=== PATIENT | female | born 1980 | race Caucasian/White ===

== ENCOUNTER 2020-01-11 21:57 | Emergency (ER) | payer OTHER, SELFPAY ==
--- NOTE | ~2020-01-11 | CT_ITS ---
EXAMINATION: CT abdomen pelvis w con DATE: 01/11/2020 23:09 INDICATION: Lower abdominal pain TECHNIQUE: Computed tomography (CT) of the abdomen and pelvis was performed with 100 cc Omnipaque 350 intravenous contrast. The dose-length product was 1502.54 mGy-cm. Automated exposure control and ite rative reconstruction technique were employed. COMPARISON: None. FINDINGS: Lung bases are unremarkable. No significant pleural or pericardial effusion. Status post cholecystectomy. No significant vascular abnormality. Periaortic lymph nodes are likely r eactive, largest measuring 1.4 cm, axial image 99. Small fat-containing umbilical hernia. The liver, spleen, pancreas, adrenal glands and right kidney are unremarkable. There is a 2 cm left r enal cyst. 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 Bowel pattern is nonobstructive. There is no fluid in the endometrium with enhancement of the endomet rial lining. No free air or free fluid. No bowel obstruction. IMPRESSION: 1. Moderate fluid in the endometrium with enhancement of the endometrial lining. Differential diagnos is includes simple fluid, hemorrhagic content/clot and infection. Reviewed, dictated and finalized at location A. [employer] IMPRESSION: 1. Moderate fluid in the endometrium with enhancement of the endometrial lining . Differential diagnosis includes simple fluid, hemorrhagic content/clot and in fection.
[2020-01-11 21:59] VITALS: BP 130/97; PULSE 85; RESP 16; TEMP 36.1; O2SAT 100
[2020-01-11 22:30] LABS: Basophils Percent Auto 0.4 % (0.2-1.2); Eosinophils Absolute Auto 0.2 K/mm3 (0-0.3); Eosinophils Percent Auto 2.6 % (0-4.4); Hematocrit 37.8 % (37.0-47.0); Hemoglobin 12.9 g/dL (12.0-15.0); Immature Granulocyte Absolute 0.03 K/mm3 (0.00-0.031); Immature Granulocyte Percent A 0.4 % (0-0.5); Lymphocytes Absolute Auto 1.86 K/mm3 (0.9-3.2); Lymphocytes Percent Auto 25.9 % (18.3-44.2); Mean Corpuscular HGB Conc 34.1 g/dl (32-36); Mean Corpuscular Hemoglobin 30.4 pg (26-34); Mean Corpuscular Volume 88.9 fl (80-100); Mean Platelet Volume 9.9 fl (7.4-10.4); Monocytes Absolute Auto 0.5 K/mm3 (0.1-0.6); Monocytes Percent Auto 7.5 % (2.6-8.5); Neutrophils Absolute Auto 4.5 K/mm3 (1.3-6.7); Neutrophils Percent Auto 63.2 % (45.5-73.1); Platelet Count Result 223 k/mm3 (150-375); Red Blood Count 4.25 M/mm3 (4.2-5.4); Red Cell Distribution Width 12.9 % (11.5-14.5); White Blood Count 7.2 K/mm3 (4.5-10.0)
[2020-01-11 22:34] LABS: Mucus Urine Heavy /lpf; Squamous Epithelial Cell Urine Moderate /hpf (Few); WBC Urine 0-3 /hpf
--- NOTE | 2020-01-11 22:34 | ED.ABDPAIN ---
HPI - Abdominal Pain General Chief Complaint: Abdominal Pain Stated Complaint: lower abd pain, nausea, dairrhea Time Seen by Provider: 01/11/20 22:32 Source: patient and RN notes reviewed Mode of arrival: ambulatory Limitations: no limitations History of Present Illness HPI narrative: Pt is a 39 y/o female with a Hx of hepatitis C, who presents to the ED with c/o rt lower ABD pain starting this morning and worsening in the past 6 hours. She describes her pain as stabbing. Pt states that her pain initially felt like menstrual cramps, but denies any current vaginal bleeding. She also reports mild diarrhea, but denies any fever or chills. MD elicited complaint: abdominal pain Onset (ago): day(s) (1) Pain Consistency: other (worsening) Location: RLQ Quality: stabbing Associated symptoms: diarrhea Related Data Home Medications Medication Instructions Recorded Confirmed clonazepam 01/11/20 escitalopram oxalate mg 01/11/20 Allergies Allergy/AdvReac Type Severity Reaction Status Date / Time Penicillins Allergy Severe Rash Verified 01/11/20 22:02 Review of Systems Review of Systems: All systems reviewed & are unremarkable except as noted in HPI and below Constitutional: Constitutional: Denies chills and Denies fever(s) Gastrointestinal: Gastrointestinal: Reports abdominal pain (rt lower ABD pain) and Reports diarrhea Genitourinary: Genitourinary: Denies abnormal vaginal bleeding PMF Past Medical History Medical History Anxiety Depression Hepatitis C Surgical History Surgical History History of endometrial ablation Hx of cholecystectomy Hx of tubal ligation Social History Social History Smoking status: Current every day smoker Gender identity (if verbalized by the patient): Female Exam Const: General: cooperative, healthy appearing, comfortable, no acute distress, well developed, alert and awake; No confusion Orientation/consciousness: oriented to person, oriented to place, oriented to time, patient oriented x3 and No confusion Limitations: no limitations Resp: Effort & Inspection: normal respiratory effort, able to speak in complete sentences, no respiratory distress and not tachypneic Auscultation: clear to auscultation bilaterally, no crackles, no rales, no rhonchi and no wheezes Cardio: Rate: regular rate Rhythm: regular rhythm GI: Inspection: normal to inspection GI Palp: Yes Tenderness to palpation present (GI) (rt lower ABD tenderness) Auscultation: normal bowel sounds : General: Yes no CVA tenderness Skin: General skin exam: normal color, no rashes or lesions noted, elasticity normal and turgor normal Neuro: General: oriented to person, oriented to place, oriented to time, patient oriented x3, tone normal, moves all extremities and No confusion Speech: No Abnormal speech present Sensory Exam: No Sensory deficit (Neuro) Extrem: General: normal to inspection, full ROM and capillary refill normal Psych: Appearance: grossly normal and well kempt Mental Status: mental status grossly normal Speech and movement: Normal speech and movement present Affect: normal affect Attitude: cooperative Thought process: Normal thought process present Thought content: Yes Normal thought content present Insight: Good insight present (Psych) Judgement: Good judgement present (Psych) Course Vital Signs Vital signs: Vital Signs Temperature 36.1 C L 01/11/20 21:59 Pulse Rate 85 01/11/20 21:59 Respiratory Rate 16 01/11/20 21:59 Blood Pressure 130/97 H 01/11/20 21:59 Pulse Oximetry 100 01/11/20 21:59 Temperature 36.1 C L 01/11/20 21:59 Pulse Rate 65 01/11/20 23:29 Respiratory Rate 12 01/11/20 23:29 Blood Pressure 120/80 01/11/20 23:29 Pulse Oximetry 97 01/11/20 23:29 MDM - Abdominal Pain Lab Data Result diagram
[2020-01-11 22:36] VITALS: BP 138/94; PULSE 2; RESP 20; O2SAT 100
[2020-01-11 22:41] LABS: Alanine Aminotransferase 14 U/L (4-35); Alkaline Phosphatase 60 U/L (38-126); Aspartate Amino Transferase 20 U/L (14-36); Bilirubin,Total 0.5 mg/dL (0.2-1.3); Blood Urea Nitrogen 7 mg/dL (7-17); Calcium 8.8 mg/dL (8.4-10.2); Carbon Dioxide 22 mmol/L (22-30); Chloride 104 mmol/L (98-107); Estimated CRCL calculation 102 ml/min; Estimated Glomerular Filt Rate > 60; Glucose 127 mg/dL (65-105); Lipase 24 U/L (23-300); Potassium 3.6 mmol/L (3.4-5.0); Sodium 138 mmol/L (137-145)
[2020-01-11 22:43] LABS: Add Urine Microscopic? YES; Appearance Urine Clear (Clear); Bacteria Urine Trace /hpf; Bilirubin Urine Negative (Negative); Blood Urine 1+ (Negative); Color Urine Yellow (Yellow); Glucose Urine UA Negative (Negative); Ketones Urine Negative (Negative); Leukocyte Esterase Ur Negative LEU/UL (Negative); Nitrate Urine Negative (Negative); Protein Urine Negative (Negative); Specific Grav Ur 1.019 (1.001-1.035); Urobilinogen Urine Negative mg/dL (<2.0)
[2020-01-11] MEDS: KETOROLAC 30 MG/ML VIAL (*BKC) IV PUSH (22:52)
[2020-01-11] MEDS: PROMETHAZINE HCL 25 MG/ML AMPUL 12.5 MG IV PUSH (22:53)
[2020-01-11 23:29] VITALS: BP 120/80; PULSE 65; RESP 12; O2SAT 97
[2020-01-12 00:20] VITALS: BP 128/88; PULSE 80; RESP 19; O2SAT 97
== END 2020-01-12 00:20 | disposition home or self-care (01) ==
PROVIDERS: Emergency Medicine; Emergency Provider Emergency Medicine
DX: R10.31 Right lower quadrant pain (principal); F41.9 Anxiety disorder, unspecified; F32.9 Major depressive disorder, single episode, unspecified; F17.200 Nicotine dependence, unspecified, uncomplicated; Z86.19 Personal history of other infectious and parasitic diseases
CPT/HCPCS: 36415; 74177; 80053; 81001; 81025; 83690; 85025; 96374; 96375; 99284; A9270; J1885; J2550; Q9967

== ENCOUNTER 2020-04-05 07:08 | Outpatient (CLI) | payer OTHER, SELFPAY ==
[2020-04-05 20:52] LABS: SARS-CoV-2 RNA PCR Negative
== END 2020-04-05 07:09 | disposition home or self-care (01) ==
LOC: ANHCOVIDDT 07:09
PROVIDERS: Visit Provider Obstetrics & Gynecology
DX: Z01.818 Encounter for other preprocedural examination (principal); Z11.59 Encounter for screening for other viral diseases
CPT/HCPCS: 87635; U0003

== ENCOUNTER 2020-04-05 09:57 | Outpatient (CLI) | payer OTHER, SELFPAY ==
[2020-04-05 11:03] LABS: Hematocrit 39.7 % (37.0-47.0); Hemoglobin 13.4 g/dL (12.0-15.0)
[2020-04-05 11:14] LABS: Prothrombin Time 12.7 Seconds (11.1-14.7)
[2020-04-05 11:15] LABS: Partial Thromboplastin Time 29.7 SECONDS (22.3-36.8)
[2020-04-05 11:28] LABS: Blood Urea Nitrogen 12 mg/dL (7-17); Calcium 9.1 mg/dL (8.4-10.2); Carbon Dioxide 24 mmol/L (22-30); Chloride 107 mmol/L (98-107); Estimated Glomerular Filt Rate > 60; Glucose 86 mg/dL (65-105); Potassium 3.9 mmol/L (3.4-5.0); Sodium 136 mmol/L (137-145)
== END 2020-04-05 09:58 | disposition home or self-care (01) ==
LOC: ANHSURGERY 09:59
PROVIDERS: Anesthesiology; Visit Provider Obstetrics & Gynecology
DX: Z01.818 Encounter for other preprocedural examination (principal); N92.0 Excessive and frequent menstruation with regular cycle; B19.20 Unspecified viral hepatitis C without hepatic coma
CPT/HCPCS: 36415; 80048; 85014; 85018; 85610; 85730; 86850; 86900; 86901

== ENCOUNTER 2020-04-08 01:30 | Day surgery (SDC) | payer OTHER, SELFPAY ==
[2020-04-03 08:53] VITALS: BMI 39.9
[2020-04-08] VITALS (14 sets, daily range): BP systolic 99–170; BP diastolic 60–92; PULSE 58–94; RESP 14–24; TEMP 36.2–37.1; O2SAT 94–100
[2020-04-08] MEDS: LACTATED RINGERS 1,000 ML 30 ML IV CONT ×2 (06:43→10:28)
[2020-04-08] MEDS: IBUPROFEN IV 800 MG/200 ML 800 MG/200 ML BAG 400 MG IVPB (06:50)
--- NOTE | 2020-04-08 06:50 | WPDANESEPPF ---
Anes - Initial Pre Proc Eval Procedure: Operation Date: 04/08/20 07:30 Proposed Procedures p Total Laparoscopic Assisted Hysterectomy - Yojana Whiting MD Date/Time: 04/08/20 06:50 Surgeon: Yojana Whiting MD Pre Op Diagnosis: Menorrhagia, dysmenorrhea Patient Data Age: 39 Gender: F Height: 5 ft 5 in Weight: 108.86 kg Allergies Allergy/AdvReac Type Severity Reaction Status Date / Time Penicillins Allergy Severe Rash Verified 04/03/20 08:55 Home Medications Medication Instructions Recorded Confirmed Type clonazepam 0.5 mg PO DIRECTED PRN 01/11/20 04/03/20 History escitalopram oxalate 20 mg PO DAILY 01/11/20 04/03/20 History hydrocodone-acetaminophen 1 - 2 tablet PO Q4H PRN 04/03/20 04/03/20 History Patient hx anesthesia problems: none Family hx anesthesia problems: none PMFSH Past Medical History Medical History Anxiety Depression Hepatitis C Surgical History Surgical History History of endometrial ablation Hx of cholecystectomy Hx of tubal ligation Social History Social History Smoking status: Current every day smoker Gender identity (if verbalized by the patient): Female Anes - Eval Final PreProcedure Day of Procedure 04/08/20 06:50 Patient weight: morbidly obese Heart: regular rate and rhythm Lungs: decreased breath sounds Airway: Mallampati scale class 1 Neurological: alert and oriented Last oral intake: >/= 8 hours ASA classification: III Emergent: no Anesthetic plan: proceed Anesthesia type and monitoring: general ETT and standard monitoring Informed Consent: The patient's anesthetic plan and its attendant risks and benefits were discussed with the patient/family/POA. Questions were solicited and answers provided to the satisfaction of the patient/family/POA.
--- NOTE | 2020-04-08 07:22 | WPDHPUPDATE1 ---
History and Physical Update Update Date/Time: 04/08/20 07:22 History and Physical has been reviewed, including an updated exam of the patient. There are NO changes in the patient's condition. Risks, benefits, and alternatives have been discussed and questions answered. Patient agrees to proceed with procedure.
[2020-04-08] MEDS: CLINDAMYCIN 900 MG/NS 50 ML 900 MG/50 ML PIGGYBACK 50 MG IVPB (07:44)
[2020-04-08] MEDS: GENTAMICIN SULFATE INJ 390 MG in DEXTROSE 5% 100 ML 100 MG IVPB (07:47)
--- NOTE | 2020-04-08 10:21 | P.OP_ITS ---
Procedure Note - Detailed Date of procedure: 04/08/20 Pre-op diagnosis: Menorrhagia, dysmenorrhea Severe menorrhagia, dysmenorrhea Post-op diagnosis: same Procedure performed: Total laparoscopic hysterectomy bilateral salpingo- oophorectomy Description of procedure: The patient was taken to the operating room. She was prepped and draped in the dorsal lithotomy position. A speculum was placed in the vagina. The cervix was grasped with a tenaculum. Stay sutures were placed at 3 and 9:00 a.m. of 0 Vicryl. The stay sutures were brought through the Rupal up. The CHUN manipulator was placed in the vagina with a fixed Rupal cup. The cup was then pushed up around the cervix. The sutures were tied to the handle of the CHUN manipulator. A 5 mm incision was made on the abdominal skin of the left upper quadrant using a scalpel. A 5 mm trocar was inserted into the intra-abdominal cavity under direct visualization the scope. Pneumoperitoneum was achieved. An 11 mm incision was made in the left lower quadrant of the abdomen with a scalpel. A 11 mm trocar was inserted into the intra-abdominal cavity under direct visualization the scope. A 5 mm periumbilical incision was made. A 5 mm scope was placed into the intra-abdominal cavity under direct visualization of the scope. The ureters were identified. The ureters were observed to be away from the infundibulopelvic ligaments. These infundibulopelvic ligaments were isolated, cauterized, and transected with LigaSure cautery. This was done in a bilateral fashion. The para ovarian tissue along the pelvic sidewall was cauterized and transected in a bilateral fashion using the ligature cautery. The round ligaments were cauterized and transected bilaterally with LigaSure cautery. The broad ligaments were cauterized and transected along the lateral aspects of the uterus down the level of the uterine arteries. A bladder flap was created using sharp and blunt dissection. The ureters were dissected out bilaterally down to the level of the uterine arteries. The could be visualized from the pelvic brim down the uterine arteries. Staying very close to the cervix the parametrium was cauterized transected in a stepwise fashion down to the level of the Rupal cup. The Bladder flap was moved distally over the Rupal cup using sharp and blunt dissection. The cup was visualized and a complete 360 degree papillary around the cervix. An incision was made with unipolar cautery down under the Rupal cup creating a colpotomy incision all the way around the cervix. The uterus tubes and ovaries were taken out through the vagina. A pneumo occluder was placed in the vagina. The vagina was closed with 0 V lock suture in a running fashion. The ureters were identified again and found to be intact elevated and the uterine arteries. The pelvis was irrigated with a copious amount of antibiotic irrigation. The pneumoperitoneum was reduced. The trocars were removed. The skin was closed subcuticular 4 Monocryl covered with Dermabond. The pneumo occluder was removed from the vagina. The vagina was irrigated with Betadine. The patient tolerated the procedure well. She was taken to the recovery room in stable condition. Sponge lap and needle counts were correct x2. Anesthesia: GETA Surgeon: Yojana Whiting MD Estimated blood loss (mL): 200 Drains: No Packing: No Pathology: yes Complications: No immediate complications Condition: stable Disposition: PACU Findings: Grossly normal-appearing tubes and ovaries. Enlarged uterus.
--- NOTE | 2020-04-08 10:26 | SUR.OPER ---
CHECKED OUT 1 AMP TERRAAL FOR THIS PT AND GAVE TO AMOR WESTFALL CRNA FOR THIS PT
--- NOTE | 2020-04-08 11:03 | SUR.PHASEI ---
1104 SPOKE WITH PARTNER ZACKARY PER PHONE- UPDATE & ROOM NUMBER [id number].
--- NOTE | 2020-04-08 11:30 | PC.NURSE ---
This patient, Ingrid Long, was received from PACU on 04/08/20 at 1130. Patient/family oriented to unit policies and routines
[2020-04-08] MEDS: ESTRADIOL 7 DAY 0.1 MG PATCH TRANSDERM (11:50)
[2020-04-08] MEDS: LACTATED RINGERS 1,000 ML 125 ML (12:15)
[2020-04-08] MEDS: KETOROLAC 30 MG/ML VIAL (*BKC) IV PUSH ×2 (12:20→19:53)
[2020-04-08] MEDS: MORPHINE SULFATE 4 MG/ML INJ IV PUSH ×2 (12:25→16:00)
[2020-04-08] MEDS: SIMETHICONE 80 MG TAB.CHEW PO (16:13)
[2020-04-08] MEDS: CLONAZEPAM 0.5 MG TAB PO (21:41)
[2020-04-09 05:27] VITALS: BP 124/78; PULSE 64; RESP 18; TEMP 36.5; O2SAT 98
[2020-04-09] MEDS: SIMETHICONE 80 MG TAB.CHEW PO (07:00)
[2020-04-09] MEDS: IBUPROFEN 600 MG TABLET PO (07:00)
[2020-04-09] MEDS: ESCITALOPRAM OXALATE 10 MG TABLET 20 MG PO (07:01)
--- NOTE | 2020-04-09 07:29 | PM.GYNPNOP ---
[employer]CHIT[employer] - A/P Postoperative Procedures: Procedures Operation Date: 04/08/20 07:30 Actual Procedures Side Surgeon p Total Laparoscopic Assisted Hysterectomy, bilatersl salpingectomy, bilateral oopherectomy Bilateral Yojana Whiting MD Postoperative day: 1 Postoperative status: doing well and other (Tollerating Regular Diet) Postoperative plan: routine post-op care and discharge Time Spent With Patient Time: Total time spent is greater than 50% in coordination of care (as documented) at patient's floor/unit and/or counseling patient: Time with patient: 15 - 25 minutes JAVA [employer] ARCHITECT- PN:Subj Post-Op Subjective Date/time seen: 04/09/20 07:29 Subjective: patient reports feeling better, pain is well controlled and patient is tolerating oral intake Exam Const: General: cooperative, healthy appearing, comfortable and no acute distress Resp: Auscultation: no crackles, no rales, no rhonchi and no wheezes Cardio: Rhythm: regular rhythm Heart sounds: no click and no murmurs GI: Inspection: non-distended Auscultation: normal bowel sounds Other: Incisions - CDI Extrem: General: normal to inspection, no pedal edema and no calf tenderness J[employer] ARCHITECT - PN: Obj Data Vital Signs Vital Signs: Vital Signs - 24 hr 04/08/20 10:28 04/08/20 10:40 04/08/20 10:55 Temperature 97.2 F L Pulse Rate 94 88 90 Respiratory Rate 16 14 14 Blood Pressure 136/72 129/77 119/69 Pulse Oximetry 99 100 100 04/08/20 11:10 04/08/20 11:20 04/08/20 11:45 Temperature Pulse Rate 81 75 75 Respiratory Rate 14 14 18 Blood Pressure 122/71 115/69 113/68 Pulse Oximetry 94 94 97 04/08/20 12:00 04/08/20 12:30 04/08/20 13:00 Temperature 98 F 98.6 F Pulse Rate 89 81 71 Respiratory Rate 18 18 18 Blood Pressure 99/81 L 107/72 107/60 Pulse Oximetry 98 97 98 04/08/20 14:00 04/08/20 15:00 04/08/20 19:40 Temperature 98.8 F Pulse Rate 71 81 65 Respiratory Rate 18 18 24 H Blood Pressure 103/60 107/84 133/89 Pulse Oximetry 100 100 100 04/08/20 23:10 04/09/20 05:27 Temperature 98.6 F 97.7 F Pulse Rate 68 64 Respiratory Rate 18 18 Blood Pressure 128/75 124/78 Pulse Oximetry 97 98 Intake/Output Intake/Output: Intake & Output 04/06/20 04/07/20 04/08/20 04/09/20 23:59 23:59 23:59 23:59 Intake Total 1100 Output Total 1475 Balance -375 Meds/Results Medications: Active Medications Generic Name Dose Route Start Last Admin Trade Name Freq PRN Reason Stop Dose Admin Hydrocodone Bitart/Acetaminophen 1 tab 04/08/20 11:23 [place] 5-325 Mg PO Q3H PRN Pain Rated 5 or Less Hydrocodone Bitart/Acetaminophen 1 tab 04/08/20 11:23 04/09/20 07:00 [place] 10-325 Mg PO 1 tab Q3H PRN Administration Pain Rated 6 or Greater Escitalopram Oxalate 20 mg 04/09/20 09:00 04/09/20 07:01 Lexapro PO 10 mg DAILY ZAKIA Administration Estradiol 0.1 mg 04/08/20 10:30 04/08/20 11:50 [place] 7 Day TRANSDERM 0.1 mg Mo@0900 ZAKIA Administration Ibuprofen 600 mg 04/08/20 11:23 04/09/20 07:00 Motrin PO 600 mg Q6H PRN Administration Cramping Ketorolac Tromethamine 30 mg 04/08/20 12:10 04/08/20 19:53 Toradol Inj IV PUSH 04/13/20 12:11 30 mg Q6H PRN Administration Pain Rated 4-6 Morphine Sulfate 4 mg 04/08/20 12:10 04/08/20 16:00 Morphine Sulfate Inj IV PUSH 4 mg Q4H PRN Administration Severe breakthrough pain Naloxone HCl 0.1 mg 04/08/20 11:23 Narcan IV PUSH Q2M PRN Respiratory rate less than 10 Naloxone HCl 0.1 mg 04/08/20 12:10 Narcan IV PUSH Q2M PRN Respiratory rate less than 10 Simethicone 80 mg 04/08/20 17:00 04/09/20 07:00 Mylicon PO 80 mg QID ZAKIA Administration
[2020-04-09 08:05] VITALS: BP 141/83; PULSE 72; RESP 18; TEMP 36.6; O2SAT 97
--- NOTE | 2020-04-09 10:18 | WPDANESPN ---
Anes - Prog Note Post-Op Date/Time: 04/09/20 10:18 Cardiovascular status: normal Respiratory status: normal Airway patency: baseline Mental status: baseline Post-Op hydration status: normal Vital Signs: Last Vital Signs Temp 36.6 C 04/09/20 08:05 Pulse 72 04/09/20 08:05 Resp 18 04/09/20 08:05 BP 141/83 H 04/09/20 08:05 Pulse Ox 97 04/09/20 08:05 I/O: Intake & Output 04/08/20 04/09/20 04/09/20 23:59 07:59 15:59 Intake Total 600 Output Total 1000 Balance -400 Post-procedural complaints: none Patient Feedback: Patient satisfied with anesthetic care.
== END 2020-04-09 09:52 | disposition home or self-care (01) ==
LOC: ANHSURGERY 09:04 → ANHOB2 11:44
PROVIDERS: Visit Provider Obstetrics & Gynecology
PROC: 0UT9FZZ Resection of Uterus, Via Natural or Artificial Opening With Percutaneous Endoscopic Assistance (ICD-10-PCS; CPT 58552; principal; 2020-04-08 07:30)
DX: N92.0 Excessive and frequent menstruation with regular cycle (principal); N94.6 Dysmenorrhea, unspecified
CPT/HCPCS: 58552; 88307; 99199; A9270; J1170; J1580; J1741; J1885; J2001; J2250; J2270; J2405; J2704; J3010; J7030; J7120

== ENCOUNTER 2020-04-15 07:32 | Emergency (ER) | payer OTHER, SELFPAY ==
--- NOTE | ~2020-04-15 | CT_ITS ---
EXAMINATION: CT abdomen pelvis w con EXAM DATE: 04/15/2020 09:06 INDICATION: Low abdominal pain and vomiting. Recent hysterectomy. TECHNIQUE: Spiral CT of the abdomen and pelvis was performed following intravenous injection of 100 m L Omnipaque 350. Axial, coronal and sagittal images were reviewed. The dose-length product (DLP) fo r this examination was 1417.81 mGy-cm. The exposure was tailored according to patient size (auto mA exposure control), and iterative reconstruction (ASIR) was used as additional dose reduction techniqu e. Comparison is made to prior examination from 01/11/2020. FINDINGS: The liver, spleen, adrenal glands and pancreas are unremarkable. There are cholecystectomy clips. Portal and splenic veins are patent. Kidneys enhance symmetrically. There is no hydronephr osis. There is a left renal cyst measuring 1.8 cm. Small pocket of fluid in the hysterectomy bed pro bably postoperative seroma measuring up to 3.8 cm. Infected fluid not radiologically excludable The b ladder is unremarkable. There is no retroperitoneal or pelvic lymphadenopathy. The appendix is not positively visualized. There is no pericecal inflammatory change to suggest appe ndicitis. The stomach and small bowel are unremarkable. There is expected amount of colonic stool. No free intraperitoneal gas. The heart is normal in size. There are no pericardial or pleural e ffusions. The lung bases are unremarkable. The bones are unremarkable. IMPRESSION: Pelvic fat stranding, small fluid collection likely postoperative changes. Infected fluid not radiographically excludable. Reviewed, dictated and finalized at location A. IMPRESSION: Pelvic fat stranding, small fluid collection likely postoperative c hanges. Infected fluid not radiographically excludable.
[2020-04-15 07:38] VITALS: BP 129/99; PULSE 70; RESP 17; TEMP 36.9; O2SAT 99
--- NOTE | 2020-04-15 08:12 | ED.GENADULT ---
HPI - General Adult General Chief complaint: Unspecified Stated complaint: post op compl Time Seen by Provider: 04/15/20 07:38 Source: patient Mode of arrival: ambulatory Limitations: no limitations History of Present Illness HPI narrative: This patient is a 39 year old female who is POD 7 s/p total hysterectomy that presents to ER for evaluation of nausea , vomiting and intermittent abdominal pain. Patient had surgery on 04/08/[address] Whiting at [facility], and she states she was doing well until Wednesday. She has been taking colace every 8 hours until Wednesday because she starting having multiple bowel movements and passing gas. She reports she is having intermittent diffuse sharp abdominal pain when she is passing gas. She has come to the ER this morning because she is concerned that she started vomiting. She ran out of her pain medication but she has been replacing it with 800 mg ibuprofen every 4 hours. Her last bowel movement was this morning and she decribes it as light yellow color. She denies melena or blood in her stool. She also denies urinary symptoms. Onset (ago): day(s) (3) Related Data Home Medications Medication Instructions Recorded Confirmed clonazepam 0.5 mg PO DIRECTED PRN 01/11/20 04/08/20 escitalopram oxalate 20 mg PO DAILY 01/11/20 04/08/20 hydrocodone-acetaminophen 1 - 2 tablet PO Q4H PRN 04/03/20 04/08/20 Allergies Allergy/AdvReac Type Severity Reaction Status Date / Time Penicillins Allergy Severe Rash Verified 04/15/20 08:20 Review of Systems Review of Systems: All systems reviewed & are unremarkable except as noted in HPI and below Constitutional: Constitutional: Denies fever(s) Cardiovascular: Cardiovascular: Denies chest pain Respiratory: Respiratory: Denies cough and Denies dyspnea Gastrointestinal: Gastrointestinal: Reports abdominal pain, Reports diarrhea, Reports nausea and Reports vomiting Genitourinary: Genitourinary: Denies hematuria, Denies nocturia, Denies dysuria and Denies urinary incontinence PMFSH Social History Social History Smoking status: Current every day smoker Gender identity (if verbalized by the patient): Female Exam Narrative: Exam Narrative: GENERAL: Well-appearing, well-nourished, and in no acute distress. HEAD: Normocephalic, atraumatic EYES: PERRLA and EOMI, conjunctiva clear without discharge THROAT:Mucous membranes moist, NECK: Supple, without lymphadenopathy or mass RESPIRATORY: No respiratory distress, Airway patent, Respirations non-labored, Clear to auscultation without rales, rhonchi or wheeze HEART: Regular rate and rhythm. No murmur heard. Normal peripheral pulses. . EXTREMITIES: No edema, normal strength with full range of motion. NEURO: Alert and oriented x3. CN 2-12 grossly intact. No focal deficits. PSYCH: Normal mood and affect. GI: GI Palp: Yes Soft to palpation, Yes Tenderness to palpation present (GI) (lower abdomen bilateral lower quadrant), No Guarding due to palpation present (GI) and No Rigid due to palpation Skin: Other: abdomen with port hole incisions are closed intact, no drainage, no surrounding erythema. bruising to abdominal wall Course Reevaluation(s) Reevaluation #1: Patient states she feels better. She was able to PO challenge. She is standing up in good spirits. she has not additional questions are concerns. Date: 04/15/20 Time: 10:42 Consultations Consultation #1: I discussed case with Dr. Ugalde. PAtient will postoperative changes on CT, no fever and s ymptomaticically improved, She states patient likely has follow up appointment this week so she can follow up . Date: 04/15/20 Time: 10:42 Vital Signs Vital signs: Vital Signs Temperature 98.4 F 04/15/20 07:38 Pulse Rate 70 04/15/20 07:38 Respiratory Rate 17 04/15/20 07:38 Blood Pressure 129/99 H 04/15/20 07:38 Pulse Oximetry 99 04/15/20 07:38 Te
[2020-04-15] MEDS: LACTATED RINGERS 1,000 ML 999 ML IV CONT (08:21)
[2020-04-15] MEDS: PANTOPRAZOLE SODIUM IV 40 MG VIAL IV PUSH (08:21)
[2020-04-15] MEDS: ONDANSETRON INJ 4 MG/2 ML VIAL IV PUSH (08:21)
[2020-04-15 08:29] LABS: Basophils Percent Auto 0.4 % (0.2-1.2); Eosinophils Absolute Auto 0.5 K/mm3 (0-0.3); Eosinophils Percent Auto 6.8 % (0-4.4); Hematocrit 37.1 % (37.0-47.0); Hemoglobin 12.5 g/dL (12.0-15.0); Immature Granulocyte Absolute 0.06 K/mm3 (0.00-0.031); Immature Granulocyte Percent A 0.8 % (0-0.5); Lymphocytes Absolute Auto 1.61 K/mm3 (0.9-3.2); Lymphocytes Percent Auto 21.6 % (18.3-44.2); Mean Corpuscular HGB Conc 33.7 g/dl (32-36); Mean Corpuscular Hemoglobin 30.6 pg (26-34); Mean Corpuscular Volume 90.9 fl (80-100); Monocytes Absolute Auto 0.4 K/mm3 (0.1-0.6); Monocytes Percent Auto 5.4 % (2.6-8.5); Neutrophils Absolute Auto 4.9 K/mm3 (1.3-6.7); Platelet Count Result 256 k/mm3 (150-375); Red Blood Count 4.08 M/mm3 (4.2-5.4); Red Cell Distribution Width 13.1 % (11.5-14.5); White Blood Count 7.5 K/mm3 (4.5-10.0)
[2020-04-15 08:32] LABS: Add Urine Microscopic? NO; Appearance Urine Clear (Clear); Bilirubin Urine Negative (Negative); Blood Urine Negative (Negative); Color Urine Straw (Yellow); Glucose Urine UA Negative (Negative); Ketones Urine Negative (Negative); Leukocyte Esterase Ur Negative LEU/UL (Negative); Nitrate Urine Negative (Negative); Protein Urine Negative (Negative); Specific Grav Ur 1.016 (1.001-1.035); Urobilinogen Urine Negative mg/dL (<2.0)
[2020-04-15 08:43] LABS: Alanine Aminotransferase 11 U/L (4-35); Albumin Level 4.2 g/dL (3.5-5.1); Alkaline Phosphatase 69 U/L (38-126); Aspartate Amino Transferase 17 U/L (14-36); Bilirubin,Total 0.3 mg/dL (0.2-1.3); Blood Urea Nitrogen 15 mg/dL (7-17); Calcium 9.1 mg/dL (8.4-10.2); Carbon Dioxide 21 mmol/L (22-30); Chloride 108 mmol/L (98-107); Estimated Glomerular Filt Rate > 60; Glucose 106 mg/dL (65-105); Lipase 34 U/L (23-300); Sodium 136 mmol/L (137-145)
[2020-04-15 08:54] VITALS: BP 118/68; PULSE 72; RESP 18; O2SAT 100
[2020-04-15 09:47] VITALS: BP 127/89; PULSE 78; RESP 16; O2SAT 100
--- NOTE | 2020-04-15 10:02 | PC.NURSE ---
PT STATES THAT SHE IS FEELING GOOD, NOT NAUSEATED AFTER EATING SOME PEANUT BUTTER CRACKERS.
[2020-04-15 10:37] VITALS: BP 138/75; PULSE 78; RESP 16; O2SAT 100
[2020-04-15 11:02] VITALS: BP 119/75; PULSE 78; RESP 16; O2SAT 100
== END 2020-04-15 11:03 | disposition home or self-care (01) ==
PROVIDERS: Emergency Provider General Practice; PCP Obstetrics & Gynecology
DX: R11.2 Nausea with vomiting, unspecified (principal); Z98.890 Other specified postprocedural states; F17.200 Nicotine dependence, unspecified, uncomplicated
CPT/HCPCS: 36415; 74177; 80053; 81003; 83690; 85025; 96361; 96374; 96375; 99284; C9113; J2405; J7120; Q9967

== ENCOUNTER 2020-05-25 14:12 | Emergency (ER) | payer OTHER, SELFPAY ==
--- NOTE | ~2020-05-25 | XR_ITS ---
XR hand RT min 3V DATE: 05/25/2020 14:36 INDICATION: Patient punched a wall. Metacarpal pain and swelling. TECHNIQUE: 3 views COMPARISON: None FINDINGS: No fracture or dislocation, periosteal reaction or bone destruction. 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 IMPRESSION: No fracture or dislocation Reviewed, dictated and finalized at location A. IMPRESSION: No fracture or dislocation
[2020-05-25 14:16] VITALS: BP 139/99; PULSE 90; RESP 18; TEMP 36.8; O2SAT 100
--- NOTE | 2020-05-25 14:58 | ED.UPPEXIN ---
HPI - Extremity Injury (Upper) General Chief Complaint: Extremity Injury, Upper Stated Complaint: right hand injury Time Seen by Provider: 05/25/20 14:20 Source: patient Mode of arrival: ambulatory Limitations: no limitations History of Present Illness HPI narrative: This is a 39-year-old female that presents the emergency department for right hand injury yesterday. Reports she punched a wall. Reports since she has had pain in the 3rd-5th metacarpals. Worse with movement and relieved with rest. Denies decreased range of motion or numbness. Related Data Home Medications Medication Instructions Recorded Confirmed clonazepam 0.5 mg PO DIRECTED PRN 01/11/20 04/08/20 escitalopram oxalate 20 mg PO DAILY 01/11/20 04/08/20 hydrocodone-acetaminophen 1 - 2 tablet PO Q4H PRN 04/03/20 04/08/20 Allergies Allergy/AdvReac Type Severity Reaction Status Date / Time Penicillins Allergy Severe Rash Verified 05/25/20 14:18 Review of Systems Review of Systems: Narrative: CONSTITUTIONAL: Denies fever MUSCULOSKELETAL: Reports joint pain, and myalgia. NEUROLOGIC: Denies numbness All systems reviewed & are unremarkable except as noted in HPI and below PMFSH Social History Social History Smoking status: Current every day smoker Gender identity (if verbalized by the patient): Female Exam Narrative: Exam Narrative: GENERAL: Well-appearing, well-nourished, and in no acute distress. HEAD: Normocephalic, atraumatic. EYES: EOMI. EXTREMITIES: Normal range of motion. Mild edema to the right hand. Normal sensation. Normal radial pulses SKIN: Warm, dry, no rash. NEURO: No focal deficits. Alert and oriented x3. PSYCH: Normal mood and affect Course Vital Signs Vital signs: Vital Signs Temperature 98.2 F 05/25/20 14:16 Pulse Rate 90 05/25/20 14:16 Respiratory Rate 18 05/25/20 14:16 Blood Pressure 139/99 H 05/25/20 14:16 Pulse Oximetry 100 05/25/20 14:16 Temperature 98.2 F 05/25/20 14:16 Pulse Rate 90 05/25/20 14:16 Respiratory Rate 18 05/25/20 14:16 Blood Pressure 139/99 H 05/25/20 14:16 Pulse Oximetry 100 05/25/20 14:16 MDM - Extremity Injury (Upper) MDM Narrative Medical decision making narrative: This is a 39-year-old female that presents the emergency department for right hand pain after an injury yesterday. Right hand x-ray is without acute findings. Patient given João wrap and instructed to rest, ice and take [id number] pain medication as needed. She is to follow-up with primary care doctor. She was given warnings to return to the ER Imaging Data Radiologist's impression: ITS Impressions Hand X-Ray 05/25/20 14:37 IMPRESSION: No fracture or dislocation Critical Care Time Critical Care Time Critical Care Time: No Discharge Plan Discharge Clinical Impression: Hand pain, right Patient Disposition: Home, Self-Care Condition: Stable Instructions: Hand Sprain (ED) Additional Instructions: Return to the emergency department if you experience fever, redness and swelling of your hand, numbness, or any other symptoms that are concerning to you Wear JOÃO. Ice and elevate extremity. Tylenol or ibuprofen as needed for pain Follow up with primary care doctor for further care. Prescriptions: No Action clonazepam 0.5 mg tablet 0.5 mg PO DIRECTED PRN (Reason: Anxiety) RF: 0 escitalopram oxalate 20 mg tablet 20 mg PO DAILY RF: 0 hydrocodone-acetaminophen 5-325 mg tablet 1 - 2 tablet PO Q4H PRN (Reason: Pain) RF: 0 hydrocodone-acetaminophen 5-325 mg tablet 1 - 2 tablet PO Q4H PRN (Reason: pain) Qty: 25 RF: 0 ondansetron HCl [Zofran] 4 mg tablet 4 mg PO Q8H PRN (Reason: nausea and vomiting) Qty: 10 RF: 0 Follow-up/Referrals: PHYSICIAN,PERSONAL BANKING ASSISTANT [Primary Care Provider] - Richard Ruiz MD [Physician] - 1 Week
--- NOTE | 2020-05-25 15:15 | PC.NURSE ---
Patient does not wish to take the motrin prescribed for her. She states she prefers to eat when she takes this medication and will take some at home with food.
[2020-05-25 15:24] VITALS: BP 130/89; PULSE 90; RESP 18; TEMP 36.2; O2SAT 100
== END 2020-05-25 15:26 | disposition home or self-care (01) ==
PROVIDERS: Emergency Provider Emergency Medicine
DX: M79.641 Pain in right hand (principal); F17.200 Nicotine dependence, unspecified, uncomplicated; W22.09XA Striking against other stationary object, initial encounter
CPT/HCPCS: 73130; 99283

== ENCOUNTER 2020-08-12 15:19 | Emergency (ER) | payer OTHER, SELFPAY ==
[2020-08-12 15:41] VITALS: BP 144/81; PULSE 70; RESP 16; TEMP 36.4; O2SAT 98
--- NOTE | 2020-08-12 16:22 | ED.GENADULT ---
HPI - General Adult General Chief complaint: Extremity Injury, Upper Stated complaint: right wrist guerra Time Seen by Provider: 08/12/20 16:22 Source: patient and RN notes reviewed Mode of arrival: ambulatory Limitations: no limitations History of Present Illness HPI narrative: 39-year-old female presents with complaints of pain to right hand-wrist for the past 2 weeks. Increase symptoms for the past 24 hours with tenderness and swelling. Ibuprofen, Tylenol, and Aleve-last this morning at 08:00 with little relief. No known injuries. Ingrid says she does repetitive activities at work with her hands. Intermittent numbnessand tingling into 1st (thumb) and 4th (ring) finger. History of tennis elbow. Radiating pain into 1st (thumb) and 4th (ring) finger. No immobility, suspected foreign body, or abuse. Exacerbating factors consist of movement and manipulation. The relieving factor is rest. The dominant hand is the Right hand. Denies fever or chills. LMP, Hysterectomy. Remains active. The patient reports she have not been diagnosed with COVID-19. The patient reports she is not waiting for the results of a COVID-19 lab test. The patient reports she do not have fever, chills, weakness, or fatigue. The patient reports she do not have a new or worsening cough or shortness of breath. Denies chest pain. The patient reports she do not have any rhinorrhea, congestion, loss of taste, sore throat, nausea, vomiting, abdominal pain, and diarrhea. Tolerating po intake well. Denies recent traveling. Denies concerns for COVID-19 or exposures been home with limited outdoor exposure except for essential household needs, work, and return home. At this time, patient is not suspected of having COVID-19. Some parts of this dictation were generated by voice recognition software and may contain typographical and/or grammatical inaccuracies. Related Data Home Medications Medication Instructions Recorded Confirmed No Home Medications 08/14/20 08/14/20 Allergies Allergy/AdvReac Type Severity Reaction Status Date / Time Penicillins Allergy Severe Rash Verified 08/14/20 12:04 Review of Systems Review of Systems: Narrative: CONSTITUTIONAL: Denies fever, chills, sweats. EYES: Denies visual changes, redness, discharge. ENT: Denies rhinorrhea, congestion, sore throat, otalgia. CARDIOVASCULAR: Denies chest pain, palpitations, edema. RESPIRATORY: Denies dyspnea, wheezing, cough. GASTROINTESTINAL: Denies abdominal pain, nausea, vomiting, diarrhea. GENITOURINARY: Denies dysuria, hematuria, abnormal discharge SKIN: Denies rash or itching. MUSCULOSKELETAL: Denies acute back pain or myalgia. Complains of pain to right hand-wrist. NEUROLOGIC: Denies numbness or focal weakness. PSYCHIATRIC: Denies anxiety or depression. Allergic/Immunologic: Comments: At time of signature, agree with nurse past medical, surgical, social, and family history. There is relevant patient's past medical history pertinent to the presenting complaint, no relevant family history pertinent to the presenting complaint. [facility] Past Medical History Medical History (Updated 08/13/20 @ 00:00 by Allyson Shah) Anxiety Depression Hepatitis C Surgical History Surgical History (Updated 08/12/20 @ 16:34 by KARI Tamayo) History of endometrial ablation History of hysterectomy Hx of cholecystectomy Hx of tubal ligation Family History Family History (Updated 08/12/20 @ 16:35 by KARI Tamayo) Father Unknown family medical history Mother , in 2019 from CHF Hypertension Social History Social History (Updated 08/12/20 @ 16:36 by KARI Tamayo) Smoking packs per day: 0.5 Smoking cigarettes per day: 10.0 Years smoked: 20 Smoking pack-years: 10.00 Smoking status: Current every day smoker Tobacco type: cigarettes Second hand tobacco smoke exposure: No Alcohol intake: never Substance use: current [place]
== END 2020-08-12 16:47 | disposition home or self-care (01) ==
PROVIDERS: Emergency Provider Nurse Practitioner Family
DX: M25.531 Pain in right wrist (principal); F17.210 Nicotine dependence, cigarettes, uncomplicated
CPT/HCPCS: 99213; G0463

== ENCOUNTER 2020-08-14 11:36 | Emergency (ER) | payer OTHER, SELFPAY ==
[2020-08-14 11:39] VITALS: BP 149/104; PULSE 70; RESP 18; TEMP 36.3; O2SAT 98
--- NOTE | 2020-08-14 13:08 | ED.GENADULT ---
HPI - General Adult General Chief complaint: Extremity Injury, Upper Stated complaint: right arm tingling and burning Time Seen by Provider: 08/14/20 12:17 Source: patient Mode of arrival: ambulatory Limitations: no limitations History of Present Illness HPI narrative: 39 years old white female complaining of intermittent tingling numbness and pain of the right forearm including the right hand for months. 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 The above symptoms got worse over the last 7 days. Patient woke up in the middle of the night trying to shake her hands to get rid of the numbness. Patient reports some weak compliance tester of the right hand. Lately patient also complaining of right shoulder pain with movement. Denies any neck pain or any trauma. Patient denies any fever, chills, nausea, vomiting, headache. Weakness or numbness anywhere else. Related Data Allergies Allergy/AdvReac Type Severity Reaction Status Date / Time Penicillins Allergy Severe Rash Verified 08/14/20 12:04 Review of Systems Review of Systems: Narrative: CONSTITUTIONAL: Denies fever, chills, or sweats. EYES: Denies visual changes, redness, or discharge. ENT: Denies rhinorrhea, congestion, sore throat, or otalgia. CARDIOVASCULAR: Denies chest pain, palpitations, or edema. RESPIRATORY: Denies cough or dyspnea. GASTROINTESTINAL: Denies abdominal pain, nausea, vomiting, or diarrhea. GENITOURINARY: Denies dysuria or hematuria. SKIN: Denies rash or itching. MUSCULOSKELETAL: Denies back pain, joint pain, or myalgia. NEUROLOGIC: Denies headache, numbness, or weakness. PSYCHIATRIC: Denies anxiety or depression. [facility] Past Medical History Medical History Anxiety Depression Hepatitis C Surgical History Surgical History History of endometrial ablation History of hysterectomy Hx of cholecystectomy Hx of tubal ligation Family History Family History Father Unknown family medical history Mother , in 2019 from CHF Hypertension Social History Social History Smoking packs per day: 0.5 Smoking cigarettes per day: 10.0 Years smoked: 20 Smoking pack-years: 10.00 Smoking status: Current every day smoker Tobacco type: cigarettes Second hand tobacco smoke exposure: No Alcohol intake: never Substance use: current Substance use type: marijuana Gender identity (if verbalized by the patient): Female Exam Narrative: Exam Narrative: General appearance: Well-developed, well-nourished Skin: Normal color Head: Normocephalic, nontraumatic Eyes: Clear conjunctiva ENT: Oropharynx normal, ears normal, nose normal Neck: Supple, nontender Chest and respiratory: Airway patent, no respiratory distress, no accessory muscle use Heart: Regular rate/rhythm Abdomen: Soft, nontender, no organomegaly, quiet bowel sounds Vascular: Normal peripheral pulses, normal capillary refill. Musculoskeletal: Diffuse tenderness right shoulder, no bruises, no swelling, no erythema, no warmth, slight decrease in compliance tester of the right hand. Neurologic: Alert and oriented ?3, INOCULATOR is normal as tested, no gross motor deficit Course Course Emergency Course: Stable Vital Signs Vital signs: Vital Signs Temperature 36.3 C L 08/14/20 11:39 Pulse Rate 70 08/14/20 11:39 Respiratory Rate 18 08/14/20 11:39 Blood Pressure 149/104 H 08/14/20 11:39 Pulse Oximetry 98 08/14/20 11:39 Temperature 36.3 C L 08/14/20 11
[2020-08-14 13:30] VITALS: BP 128/80; PULSE 80; RESP 18; TEMP 36.6; O2SAT 99
== END 2020-08-14 13:32 | disposition home or self-care (01) ==
PROVIDERS: Emergency Provider Emergency Medicine
DX: R20.2 Paresthesia of skin (principal); M25.511 Pain in right shoulder; F17.210 Nicotine dependence, cigarettes, uncomplicated
CPT/HCPCS: 99283

== ENCOUNTER 2020-10-18 11:08 | Emergency (ER) | payer OTHER, SELFPAY ==
[2020-10-18 11:11] VITALS: BP 129/97; PULSE 87; RESP 18; TEMP 35.8; O2SAT 99
--- NOTE | 2020-10-18 11:40 | ED.GENADULT ---
HPI - General Adult General Chief complaint: Extremity Injury, Upper Stated complaint: numbness to hand/chronic Time Seen by Provider: 10/18/20 11:26 Source: patient and family Mode of arrival: ambulatory Limitations: no limitations History of Present Illness HPI narrative: Patient is a 40-year-old female who presents to emergency department for evaluation of right wrist pain with pain radiating to the right hand patient notes aching pain that is mild and nature at times and increases patient denies any other injury or complaint has had this issue long-term has not followed up notes that she has a job requiring repetitive activities Related Data Allergies Allergy/AdvReac Type Severity Reaction Status Date / Time Penicillins Allergy Severe Rash Verified 10/18/20 11:16 Review of Systems Review of Systems: All systems reviewed & are unremarkable except as noted in HPI and below PMFSH Past Medical History Medical History (Updated 10/18/20 @ 11:43 by Steven Cruz PA-C) Anxiety Depression Hepatitis C Surgical History Surgical History History of endometrial ablation History of hysterectomy Hx of cholecystectomy Hx of tubal ligation Family History Family History Father Unknown family medical history Mother , in 2019 from CHF Hypertension Social History Social History Smoking packs per day: 0.5 Smoking cigarettes per day: 10.0 Years smoked: 20 Smoking pack-years: 10.00 Smoking status: Current every day smoker Tobacco type: cigarettes Second hand tobacco smoke exposure: No Alcohol intake: never Substance use: current Substance use type: marijuana Gender identity (if verbalized by the patient): Female Exam Narrative: Exam Narrative: GENERAL: Well-appearing, well-nourished, and in no acute distress. HEAD: Normocephalic, atraumatic. EYES: PERRLA and EOMI. ENT: Nares clear, no rhinorrhea or epistaxis. Mucous membranes moist. EXTREMITIES: Normal range of motion. No edema. Tenderness of the wrist no deformities noted SKIN: Warm, dry, no rash. NEURO: No focal deficits. Alert and oriented x3. Cranial nerves II through XII grossly intact. Neurovascularly intact. Capillary refill less than 2 seconds PSYCH: Normal mood and affect. Course Course Emergency Course: Patient will be referred to orthopedics for reevaluation of what sounds like carpal tunnel Vital Signs Vital signs: Vital Signs Temperature 96.5 F L 10/18/20 11:11 Pulse Rate 87 10/18/20 11:11 Respiratory Rate 18 10/18/20 11:11 Blood Pressure 129/97 H 10/18/20 11:11 Pulse Oximetry 99 10/18/20 11:11 Temperature 96.5 F L 10/18/20 11:11 Pulse Rate 87 10/18/20 11:11 Respiratory Rate 18 10/18/20 11:11 Blood Pressure 129/97 H 10/18/20 11:11 Pulse Oximetry 99 10/18/20 11:11 Medical Decision Making MDM Narrative Medical decision making narrative: Patients injury or pain is consistent with musculoskeletal etiology. No signs of neurological or vascular compromise on exam. Compartments and tisues are soft without signs of compartment syndrome. Pain is felt appropriate for further evaluation on an outpatient basis. Vital Signs Vital Signs: Vital Signs Temperature 96.5 F L 10/18/20 11:11 Pulse Rate 87 10/18/20 11:11 Respiratory Rate 18 10/18/20 11:11 Blood Pressure 129/97 H 10/18/20 11:11 Pulse Oximetry 99 10/18/20 11:11 Temperature 96.5 F L 10/18/20 11:11 Pulse Rate 87 10/18/20 11:11 Respiratory Rate 18 10/18/20 11:11 Blood Pressure 129/97 H 10/18/20 11:11 Pulse Oximetry 99 10/18/20 11:11 Discharge Plan Discharge Clinical Impression: Acute pain of right wrist Patient Disposition: Home, Self-Care Condition: Stable Instructions: Antibiotic Form, Arthralgia (ED) Prescriptions:
== END 2020-10-18 12:13 | disposition home or self-care (01) ==
PROVIDERS: Emergency Provider Emergency Medicine
DX: M25.531 Pain in right wrist (principal); Z86.19 Personal history of other infectious and parasitic diseases; F17.210 Nicotine dependence, cigarettes, uncomplicated
CPT/HCPCS: 99283

== ENCOUNTER 2021-01-09 12:56 | Emergency (ER) | payer OTHER, SELFPAY ==
[2021-01-09 13:03] VITALS: BP 138/86; PULSE 97; RESP 16; TEMP 36.4; O2SAT 98
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
[2021-01-09] MEDS: IBUPROFEN 600 MG TABLET PO (14:39)
[2021-01-09] MEDS: SILVER SULFADIAZINE 1% CR 50 GM JAR (*BKC) 1 APPLIC TOPICAL (14:39)
--- NOTE | 2021-01-09 14:40 | PC.NURSE ---
LATE ENTRY Silvadene cream and dressing applied to right hand.
== END 2021-01-09 14:49 | disposition home or self-care (01) ==
PROVIDERS: Emergency Provider Emergency Medicine
DX: T23.151A Burn of first degree of right palm, initial encounter (principal); T31.0 Burns involving less than 10% of body surface; Z86.2 Personal history of diseases of the blood and blood-forming organs and certain disorders involving the immune mechanism; Z86.19 Personal history of other infectious and parasitic diseases; F17.210 Nicotine dependence, cigarettes, uncomplicated; X10.2XXA Contact with fats and cooking oils, initial encounter; Y93.G3 Activity, cooking and baking
CPT/HCPCS: 16000; 99283; A9270

== ENCOUNTER 2021-04-04 15:18 | Emergency (ER) | payer OTHER, SELFPAY ==
[2021-04-04 15:26] VITALS: BP 114/64; PULSE 73; RESP 18; TEMP 36.4; O2SAT 99
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
== END 2021-04-04 16:29 | disposition home or self-care (01) ==
PROVIDERS: Emergency Provider Nurse Practitioner
DX: H66.001 Acute suppurative otitis media without spontaneous rupture of ear drum, right ear (principal); F17.210 Nicotine dependence, cigarettes, uncomplicated; F41.9 Anxiety disorder, unspecified; F32.9 Major depressive disorder, single episode, unspecified; Z86.19 Personal history of other infectious and parasitic diseases
CPT/HCPCS: 99213; G0463

== ENCOUNTER 2021-04-22 09:56 | Emergency (ER) | payer OTHER, SELFPAY ==
[2021-04-22 10:12] VITALS: BP 156/96; PULSE 77; RESP 16; TEMP 35.8; O2SAT 99
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
== END 2021-04-22 11:23 | disposition home or self-care (01) ==
PROVIDERS: Emergency Provider Nurse Practitioner
DX: J30.9 Allergic rhinitis, unspecified (principal); F41.9 Anxiety disorder, unspecified; F32.9 Major depressive disorder, single episode, unspecified; Z86.19 Personal history of other infectious and parasitic diseases; Z86.2 Personal history of diseases of the blood and blood-forming organs and certain disorders involving the immune mechanism; F17.210 Nicotine dependence, cigarettes, uncomplicated; R03.0 Elevated blood-pressure reading, without diagnosis of hypertension
CPT/HCPCS: 87081; 87880; 99213; G0463

== ENCOUNTER 2021-05-23 07:49 | Emergency (ER) | payer OTHER, SELFPAY ==
[2021-05-23] VITALS (14 sets, daily range): BP systolic 121–161; BP diastolic 83–117; PULSE 53–70; RESP 11–18; TEMP 36.2; O2SAT 93–100
--- NOTE | ~2021-05-23 | XR_ITS ---
EXAMINATION: XR chest 2V DATE: 05/23/2021 08:36 INDICATION: Midline chest pain. Dizziness. TECHNIQUE: Frontal and lateral views of the chest were obtained. COMPARISON: Chest 2 views 01/31/2019, CT abdomen and pelvis 04/15/2020 FINDINGS: The chest demonstrates clear lungs without pneumonia, pleural effusion, or pneumothorax. Th e heart size is normal. Surgical clips in the right upper quadrant are likely from cholecystectomy. IMPRESSION: 1. No acute cardiopulmonary disease. Reviewed, dictated and finalized at location A.
--- NOTE | 2021-05-23 08:04 | ECG_ITS ---
Measurements Intervals [place] Rate: 54 P: 37 [place]: 173 QRS: 44 QRSD: 88 T: 52 QT: 401 QTc: 380 Interpretive Statements SINUS BRADYCARDIA DELAYED PRECORDIAL R/S TRANSITION BASELINE ARTIFACT- II, III, AVF BORDERLINE ECG Electronically Signed On 05-23-2021 12:52:52 CDT by Herman Cardoso D.O.
--- NOTE | 2021-05-23 08:28 | PC.NURSE ---
Patient going to x-ray at this time, unable to obtain blood work or IV prior to patient leaving room.
--- NOTE | 2021-05-23 08:51 | ED.GENADULT ---
HPI - General Adult General Chief complaint: Dizziness Stated complaint: chest pain/tightness Time Seen by Provider: 05/23/21 08:44 Source: patient, family and RN notes reviewed Limitations: no limitations History of Present Illness HPI narrative: Patient is 40 years old white female presents with little dizziness, palpitation, chest tightness, started last night, blood pressure this morning was elevated, patient reports pounds of stress lately, does not take medicine at home, history of anxiety, depression, patient is a smoker, does not drink and uses marijuana almost daily. Blood pressure on arrival was 159/98, right now 128/85. Patient feeling okay at this time. Related Data Allergies Allergy/AdvReac Type Severity Reaction Status Date / Time Penicillins Allergy Severe Rash Verified 05/23/21 08:13 Review of Systems Review of Systems: Narrative: CONSTITUTIONAL: Denies fever, chills, or sweats. EYES: Denies visual changes, redness, or discharge. ENT: Denies rhinorrhea, congestion, sore throat, or otalgia. CARDIOVASCULAR: Denies chest pain, palpitations, or edema. RESPIRATORY: Denies cough or dyspnea. GASTROINTESTINAL: Denies abdominal pain, nausea, vomiting, or diarrhea. GENITOURINARY: Denies dysuria or hematuria. SKIN: Denies rash or itching. MUSCULOSKELETAL: Denies back pain, joint pain, or myalgia. NEUROLOGIC: Denies headache, numbness, or weakness. PSYCHIATRIC: Denies anxiety or depression. [facility] Past Medical History Medical History Anemia Anxiety BMI 38.0-38.9,adult Cardiac arrhythmia Depression Hepatitis Hepatitis C Right carpal tunnel syndrome Surgical History Surgical History History of endometrial ablation History of hysterectomy Hx of cholecystectomy Hx of tubal ligation Family History Family History Father Unknown family medical history Mother , in 2019 from CHF Hypertension Social History Social History Smoking packs per day: 0.5 Smoking cigarettes per day: 10.0 Years smoked: 20 Smoking pack-years: 10.00 Smoking status: Current every day smoker Tobacco type: cigarettes Second hand tobacco smoke exposure: No Alcohol intake: never Substance use: current Substance use type: marijuana Gender identity (if verbalized by the patient): Female Exam Narrative: Exam Narrative: General appearance: Well-developed, well-nourished Skin: Normal color Head: Normocephalic, nontraumatic Eyes: Clear conjunctiva ENT: Oropharynx normal, ears normal, nose normal Neck: Supple, nontender Chest and respiratory: Airway patent, no respiratory distress, no accessory muscle use Heart: Regular rate/rhythm Abdomen: Soft, nontender, no organomegaly, quiet bowel sounds Vascular: Normal peripheral pulses, normal capillary refill. Musculoskeletal: Normal range of motion, nontender back Neurologic: Alert and oriented ?3, [employer]IL [employer] is normal as tested, no gross motor deficit Course Course Emergency Course: Stable, improving Vital Signs Vital signs: Vital Signs Temperature 36.2 C L 05/23/21 07:55 Pulse Rate 70 05/23/21 07:55 Respiratory Rate 16 05/23/21 07:55 Blood Pressure 159/98 H 05/23/21 07:55 Pulse Oximetry 99 05/23/21 07:55 Temperature 36.2 C L 05/23/21 07:55 Pulse Rate 58 L 05/23/21 10:23 Respiratory Rate 18 05/23/21 10:23 Blood Pressure 152/91 H 05/23/21 10:23 Pulse Oximetry 93 05/23/21 10:23 Medical Decision Making MDM Narrative Medical decision making narrati
[2021-05-23 09:33] LABS: Basophils Percent Auto 0.7 % (0.2-1.2); Eosinophils Absolute Auto 0.3 K/mm3 (0-0.3); Eosinophils Percent Auto 4.5 % (0-4.4); Hematocrit 43.6 % (37.0-47.0); Hemoglobin 14.7 g/dL (12.0-15.0); Immature Granulocyte Absolute 0.02 K/mm3 (0.00-0.031); Immature Granulocyte Percent A 0.4 % (0-0.5); Lymphocytes Percent Auto 30.7 % (18.3-44.2); Mean Corpuscular HGB Conc 33.7 g/dl (32-36); Mean Corpuscular Hemoglobin 30.6 pg (26-34); Mean Corpuscular Volume 90.6 fl (80-100); Mean Platelet Volume 9.5 fl (7.4-10.4); Monocytes Absolute Auto 0.4 K/mm3 (0.1-0.6); Monocytes Percent Auto 6.5 % (2.6-8.5); Neutrophils Absolute Auto 3.2 K/mm3 (1.3-6.7); Neutrophils Percent Auto 57.2 % (45.5-73.1); Platelet Count Result 203 k/mm3 (150-375); Red Blood Count 4.81 M/mm3 (4.2-5.4); Red Cell Distribution Width 12.4 % (11.5-14.5); White Blood Count 5.5 K/mm3 (4.5-10.0)
[2021-05-23 09:42] LABS: INR 0.9; Prothrombin Time 11.9 Seconds (11.1-14.7)
[2021-05-23 09:43] LABS: Partial Thromboplastin Time 28.1 SECONDS (22.3-36.8)
[2021-05-23] MEDS: LORazepam INJ (*CRX) 2 MG/ML VIAL 1 MG IV PUSH (09:43)
[2021-05-23 09:45] LABS: Anion Gap 9 mmol/L (8-16); Blood Urea Nitrogen 15 mg/dL (7-17); Calcium 9.7 mg/dL (8.4-10.2); Carbon Dioxide 25 mmol/L (22-30); Chloride 106 mmol/L (98-107); Estimated CRCL calculation 107 ml/min; Estimated Glomerular Filt Rate > 60; Glucose 95 mg/dL (65-105); Sodium 140 mmol/L (137-145)
[2021-05-23 09:57] LABS: Troponin I < 0.012 ng/mL (0.000-0.034)
[2021-05-23 12:02] LABS: Troponin I < 0.012 ng/mL (0.000-0.034)
== END 2021-05-23 12:35 | disposition home or self-care (01) ==
PROVIDERS: Emergency Provider Emergency Medicine
DX: R00.2 Palpitations (principal); F41.9 Anxiety disorder, unspecified; Z86.2 Personal history of diseases of the blood and blood-forming organs and certain disorders involving the immune mechanism; Z86.19 Personal history of other infectious and parasitic diseases; F17.210 Nicotine dependence, cigarettes, uncomplicated; R00.1 Bradycardia, unspecified
CPT/HCPCS: 36415; 71046; 80048; 84443; 84484; 85025; 85610; 85730; 93005; 96374; 99284; J2060

== ENCOUNTER 2021-10-09 17:22 | Emergency (ER) | payer OTHER, SELFPAY ==
--- NOTE | ~2021-10-09 | XR_ITS ---
EXAMINATION: XR finger 4th LT min 2V DATE: 10/09/2021 17:57 INDICATION: Pain and swelling at the left fourth distal interphalangeal joint post injury. TECHNIQUE: Dorsal palmar, lateral and oblique views of the left fourth digit were obtained COMPARISON: None FINDINGS: Alignment is normal. No fracture. Minimal to mild polyarticular osteoarthritis at the visualized inte rphalangeal joints of the third-fifth digits. Soft tissue swelling at the palmar aspect of the fourth distal phalanx. IMPRESSION: 1. No acute osseous abnormality. Reviewed, dictated and finalized at location A. ER HAND
[2021-10-09 17:34] VITALS: BP 167/93; PULSE 66; RESP 16; TEMP 36.5; O2SAT 99
--- NOTE | 2021-10-09 19:38 | ED.UPPEXIN ---
HPI - Extremity Injury (Upper) General Chief Complaint: Extremity Injury, Upper Stated Complaint: L 4TH DIGIT INJURY Time Seen by Provider: 10/09/21 19:31 Source: patient and RN notes reviewed Mode of arrival: ambulatory Limitations: no limitations History of Present Illness HPI narrative: This is a 41 year old female right hand dominant who presents for evaluation of left 4th finger injury. She states her finger accidentally was smashed in her oven door tonight. She has some mild bruising and swelling to her finger so she wanted to make sure it was broken. She is able to move finger without numbness or tingling. 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 Related Data Home Medications Medication Instructions Recorded Confirmed No Home Medications 10/09/21 10/09/21 Allergies Allergy/AdvReac Type Severity Reaction Status Date / Time Penicillins Allergy Severe Rash Verified 10/09/21 19:32 Review of Systems Review of Systems: All systems reviewed & are unremarkable except as noted in HPI and below PMFSH Past Medical History Medical History Anemia Anxiety BMI 38.0-38.9,adult Cardiac arrhythmia Depression Hepatitis Hepatitis C Right carpal tunnel syndrome Surgical History Surgical History History of endometrial ablation History of hysterectomy Hx of cholecystectomy Hx of tubal ligation Family History Family History Father Unknown family medical history Mother , in 2019 from CHF Hypertension Social History Social History Smoking packs per day: 0.5 Smoking cigarettes per day: 10.0 Years smoked: 20 Smoking pack-years: 10.00 Smoking status: Current every day smoker Tobacco type: cigarettes Second hand tobacco smoke exposure: No Alcohol intake: never Substance use: current Substance use type: marijuana Gender identity (if verbalized by the patient): Female Sexual Orientation (if Verbalized by the Patient): Straight or Heterosexual Exam Const: General: no acute distress and alert Orientation/consciousness: patient oriented x3 Resp: Effort & Inspection: normal respiratory effort Neuro: General: patient oriented x3, moves all extremities and CN's II-XI intact bilaterally Extrem: Other: left 4th finger with mild swelling about DIP joint but FROM, no bruising or deformity Psych: Mental Status: mental status grossly normal Affect: normal affect Course Reevaluation(s) Reevaluation #1: I Discussed with patient that xray was negative for fracture. Date: 10/09/21 Time: 19:41 Vital Signs Vital signs: Vital Signs Temperature 97.7 F 10/09/21 17:34 Pulse Rate 66 10/09/21 17:34 Respiratory Rate 16 10/09/21 17:34 Blood Pressure 167/93 H 10/09/21 17:34 Pulse Oximetry 99 10/09/21 17:34 Temperature 97.7 F 10/09/21 17:34 Pulse Rate 66 10/09/21 17:34 Respiratory Rate 16 10/09/21 17:34 Blood Pressure 167/93 H 10/09/21 17:34 Pulse Oximetry 99 10/09/21 17:34 MDM - Extremity Injury (Upper) Imaging Data Radiologist's impression: ITS Impressions Finger X-Ray 10/09/21 18:15 IMPRESSION: 1. No acute osseous abnormality. Discharge Plan Discharge Clinical Impression: Contusion of finger of left hand Qualifiers: Encounter type: initial encounter Finger: ring finger Damage to nail status: without damage Qualified Code(s): S60.042A - Contusion of left ring finger without damage to nail, initial encounter Patient Disposition: Home, Self-Care Condition: Stable Instructions: Antibiotic Form, Jammed Finger (ED) Additional Instructions: Today you were found to have finger contusion. Take medication such as ibuprofen or naproxen for youer pain. Prescriptions: No Action
== END 2021-10-09 19:50 | disposition home or self-care (01) ==
LOC: ANHED 20:01
PROVIDERS: Emergency Provider General Practice
DX: S60.042A Contusion of left ring finger without damage to nail, initial encounter (principal); F17.210 Nicotine dependence, cigarettes, uncomplicated; W23.0XXA Caught, crushed, jammed, or pinched between moving objects, initial encounter
CPT/HCPCS: 73140; 99283

== ENCOUNTER 2022-11-14 21:51 | Emergency (ER) | payer OTHER, SELFPAY ==
[2022-11-14 21:49] VITALS: BP 115/72; PULSE 66; RESP 10; O2SAT 96
--- NOTE | 2022-11-14 21:54 | ECG_ITS ---
Measurements Intervals [place] Rate: 56 P: 41 [place]: 158 QRS: 32 QRSD: 84 T: 50 QT: 414 QTc: 400 Interpretive Statements SINUS BRADYCARDIA WITH SINUS ARRHYTHMIA BORDERLINE ECG COMPARED TO ECG 05/23/2021 08:01:17 SINUS ARRHYTHMIA NOW PRESENT Electronically Signed On 11-17-2022 17:36:27 DIRECTOR OF QUALITY by Juan Brandon M.D.
--- NOTE | 2022-11-14 21:54 | ED.GENADULT ---
HPI - General Adult General Chief complaint: Overdose Stated complaint: FENTANYL OD History of Present Illness HPI narrative: 42-year-old female with history of almost daily fentanyl use presented to the emergency department for evaluation after an accidental fentanyl overdose tonight. Patient states that she used it approximately 1900. EMS was called at 2115. They state they administered 2 mg of intranasal Narcan at 0. Patient had improvement of her mental status. Upon arrival to emergency department patient is alert but somnolent. Patient is saturating at 95% on room air with a respiratory rate of 17. Patient states this was recreational use and not an attempt of self-harm. Patient agreed to stay for evaluation. Related Data Home Medications Medication Instructions Recorded Confirmed clonazepam 0.5 mg tablet mg 11/14/22 Allergies Allergy/AdvReac Type Severity Reaction Status Date / Time Penicillins Allergy Severe Rash Verified 11/14/22 21:58 Review of Systems Review of Systems: CONSTITUTIONAL: Denies fever, chills, or sweats. EYES: Denies visual changes, redness, or discharge. ENT: Denies rhinorrhea, congestion, sore throat, or otalgia. CARDIOVASCULAR: Denies chest pain, palpitations, or edema. RESPIRATORY: Denies cough or dyspnea. GASTROINTESTINAL: Denies abdominal pain, nausea, vomiting, or diarrhea. GENITOURINARY: Denies dysuria or hematuria. SKIN: Denies rash or itching. MUSCULOSKELETAL: Denies back pain, joint pain, or myalgia. NEUROLOGIC: Denies headache, numbness, or weakness. [facility] Past Medical History Medical History Anemia Anxiety BMI 38.0-38.9,adult Cardiac arrhythmia Depression Hepatitis Hepatitis C Right carpal tunnel syndrome Surgical History Surgical History History of endometrial ablation History of hysterectomy Hx of cholecystectomy Hx of tubal ligation Family History Family History Father Unknown family medical history Mother , in 2019 from CHF Hypertension Social History Social History Smoking packs per day: 0.5 Smoking cigarettes per day: 10.0 Years smoked: 20 Smoking pack-years: 10.00 Smoking status: Current every day smoker Tobacco type: cigarettes Second hand tobacco smoke exposure: No Alcohol intake: never Substance use: current Substance use type: marijuana Gender identity (if verbalized by the patient): Female Sexual Orientation (if Verbalized by the Patient): Straight or Heterosexual Exam Narrative: APPEARANCE: Well appearing, no pain, no distress, well-nourished. HEAD: normocephalic, atraumatic. EYES: PERRLA/EOMI, conjunctivae clear. NOSE: Normal no drainage EARS:TMS clear with good light reflex. THROAT: Pharynx clear, no exudate. NECK: Supple. No adenopathy, no masses. RESPIRATORY: Airway patent, respirations nonlabored. Clear to auscultation bilaterally, no rales, rhonchi, wheezing. CARDIOVASCULAR: Regular rate and rhythm without murmurs rubs or gallops. ABDOMINAL: Soft, nontender, nondistended, normal bowel sounds MUSCULOSKELETAL: Moves all extremities. Strength/ROM intact, No edema, No calf tenderness. NEURO: Alert. Cranial nerves II through XII intact. Good gait. Good coordination SKIN: Warm, dry. Normal Color PSYCHIATRIC: Normal affect/mood. Course Course Emergency Course: Patient was observed in the emergency department for greater than 2 hours after the administration of Narcan. Patient has not required any additional Narcan and patient is saturating at 96 to 98% on room air. Patient was encouraged to seek rehab for her opiate addiction. Patient and her significant other are comfortable with this plan. Vital Signs Vital signs: Vital Signs Pulse Rate 66 //22 21:49 Respiratory Rate 10
[2022-11-14 23:31] VITALS: BP 117/81; PULSE 60; RESP 15; O2SAT 96
[2022-11-14 23:46] VITALS: BP 131/90; PULSE 56; RESP 26; O2SAT 97
== END 2022-11-15 01:39 | disposition home or self-care (01) ==
PROVIDERS: Emergency Provider Emergency Medicine
DX: T40.411A Poisoning by fentanyl or fentanyl analogs, accidental (unintentional), initial encounter (principal); F17.210 Nicotine dependence, cigarettes, uncomplicated; F41.8 Other specified anxiety disorders
CPT/HCPCS: 93005; 99281

== ENCOUNTER 2023-04-16 09:03 | Emergency (ER) | payer OTHER, SELFPAY ==
[2023-04-16 09:12] VITALS: BP 143/80; PULSE 70; RESP 12; TEMP 36.6; O2SAT 100
--- NOTE | 2023-04-16 09:30 | ED.DENTAL ---
HPI - Dental/Oral General Chief complaint: Dental/Oral Stated complaint: Swelling to left side of face Time Seen by Provider: 04/16/23 09:30 Source: patient Mode of arrival: ambulatory History of Present Illness HPI Narrative: 42-year-old female presented for complaint of left upper dental pain and mild swelling to left cheek, onset this morning. Endorses history of poor dentition and dental abscesses. States she has had a broken tooth at this site for quite a while, and another piece broke off about a week ago. She has he and ibuprofen which provides temporary relief. Rates pain 5/10. She denies nausea, vomiting, fevers or chills. MD Complaint: tooth pain Related Data Allergies Allergy/AdvReac Type Severity Reaction Status Date / Time Penicillins Allergy Severe Rash Verified 11/14/22 21:58 Review of Systems Review of Systems: CONSTITUTIONAL: Denies body aches, fever, chills ENT: Denies rhinorrhea, congestion, sore throat, or otalgia. Reports dental pain CARDIOVASCULAR: Denies chest pain, palpitations RESPIRATORY: Denies cough or dyspnea. SKIN: Denies rash, itching, or wounds. MUSCULOSKELETAL: Denies myalgia. NEUROLOGIC: Denies headache, numbness, tingling, or weakness. [facility] Past Medical History Medical History Anemia Anxiety BMI 38.0-38.9,adult Cardiac arrhythmia Depression Hepatitis Hepatitis C Right carpal tunnel syndrome Surgical History Surgical History History of endometrial ablation History of hysterectomy Hx of cholecystectomy Hx of tubal ligation Family History Family History Father Unknown family medical history Mother , in 2019 from CHF Hypertension Social History Social History Smoking packs per day: 0.5 Smoking cigarettes per day: 10.0 Years smoked: 20 Smoking pack-years: 10.00 Smoking status: Current every day smoker Tobacco type: cigarettes Second hand tobacco smoke exposure: No Alcohol intake: never Substance use: current Substance use type: marijuana Living arrangements: with family Occupation/Education: occupation Gender identity (if verbalized by the patient): Female Sexual Orientation (if Verbalized by the Patient): Straight or Heterosexual Comments At time of signature, I have reviewed and agree with nursing past medical, surgical, social and family history unless otherwise noted. Please see nursing chart for further information. There is no relevant family history pertinent to the presenting complaint Exam Narrative: GENERAL: Appears well; anxious, no acute distress. HEAD: Normocephalic, atraumatic. EYES: EOMI. No redness or drainage. Conjunctivae normal. ENT: Dental pain location of #12, broken tooth, tenderness to gum with mild erythema, no drainage; poor dentition throughout with multiple caries and broken teeth; Mucous membranes pink and moist. TMs normal bilaterally. Throat normal. Uvula midline. NECK: Normal AROM. No lymphadenopathy or induration CHEST: Clear to auscultation. HEART: Regular rate and rhythm. No murmur appreciated. SKIN: Warm, dry, no rash. Normal skin turgor. NEURO: No focal deficits. Alert and oriented x3. Gait steady. Course Course Emergency Course: Patient is aware of diagnosis, understands and agrees to treatment plan. Anticipatory guidance given. Patient agrees to follow-up as directed and is aware of reasons to seek care at the emergency department. Portions of this record may have been created with voice recognition software Level of Care: Express Care Visit Vital Signs Vital signs: Vital Signs Temperature 97.9 F 04/16/23 09:12 Pulse Rate 70 04/16/23 09:12 Respiratory Rate 12 04/16/23 09:12 Blood Pressure 143/80 H 04/16/23 09:12 Pulse
== END 2023-04-16 09:42 | disposition home or self-care (01) ==
PROVIDERS: Emergency Provider Nurse Practitioner Family
DX: K04.7 Periapical abscess without sinus (principal); F17.210 Nicotine dependence, cigarettes, uncomplicated; F12.90 Cannabis use, unspecified, uncomplicated
CPT/HCPCS: 99213; G0463

== ENCOUNTER 2023-05-29 09:31 | Emergency (ER) | payer OTHER, SELFPAY ==
[2023-05-29] VITALS (11 sets, daily range): BP systolic 123–153; BP diastolic 84–102; PULSE 57–91; RESP 13–19; TEMP 35.9; O2SAT 95–100
--- NOTE | ~2023-05-29 | CT_ITS ---
EXAMINATION: CT cervical spine wo con DATE: 05/29/2023 10:58 INDICATION: Head injury. TECHNIQUE: Computed tomography (CT) of the cervical spine was performed without intravenous contrast. Automated exposure control and iterative reconstruction technique were employed. The dose-length pro duct was 386.29 mGy-cm. COMPARISON: None FINDINGS: There is 3 degrees dextrocurvature of cervical spine. Vertebral body heights are normal. Th ere is mildly decreased disc height at C5-C6 and C6-C7. The following disc levels are specifically di scussed: C2-C3: There is mild bilateral uncovertebral joint osteoarthritis. There is no facet joint osteoarthr itis. There is no neural foraminal stenosis. There is no central canal stenosis. C3-C4: There is mild left uncovertebral joint osteoarthritis. There is moderate right and mild left f acet joint osteoarthritis. There is mild left neural foraminal stenosis. There is mild central canal stenosis. C4-C5: There is mild left uncovertebral joint osteoarthritis. There is mild bilateral facet joint ost eoarthritis. There is mild left neural foraminal stenosis. There is mild central canal stenosis. C5-C6: There is mild bilateral uncovertebral joint osteoarthritis. There is mild bilateral facet join t osteoarthritis. There is no neural foraminal stenosis. There is mild central canal stenosis. C6-C7: There is severe left uncovertebral joint osteoarthritis. There is mild left facet joint osteoa rthritis. There is mild left neural foraminal stenosis. There is mild central canal stenosis. C7-T1: There is no uncovertebral joint osteoarthritis. There is mild bilateral facet joint osteoarthr itis. There is no neural foraminal stenosis. There is no central canal stenosis. IMPRESSION: 1. No fracture. 2. Mild cervical spondylosis. Reviewed, dictated and finalized at location A.
--- NOTE | ~2023-05-29 | CT_ITS ---
EXAMINATION: CT brain wo con DATE: 05/29/2023 10:58 INDICATION: Headache. TECHNIQUE: Computed tomography (CT) of the head was performed without intravenous contrast. The mA wa s adjusted according to patient size. Iterative reconstruction technique was employed. The dose-lengt h product was 605.33 mGy-cm. COMPARISON: None FINDINGS: There is no intracranial hemorrhage, acute infarction, or abnormal intracranial mass lesion . The ventricles are normal in size. The paranasal sinuses are clear. The mastoid air cells are loren l. The orbits are normal. IMPRESSION: 1. Normal brain. Reviewed, dictated and finalized at location A. IMPRESSION: 1. Normal brain.
--- NOTE | ~2023-05-29 | CT_ITS ---
EXAMINATION: CT chst ab pel thor lum w DATE: 05/29/2023 10:58 INDICATION: Chest and abdominal injury. Falls. TECHNIQUE: Computed tomography (CT) of the chest, abdomen, pelvis, thoracic spine, and lumbar spine w as performed without intravenous contrast. Automated exposure control and iterative reconstruction te chnique were employed. The dose-length product was 1244.07 mGy-cm. COMPARISON: CT abdomen and pelvis 04/15/2020 FINDINGS: CT CHEST: There is mild atelectasis bilaterally. A calcified left lung nodule is consistent with old granulomatous disease. No pleural effusion. The heart size is normal. No pericardial effusion. There is no rib fracture. CT ABDOMEN AND PELVIS: There is focal steatosis in the liver at the gallbladder fossa. There are blair ges of cholecystectomy. There is a 6 mm cyst in the spleen. The pancreas, adrenal glands, and right k idney are normal. 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 Ther e are no dilated loops of bowel. The appendix is normal. Aortic atherosclerosis is noted. There are n o pathologically enlarged lymph nodes. There is no free intraperitoneal fluid. CT THORACIC SPINE: There is 6 degrees levocurvature of upper thoracic spine. There is 7 degrees dextr ocurvature of lower thoracic spine. There is mild chronic anterior wedging of T5-T11 vertebral bodies . There is mildly decreased disc height at most levels. There is multilevel mild facet joint osteoart hritis. There is no neural foraminal stenosis. There is mild central canal stenosis at T6-T7 and T7-T 8. CT LUMBAR SPINE: Bone alignment is normal. Vertebral body heights are normal. There is mildly decreas ed disc height at L4-L5. The following disc levels are specifically discussed: L1-L2: The disc does not extend beyond the endplate margin. There is moderate bilateral facet joint o steoarthritis. There is no neural foraminal stenosis. There is no central canal stenosis. L2-L3: The disc does not extend beyond the endplate margin. There is mild bilateral facet joint osteo arthritis. There is no neural foraminal stenosis. There is no central canal stenosis. L3-L4: There is a left foraminal protrusion. There is mild bilateral facet joint osteoarthritis. Ther e is mild left neural foraminal stenosis. There is no central canal stenosis. L4-L5: The disc is bulging. There is severe bilateral facet joint osteoarthritis. There is mild bilat eral neural foraminal stenosis. There is mild central canal stenosis. L5-S1: The disc does not extend beyond the endplate margin. There is severe bilateral facet joint ost eoarthritis. There is mild bilateral neural foraminal stenosis. There is no central canal stenosis. IMPRESSION: 1. No posttraumatic findings. 2. Mild thoracic and lumbar spondylosis. Reviewed, dictated and finalized at location A.
--- NOTE | 2023-05-29 09:42 | ECG_ITS ---
Measurements Intervals [place] Rate: 66 P: 30 [place]: 138 QRS: 69 QRSD: 89 T: 48 QT: 406 QTc: 428 Interpretive Statements SINUS RHYTHM NORMAL ECG COMPARED TO ECG 11/14/2022 21:54:43 SINUS RHYTHM NOW PRESENT Electronically Signed On 05-29-2023 16:33:38 CDT by Herman Cardoso D.O.
[2023-05-29 10:01] LABS: Basophils Percent Auto 0.7 % (0.2-1.2); Eosinophils Percent Auto 0.7 % (0-4.4); Hematocrit 44.8 % (37.0-47.0); Hemoglobin 15.6 g/dL (12.0-15.0); Immature Granulocyte Absolute 0.03 K/mm3 (0.00-0.031); Immature Granulocyte Percent A 0.5 % (0-0.5); Lymphocytes Absolute Auto 1.54 K/mm3 (0.9-3.2); Lymphocytes Percent Auto 25.5 % (18.3-44.2); Mean Corpuscular HGB Conc 34.8 g/dl (32-36); Mean Corpuscular Hemoglobin 30.5 pg (26-34); Mean Corpuscular Volume 87.7 fl (80-100); Mean Platelet Volume 10.2 fl (7.4-10.4); Monocytes Absolute Auto 0.6 K/mm3 (0.1-0.6); Monocytes Percent Auto 9.1 % (2.6-8.5); Neutrophils Absolute Auto 3.8 K/mm3 (1.3-6.7); Neutrophils Percent Auto 63.5 % (45.5-73.1); Platelet Count Result 319 k/mm3 (150-375); Red Blood Count 5.11 M/mm3 (4.2-5.4); Red Cell Distribution Width 12.3 % (11.5-14.5)
[2023-05-29 10:20] LABS: Alanine Aminotransferase 24 U/L (6-35); Alkaline Phosphatase 75 U/L (38-126); Anion Gap 11 mmol/L (8-16); Aspartate Amino Transferase 26 U/L (14-36); Bilirubin,Total 0.8 mg/dL (0.2-1.3); Blood Urea Nitrogen 11 mg/dL (7-17); Calcium 10.1 mg/dL (8.4-10.2); Carbon Dioxide 29 mmol/L (22-30); Chloride 97 mmol/L (98-107); Estimated CRCL calculation 82 ml/min; Estimated Glomerular Filt Rate > 60; Glucose 118 mg/dL (65-110); Potassium 3.6 mmol/L (3.4-5.0); Sodium 137 mmol/L (137-145)
--- NOTE | 2023-05-29 10:21 | ED.SYNCOPE ---
HPI - Syncope General Chief Complaint: Syncope Stated Complaint: syncope after using Xanax bar Time Seen by Provider: 05/29/23 09:56 History of Present Illness HPI narrative: Patient is a 42-year-old female presenting with multiple falls. Patient states that she relapsed on IV meth approximately 3 days ago. States that approximately 12 hours after using meth she took a Xanax bar to help her calm down. States that she was in the shower and she passed out striking her head. States that she was able to crawl to her shower to take a nap where her friends found her. States that for the last day and a half she has had a headache as well as persistent nausea. States she is concerned for a head injury. States that she also has a bunch of bruises around her back. She denies chest pain or difficulty breathing, numbness or weakness, abdominal pain, vomiting, extremity injuries. Related Data Allergies Allergy/AdvReac Type Severity Reaction Status Date / Time Penicillins Allergy Severe Rash Verified 05/29/23 09:38 Review of Systems Review of Systems: All systems reviewed & are unremarkable except as noted in HPI and below PMFSH Past Medical History Medical History Anemia Anxiety BMI 38.0-38.9,adult Cardiac arrhythmia Depression Hepatitis Hepatitis C Right carpal tunnel syndrome Surgical History Surgical History History of endometrial ablation History of hysterectomy Hx of cholecystectomy Hx of tubal ligation Family History Family History Father Unknown family medical history Mother , in 2019 from CHF Hypertension Social History Social History Smoking packs per day: 0.5 Smoking cigarettes per day: 10.0 Years smoked: 20 Smoking pack-years: 10.00 Smoking status: Current every day smoker Tobacco type: cigarettes Second hand tobacco smoke exposure: No Alcohol intake: never Substance use: current Substance use type: marijuana Living arrangements: with family Occupation/Education: occupation Gender identity (if verbalized by the patient): Female Sexual Orientation (if Verbalized by the Patient): Straight or Heterosexual Exam Narrative: GENERAL: Well-appearing, well-nourished, and in no acute distress. Pleasant and cooperative HEAD: Normocephalic, multiple ecchymoses across forehead in various stages of healing EYES: PERRLA and EOMI. ENT: Nares clear, no rhinorrhea or epistaxis. Mucous membranes moist. NECK: Supple. CHEST: Clear to auscultation. No respiratory distress. Ecchymoses over posterior right ribs HEART: Regular rate and rhythm. ABDOMEN: Soft, nontender, nondistended EXTREMITIES: Normal range of motion. No edema. SKIN: Warm, dry, no rash. NEURO: No focal deficits. Alert and oriented x3. PSYCH: Normal mood and affect. Course Vital Signs Vital signs: Vital Signs Temperature 96.7 F L 05/29/23 09:35 Pulse Rate 81 05/29/23 09:35 Respiratory Rate 16 05/29/23 09:35 Blood Pressure 153/102 H 05/29/23 09:35 Pulse Oximetry 100 05/29/23 09:35 Oxygen Delivery Room Air 05/29/23 09:35 Temperature 96.7 F L 05/29/23 09:35 Pulse Rate 65 05/29/23 12:57 Respiratory Rate 18 05/29/23 12:57 Blood Pressure 126/84 05/29/23 12:57 Pulse Oximetry 100 05/29/23 12:57 Oxygen Delivery Room Air 05/29/23 09:35 MDM - Syncope MDM Narrative Medical decision making narrative: Patient is a 42-year-old female presenting with headache and nausea in the setting of a syncopal episode several days ago. Patient is a bit hypertensive, otherwise vitals are within normal limits. EKG per my interpretation shows normal sinus rhythm, normal axis and intervals, no ST elevations or depressions. Blood work is unremarkable. Troponin
[2023-05-29] MEDS: SODIUM CHLORIDE 0.9% IV 1,000 ML 999 ML IV CONT (10:31)
[2023-05-29] MEDS: ONDANSETRON INJ 4 MG/2 ML VIAL IV PUSH (10:31)
[2023-05-29] MEDS: LORazepam INJ (*CRX) 2 MG/ML VIAL 0.5 MG IV PUSH (10:31)
[2023-05-29 10:54] LABS: Lipase 28 U/L (23-300)
[2023-05-29 11:07] LABS: Troponin I < 0.012 ng/mL (0.000-0.034)
[2023-05-29 11:11] LABS: Appearance Urine Cloudy (Clear); Bacteria Urine None Seen /hpf; Bilirubin Urine Negative (Negative); Blood Urine Negative (Negative); Color Urine Yellow (Yellow); Glucose Urine UA Negative (Negative); Ketones Urine 2+ mg/dL (Negative); Leukocyte Esterase Ur Trace LEU/UL (Negative); Nitrate Urine Negative (Negative); Non Pathogenic Casts 0-2; Protein Urine Negative (Negative); RBC Urine 0-2 /hpf (0-2); Specific Grav Ur 1.015 (1.001-1.035); Squamous Epithelial Cell Urine None seen /hpf (Few); Urobilinogen Urine 0.2 mg/dL (<2.0); pH Urine 7.5 (5.0-9.0)
[2023-05-29 11:15] LABS: Add Urine Microscopic? YES
[2023-05-29 11:28] LABS: Barbiturate Screen Urine Negative (Negative); Benzodiazepines Screen Urine Positive (Negative)
[2023-05-29 11:29] LABS: Cannabinoid Screen Urine Positive (Negative); Cocaine Screen Urine Negative (Negative); Methadone Screen Urine Negative (Negative); Opiate Screen Urine Negative (Negative); Phencyclidine Screen Urine Negative (Negative)
[2023-05-29 12:35] LABS: Amphetamine Screen Urine Positive (Negative)
== END 2023-05-29 13:10 | disposition home or self-care (01) ==
PROVIDERS: Emergency Provider Emergency Medicine
DX: S09.90XA Unspecified injury of head, initial encounter (principal); F19.90 Other psychoactive substance use, unspecified, uncomplicated; S20.229A Contusion of unspecified back wall of thorax, initial encounter; F17.210 Nicotine dependence, cigarettes, uncomplicated; W18.2XXA Fall in (into) shower or empty bathtub, initial encounter
CPT/HCPCS: 36415; 70450; 71260; 72125; 72129; 72132; 74177; 80053; 80307; 81001; 81025; 83690; 84484; 85025; 87086; 93005; 96361; 96374; 96375; 99284; J2060; J2405; J7030; Q9967

== ENCOUNTER 2023-07-22 08:59 | Emergency (ER) | payer OTHER, SELFPAY ==
[2023-07-22 09:15] VITALS: BP 142/93; PULSE 66; RESP 12; TEMP 36.4; O2SAT 100
--- NOTE | 2023-07-22 10:01 | ED.DENTAL ---
HPI - Dental/Oral General Chief complaint: Dental/Oral Stated complaint: tooth pain right side Time Seen by Provider: 07/22/23 10:01 Source: patient, RN notes reviewed and old records reviewed Mode of arrival: ambulatory Limitations: no limitations History of Present Illness HPI Narrative: 42-year-old female who presents to [facility] with complaints of dental pain to right lower back molar which broke about 1 week ago with pain starting for the last 2 days.Patient reports that she has a dentist but has not yet called for appointment wanted antibiotic before she calls. Patient has no facial swelling, no trismus or any difficulty with swallowing or with her breathing. MD Complaint: tooth pain Location: Tooth # (30) Onset (ago): day(s) (2) Severity: moderate Severity scale (1-10): 5 Context: history of dental caries and poor dental care Treatment prior to arrival: oral analgesic Related Data Allergies Allergy/AdvReac Type Severity Reaction Status Date / Time Penicillins Allergy Severe Rash Verified 07/22/23 09:41 Review of Systems Review of Systems: CONSTITUTIONAL: Denies fever, chills, or sweats. ENT: Denies rhinorrhea, congestion, sore throat, or otalgia. Reports dental pain #30 tooth CARDIOVASCULAR: Denies chest pain, palpitations, or edema. RESPIRATORY: Denies cough or dyspnea. SKIN: Denies rash or itching. MUSCULOSKELETAL: Denies myalgia. NEUROLOGIC: Denies headache All systems reviewed & are unremarkable except as noted in HPI and below PMFSH Past Medical History Medical History Anemia Anxiety BMI 38.0-38.9,adult Cardiac arrhythmia Depression Hepatitis Hepatitis C Right carpal tunnel syndrome Surgical History Surgical History History of endometrial ablation History of hysterectomy Hx of cholecystectomy Hx of tubal ligation Family History Family History Father Unknown family medical history Mother , in 2019 from CHF Hypertension Social History Social History Smoking packs per day: 0.5 Smoking cigarettes per day: 10.0 Years smoked: 20 Smoking pack-years: 10.00 Smoking status: Current every day smoker Tobacco type: cigarettes Second hand tobacco smoke exposure: No Alcohol intake: never Substance use: current Substance use type: marijuana Living arrangements: with family Occupation/Education: occupation Gender identity (if verbalized by the patient): Female Sexual Orientation (if Verbalized by the Patient): Straight or Heterosexual Comments At time of signature, agree with nursing past medical, surgical, social and family history. There is no relevant family history pertinent to the presenting complaint Exam Narrative: GENERAL: Well-appearing, well-nourished, and in no acute distress. HEAD: Normocephalic, atraumatic. EYES: PERRLA and EOMI. ENT: Nares clear, no rhinorrhea or epistaxis. Mucous membranes moist. Missing teeth, broken teeth, caries, broken tooth #30 with dentalgia, no trismus or any Dane angina noted. NECK: Supple. no lymphadenopathy CHEST: Clear to auscultation. No respiratory distress.SAO2 100% on room air HEART: Regular rate and rhythm. No murmur heard. Normal peripheral pulses. SKIN: Warm, dry, no rash. NEURO: No focal deficits. Alert and oriented x3. Course Course Emergency Course: Patient is aware of diagnosis, understands and agrees to treatment plan. Anticipatory guidance given. Patient agrees to follow-up as directed and is aware of reasons to seek care at the emergency department. Portions of this record may have been created with voice recognition software Level of Care: Express Care Visit Vital Signs Vital signs: Vital Signs Temperature 36.4 C 07/22/23 09:15 Pulse Rate 66 07/22/23
== END 2023-07-22 10:13 | disposition home or self-care (01) ==
PROVIDERS: Emergency Provider Registered Nurse
DX: K08.89 Other specified disorders of teeth and supporting structures (principal); F17.210 Nicotine dependence, cigarettes, uncomplicated; F12.90 Cannabis use, unspecified, uncomplicated
CPT/HCPCS: 99213; G0463

== ENCOUNTER 2023-09-18 14:16 | Emergency (ER) | payer OTHER, SELFPAY ==
[2023-09-18 14:24] VITALS: BP 102/61; PULSE 69; RESP 14; TEMP 36.4; O2SAT 100
--- NOTE | 2023-09-18 14:42 | ED.DENTAL ---
HPI - Dental/Oral General Chief complaint: Dental/Oral Stated complaint: right tooth pain Time Seen by Provider: 09/18/23 14:37 Source: patient, RN notes reviewed and old records reviewed Mode of arrival: ambulatory Limitations: no limitations History of Present Illness HPI Narrative: Patient presents today complaining of right lower dental pain x2 days. Patient has had this broken tooth for several months and had an appointment this month to get in to have it taking care of, but the dentist cancel old since patient believes it is infected. She needs to get started on antibiotics so she can make another appointment. Currently rates her pain 05/01 and has been taking ibuprofen and rinsing with salt water with some relief. Denies fever, shortness of breath. Related Data Allergies Allergy/AdvReac Type Severity Reaction Status Date / Time Penicillins Allergy Severe Rash Verified 09/18/23 14:24 Review of Systems Review of Systems: CONSTITUTIONAL: Denies body aches, fever, chills, or sweats. EYES: Denies visual changes, redness, or discharge. ENT: Denies rhinorrhea, congestion, sore throat, or otalgia.+ tooth pain CARDIOVASCULAR: Denies chest pain, palpitations, or edema. RESPIRATORY: Denies cough or dyspnea. GASTROINTESTINAL: Denies abdominal pain, nausea, vomiting, or diarrhea. GENITOURINARY: Denies dysuria or hematuria. SKIN: Denies rash, itching, or wounds. MUSCULOSKELETAL: Denies back pain, joint pain, or myalgia. NEUROLOGIC: Denies headache, numbness, tingling, or weakness. PSYCH: Denies depression or anxiety. [facility] Past Medical History Medical History Anemia Anxiety BMI 38.0-38.9,adult Cardiac arrhythmia Depression Hepatitis Hepatitis C Right carpal tunnel syndrome Surgical History Surgical History History of endometrial ablation History of hysterectomy Hx of cholecystectomy Hx of tubal ligation Family History Family History Father Unknown family medical history Mother , in 2019 from CHF Hypertension Social History Social History Smoking packs per day: 0.5 Smoking cigarettes per day: 10.0 Years smoked: 20 Smoking pack-years: 10.00 Smoking status: Current every day smoker Tobacco type: cigarettes Second hand tobacco smoke exposure: No Alcohol intake: never Substance use: current Substance use type: marijuana Living arrangements: with family Occupation/Education: occupation Gender identity (if verbalized by the patient): Female Sexual Orientation (if Verbalized by the Patient): Straight or Heterosexual Comments At time of signature, I have reviewed and agree with nursing past medical, surgical, social and family history unless otherwise noted. Please see nursing chart for further information. There is no relevant family history pertinent to the presenting complaint Exam Narrative: GENERAL: Well-appearing, well-nourished, and in no acute distress. HEAD: Normocephalic, atraumatic. EYES: EOMI. No redness or drainage. Conjunctivae normal. ENT: Mucous membranes pink and moist. Tooth #30 is missing the anterior third of the tooth. No surrounding erythema or edema of the gumline. No obvious periapical abscess noted. Lower jaws tender to palpation. No trismus. NECK: Normal AROM. CHEST: No respiratory distress. EXTREMITIES: Normal range of motion. No edema. SKIN: Warm, dry, no rash. Capillary refill normal. Normal skin turgor. NEURO: No focal deficits. Alert and oriented x3. Gait steady. PSYCH: Normal affect. No signs of depression or anxiety. Course Course Level of Care: Express Care Visit Vital Signs Vital signs: Vital Signs Temperature 97.6 F 09/18/23 14:24 Pulse Rate 69 09/18/23 14:24
== END 2023-09-18 14:49 | disposition home or self-care (01) ==
PROVIDERS: Emergency Provider Nurse Practitioner
DX: K08.89 Other specified disorders of teeth and supporting structures (principal); F17.210 Nicotine dependence, cigarettes, uncomplicated; F12.90 Cannabis use, unspecified, uncomplicated
CPT/HCPCS: 99213; G0463

== ENCOUNTER 2024-03-03 09:37 | Emergency (ER) | payer OTHER, SELFPAY ==
[2024-03-03 09:45] VITALS: BP 121/87; PULSE 120; RESP 16; TEMP 36.3; O2SAT 100
--- NOTE | 2024-03-03 09:56 | ED.DENTAL ---
HPI - Dental/Oral General Chief complaint: Dental/Oral Stated complaint: Dental Pain Time Seen by Provider: 03/03/24 09:56 Source: patient Mode of arrival: ambulatory Limitations: no limitations History of Present Illness HPI Narrative: 43-year-old female presents with complaint of pain to right lower mouth. Patient reports that her gums are swelling and are red. Is post to get several teeth removed next week but is afraid she is going to have infection and they will not pull them. Was told by her dentist to come to urgent care for an antibiotic. No other complaints today. All systems reviewed and negative except as noted above. Related Data Allergies Allergy/AdvReac Type Severity Reaction Status Date / Time Penicillins Allergy Severe Rash Verified 03/03/24 09:43 Review of Systems Review of Systems: CONSTITUTIONAL: Denies fever, chills, or sweats. EYES: Denies visual changes, redness, or discharge. ENT: Denies rhinorrhea, congestion, sore throat, or otalgia. Reports right lower dental pain with swelling and redness to gums. CARDIOVASCULAR: Denies chest pain, palpitations, or edema. RESPIRATORY: Denies cough or dyspnea. GASTROINTESTINAL: Denies abdominal pain, nausea, vomiting, or diarrhea. GENITOURINARY: Denies dysuria or hematuria. SKIN: Denies rash or itching. MUSCULOSKELETAL: Denies back pain, joint pain, or myalgia. NEUROLOGIC: Denies headache, numbness, or weakness. PSYCHIATRIC: Denies anxiety or depression. All other systems reviewed are negative, except as documented in HPI. [facility] Past Medical History Medical History Anemia Anxiety BMI 38.0-38.9,adult Cardiac arrhythmia Depression Hepatitis Hepatitis C Right carpal tunnel syndrome Surgical History Surgical History History of endometrial ablation History of hysterectomy Hx of cholecystectomy Hx of tubal ligation Family History Family History Father Unknown family medical history Mother , in 2019 from CHF Hypertension Social History Social History Smoking packs per day: 0.5 Smoking cigarettes per day: 10.0 Years smoked: 20 Smoking pack-years: 10.00 Smoking status: Current every day smoker Tobacco type: cigarettes Second hand tobacco smoke exposure: No Alcohol intake: never Substance use: current Substance use type: marijuana Living arrangements: with family Occupation/Education: occupation Gender identity (if verbalized by the patient): Female Sexual Orientation (if Verbalized by the Patient): Straight or Heterosexual Comments At time of signature, agree with nursing past medical, surgical, social and family history. There is no relevant family history pertinent to the presenting complaint. Exam Narrative: GENERAL: This is a well-nourished, well-developed patient, in no apparent distress. HEAD: normocephalic, atraumatic. EYES: PERRL. Sclera clear/white. Vision is grossly intact. EARS: External ears normal NOSE: External nose normal MOUTH: redness and swelling to gums near tooth # 27,28,29. no fluctuance concerning for abscess. teeth are decayed and broken. NECK: Neck supple, non-tender without lymphadenopathy, masses or thyromegaly. CARDIOVASCULAR: Regular rate and rhythm without murmurs, gallops, or rubs. RESPIRATORY: Clear to auscultation. Breath sounds equal bilaterally. No wheezes, rales, or rhonchi. SKIN: warm, Dry, intact with no suspicious lesions or rash, good texture and turgor. NEURO: awake, alert, and oriented to person, place and time. There were no obvious focal neurologic abnormalities. EXTREMITIES: No joint tenderness, effusion, or edema noted. Course Course Level of Care: Express Care Visit Vital Signs Vital signs:
== END 2024-03-03 10:05 | disposition home or self-care (01) ==
PROVIDERS: Emergency Provider Nurse Practitioner Family
DX: K04.7 Periapical abscess without sinus (principal)
CPT/HCPCS: 99213; G0463

== ENCOUNTER 2024-06-19 12:39 | Emergency (ER) | payer OTHER, SELFPAY ==
[2024-06-19 12:42] VITALS: BP 112/56; PULSE 78; RESP 16; TEMP 36.8; O2SAT 96
--- NOTE | 2024-06-19 13:28 | ED.FEMALEGU ---
HPI - Female Genitourinary General Chief complaint: Urogenital-Female Stated complaint: STD real bad Time Seen by Provider: 06/19/24 12:46 Source: patient Mode of arrival: ambulatory Limitations: no limitations History of Present Illness HPI Narrative: Patient is a 43 y/o female, with pmh of hysterectomy, who presents to the ED with concern for STD. Patient reports having genital lesions and vaginal pain over the last few weeks. She also reports abnormal vaginal discharge. She is concerned for STD. Denies known exposure. Reports hx of chlamydia at age 18, no other previous STDs. Reports last sexual encounter was over 1 month ago. She does also report ulcers in her lower gumline the last 1 week. Denies recent oral sex or oral sex with initial encounter 1 month ago. Denies fevers, abnormal vaginal bleeding. Denies abdominal pain, dysuria, hematuria. Related Data Allergies Allergy/AdvReac Type Severity Reaction Status Date / Time Penicillins Allergy Severe Rash Verified 03/03/24 09:43 Review of Systems Review of Systems: CONSTITUTIONAL: Denies fever, chills, or sweats. ENT: See HPI GASTROINTESTINAL: Denies abdominal pain, nausea, vomiting, or diarrhea. GENITOURINARY: See HPI. All systems reviewed & are unremarkable except as noted in HPI and below PMFSH Past Medical History Medical History Anemia Anxiety BMI 38.0-38.9,adult Cardiac arrhythmia Depression Hepatitis Hepatitis C Right carpal tunnel syndrome Surgical History Surgical History History of endometrial ablation History of hysterectomy Hx of cholecystectomy Hx of tubal ligation Family History Family History Father Unknown family medical history Mother , in 2019 from CHF Hypertension Social History Social History Smoking packs per day: 0.5 Smoking cigarettes per day: 10.0 Years smoked: 20 Smoking pack-years: 10.00 Smoking status: Current every day smoker Tobacco type: cigarettes Second hand tobacco smoke exposure: No Alcohol intake: never Substance use: current Substance use type: marijuana Living arrangements: with family Occupation/Education: occupation Gender identity (if verbalized by the patient): Female Sexual Orientation (if Verbalized by the Patient): Straight or Heterosexual Exam Narrative: GENERAL: Well appearing, obese with BMI of 31.6, non-toxic, in no acute distress. HEAD: Normocephalic, atraumatic. ENT: Two small well circumscribed aphthous ulcers to L lower gumline, no vesicular formation. No posterior pharynx erythema. No tonsillar hypertrophy or exudate. Uvula nonedematous and midline. RESPIRATORY: Airway patent, respirations nonlabored. CARDIOVASCULAR: Regular rate and rhythm PELVIC: Labia minora and majora with scattered ulcerated lesions in various stages of healing. Left labia minora with several active ulcerations with erythematous bases. Area of erythema/healed ulcerations to right lower perineum. Speculum exam with minimal white discharge, no bleeding. No internal lesions noted. Status post hysterectomy. MUSCULOSKELETAL: Moves all extremities. No gross deformities. SKIN: Warm, dry, normal color. NEURO: A&O X3. Speech clear. PSYCHIATRIC: Appropriate mood and affect. Normal interaction. Course Vital Signs Vital signs: Vital Signs Temperature 98.2 F 06/19/24 12:42 Pulse Rate 78 06/19/24 12:42 Respiratory Rate 16 06/19/24 12:42 Blood Pressure 112/56 L 06/19/24 12:42 Pulse Oximetry 96 06/19/24 12:42 Oxygen Delivery Room Air 06/19/24 12:42 Temperature 98.2 F 06/19/24 12:42 Pulse Rate 78 06/19/24 12:42 Respiratory Rate 16 06/19/24 12:42 Blood Pressure 112/56 L 06/19/24 12:42 Pulse Oximetry
[2024-06-19 13:38] LABS: Appearance Urine Clear (Clear); Bacteria Urine None Seen /hpf; Bilirubin Urine Negative (Negative); Blood Urine Negative (Negative); Color Urine Yellow (Yellow); Glucose Urine UA Negative (Negative); Ketones Urine Negative (Negative); Leukocyte Esterase Ur 1+ LEU/UL (Negative); Nitrate Urine Negative (Negative); Non Pathogenic Casts 0-2; Protein Urine Negative (Negative); RBC Urine 0-2 /hpf (0-2); Specific Grav Ur 1.019 (1.001-1.035); Squamous Epithelial Cell Urine None Seen /hpf (Few); Urobilinogen Urine 0.2 mg/dL (<2.0); pH Urine 5.5 (5.0-9.0)
[2024-06-19] MEDS: valACYclovir HCL 500 MG TABLET 1000 MG PO (13:41)
[2024-06-19 13:44] LABS: Add Urine Microscopic? YES
[2024-06-19 14:43] LABS: Trichomonas Vag PCR NOT DETECTED (NOT DETECTE)
[2024-06-19 15:07] LABS: Chlamydia trachomatis NOT DETECTED (NOT DETECTE); Neisseria gonorrhoeae PCR NOT DETECTED (NOT DETECTE)
[2024-06-22 04:49] LABS: Source GENITAL LESIONS
== END 2024-06-19 15:32 | disposition home or self-care (01) ==
PROVIDERS: Emergency Provider Physician Assistant
DX: A60.04 Herpesviral vulvovaginitis (principal); K12.0 Recurrent oral aphthae; F17.210 Nicotine dependence, cigarettes, uncomplicated; D64.9 Anemia, unspecified; F41.9 Anxiety disorder, unspecified; F32.A Depression, unspecified
CPT/HCPCS: 81001; 87081; 87086; 87088; 87255; 87491; 87591; 87661; 99284; A9270

== ENCOUNTER 2025-05-01 11:30 | Emergency (ER) | payer OTHER, SELFPAY ==
--- NOTE | ~2025-05-01 | XR_ITS ---
EXAMINATION: XR chest 1V portable DATE: 05/01/2025 13:58 INDICATION: Lower extremity edema TECHNIQUE: frontal view of the chest was obtained. COMPARISON: Chest radiograph dated 05/23/2021 FINDINGS: The lungs remain clear with no focal airspace opacities, pulmonary edema, pleural effusion or pneumot horax. The cardiomediastinal silhouette is normal. Cholecystectomy clips in right upper quadrant. Mil d thoracic dextrocurvature. IMPRESSION: 1. No acute cardiopulmonary disease. Reviewed, dictated and finalized at location A.
[2025-05-01 11:32] VITALS: BP 130/74; PULSE 81; RESP 16; TEMP 36.4; O2SAT 97
--- OUTSIDE RECORDS SUMMARY | 2025-05-01 12:47 | XMS_ITS | Clinical Summary ---
Author Organization [facility] Address [address] [place] [address] Phone Care Team Providers Care Service Girl Name Role Phone Provider, None Primary Care Provider Unavailabl e Allergies Active Allergy Reactions Criticality Noted Date Comments Penicillins Rash Medium 06/27/2016 Medications Suboxone 8-2 MG FILM 1 film under the tongue and allow to dissolve Sublingual twice a day for 21 days 5 Active buPROPion (WELLBUTRIN) 150 MG XL tablet Take 150 mg by mouth. 1 Active clonazePAM (KlonoPIN) 0.5 MG Tablet Take 0.5 mg by mouth. 1 Active FLUoxetine (PROzac) 20 MG Capsule 1 Capsule. 5 Active hydrOXYzine (VISTARIL) 25 MG Capsule 1 - 2 capsules up to 3 times a day as needed for anxiety (max 100 mg/day) Orally Once a day for 30 days 5 Active cyclobenzaprine (FLEXERIL) 10 MG Tablet 1 tablet as needed Orally every 8 hours for 3 days 5 Active ibuprofen (MOTRIN) 600 MG TabletIndicatio ns:Dental infection Take 1 Tablet by mouth every 6 hours as needed for Mild or more severe pain. 30 Tablet 5 Active Active Problems No known active problems Encounters Date Type Department Care Team Description 03/03/2025 12:05 PM CDT [facility] [address] [place] [place] [address] Nic Damon APRN, SURVEYING OR SPATIAL SCIENCE TECHNICIAN Dental infection (Primary Dx) Discharge Disposition: Discharged to home or Selfcare 03/03/2025 Travel from Last 3 Months Social History Tobacco Use Types Packs/Day Years Used Date Smoking Tobacco: Every Day Cigarettes Tobacco Cessation:Ready to Q uit: No; Counseling Given: No Comments No Sex and Gender Information Value Date Recorded Sex Assigned at Not on file Legal Sex Female 11:56 AM CDT Gender Identity Not on file Sexual Orientation Not on file Last Filed Vital Signs Vital Sign Reading Time Taken Comments Blood Pressure 122/68 03/03/2025 12:09 PM CDT Pulse 68 03/03/2025 12:09 PM CDT Temperature 36.6 C (97.8 F) 03/03/2025 12:09 PM CDT Respiratory Rate 18 03/03/2025 12:09 PM CDT Oxygen Saturation 97% 03/03/2025 12:09 PM CDT Inhaled Oxygen Concentration - - Weight 81.6 kg (180 lb) 03/03/2025 12:09 PM CDT Height 162.6 cm (5' 4) 03/03/2025 12:09 PM CDT Body Mass Index 30.9 03/03/2025 12:09 PM CDT Plan of Treatment Health Maintenance Due Date Last Done Comments Hepatitis C Virus (HCV) Screening 1979 Mammogram 1979 Discussion re Starting/Frequency of Mammograms 2019 Pneumococcal Immunization Combined (2 of 2 - PCV) 09/30/2019 09/30/2018 Hepatitis B Immunization (3 of 3 - 19+ 3-dose series) 01/11/2020 08/14/2019, 07/11/2019 SARS-COV-2 Immunization ( - 2023- season) 2024 Colonoscopy 2024 Colorectal Cancer Screening 2024 Influenza Immunization (Se[place] on Ended) 2025 09/30/2018, 12/20/2015 Respiratory Syncytial Virus (RSV) Immunization (Adult) (1 - 1-dose 75+ series) 2054 TdaP Immunization Completed 04/26/2013 Human Papillomavirus (HPV) Immunization Aged Out No longer eligible b ased on patient's age to complete this topic Meningococcal Immunization (ACWY) Aged Out No longer eligible b ased on patient's age to complete this topic Rotavirus Immunization Aged Out No lo nger eligible based on patient's age to complete this topic Insurance MEDICAID [employer] Care Teams Service Girl Relationship Specialty Start Date End Date Provider, None [place] PCP - General 03/03/25
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
--- OUTSIDE RECORDS SUMMARY | 2025-05-01 12:48 | XMS_ITS | Patient Health Record ---
Author Organization [facility] Address [address] [place] [address] Care Team Providers Care Preschool Aide Name Role Phone Alber Downs Primary Care Provider Maria De Jesus Arredondo Unavailable Axel Billingsley Unavailable [phone] Chang Martínez Unavailable [phone] Judit Stallings Unavailable [phone] Radha Lopez Unavailable [phone] AlMatthew Unavailable [phone] Grace Davis Unavailable [phone] Chloé Gentile Unavailable [phone] Vannessa Servin Unavailable [phone] Shannon Art Unavailable Allergies Allergen (clinical drug ingredient) Drug/Non Drug Allergy documented on EMR Reaction Allergy Type Onset Date Status Penicillin rash Drug Allergy Active Results Component Value Reference Range Notes Hepatitis C Virus Antibody w /Rflx to Quantitative Real-time PCR ([id number]) Reviewed date:03/16/2025 10:06:15 AM Interpretation: Performing Lab:[facility], [address] [facility] [facility], [place], Phone - [phone], Director - Patricia Notes/Report: HCV Ab Reactive Non Reactive Hepatitis C Quantitation HCV Not Detected Test Information: The quanti tative range of this assay is 15 IU/mL to 100 million IU/mL. Interpretation: Positive HCV antibody screen without the presence of HCV RNA is consistent with a resolved past infection or a false positive HCV antibody. Consider repeat testing after one month. QuantiFERON-TB Gold Plus ([id number]) Reviewed date:02/13/2025 09:26:29 AM Interpretation:Negative Performing Lab:[facility], [address] [facility] [facility], Phone - [phone], Director - Patricia Notes/Report: QuantiFERON Incubation Incubation performed. QuantiFERON-TB Gold Plus Negative Negative No response to M tuberculosis antigens detected. Infection with M tuberculosis is unlikely, but high risk individuals should be considered for additional testing (ATS/IDSA/CDC Clinical Practice Guidelines, 2017). The reference range is an Antigen minus Nil result of <0.35 IU/mL. Chemiluminescence immunoassay methodology QuantiFERON Criteria QuantiFERON-TB Gold Plus is a qualitative indirect test for M tuberculosis infection (including disease) and is intended for use in conjunction with risk assessment, radiography, and other medical and diagnostic evaluations. The QuantiFERON-TB Gold Plus result is determined by subtracting the Nil value from either TB antigen (Ag) value. The Mitogen tube serves as a control for the test. QuantiFERON TB1 Ag Value 0.05 QuantiFERON TB2 Ag Value 0.03 QuantiFERON Nil Value 0.03 QuantiFERON Mitogen Value >10.00 Rapid Plasma Reagin (RPR) Te st With Reflex to Quantitative RPR and Confirmatory Treponema pallidum Antibodies Reviewed date:02/13/2025 09:26:29 AM Interpretation:Abnormal Performing Lab:[facility], [address] [facility] [address] [facility], Phone - [phone], Director - Patricia Notes/Report: RPR Reactive Non Reactive RPR, Quant. 1:2 NonRea<1:1 titer Treponema pallidum Antibodies Reactive Non Reactive Interpretation: Syphilis: RPR with Reflex to RPR Titer and Treponemal Antibodies, Traditional Screening and Diagnosis Algorithm Treponemal RPR RPR, Qn Ab Final Interpretation -------- --------- - Non N/A N/A No laboratory evidence Reactive of syphilis. Retest in 2-4 weeks if recent exposure us suspected. -------- --------- - Reactive >/=1:1 Non Nontreponemal antibodies Reactive detected. Syphilis unlikely; biological false positive possible. Retest in 2-4 weeks if recent exposure is suspected. -------- --------- - Reactive >/=1:1 Reactive Treponemal and nontreponemal antibodies detected. Consistent with past or current (potential early) syphilis. 12 Panel Urine Drug Screen Reviewed date:02/09/2025 01:23:32 PM Interpretation: Performing Lab: Notes/Report: THC neg OTTO neg MOP (OPI) neg AMP neg MET neg BAR neg BZO pos MDMA neg MTD neg OXY neg PCP neg BUP pos CMP 14 Comprehensive Metabol ic Panel* Reviewed date:10/23/2024 01:38:03 PM Interpretation:Normal Performing Lab:[facility] [place], [address] [facility] [address] [facility], Phone - [phone], Director - PhDRicchiasiyai Notes/Report: Glucose 95 70-99 mg/dL BUN 12 6-24 mg/dL Creatinine 0.84 0.57-1.00 mg/dL eGFR 87 >59 mL/min/1.73 BUN/Creatinine Ratio 14 9-23 Sodium 141 134-144 mmol/L Potassium 4.0 3.5-5.2 mmol/L Chloride 103 96-106 mmol/L Carbon Dioxide, Total 22 20-29 mmol/L Calcium 9.2 8.7-10.2 mg/dL Protein, Total 7.5 6.0-8.5 g/dL Albumin 4.2 3.9-4.9 g/dL Globulin, Total 3.3 1.5-4.5 g/dL Bilirubin, Total <0.2 0.0-1.2 mg/dL Alkaline Phosphatase 91 44-121 IU/L AST (SGOT) 15 0-40 IU/L ALT (SGPT) 10 0-32 IU/L TSH Rfx on Abnormal to Free T4 Reviewed date:10/23/2024 01:38:03 PM Interpretation:Abnormal Performing Lab:[address], Phone - [phone], Director - [facility] Notes/Report: TSH 0.432 0.450-4.500 uIU/mL T4,Free (Direct) 1.16 0.82-1.77 ng/dL Hemoglobin A1c* Reviewed date:10/23/2024 01:38:03 PM Interpretation:Normal Performing Lab:[address], Phone - [phone], Director - [facility] Notes/Report: Hemoglobin A1c 5.5 4.8-5.6 % . Prediabetes: 5.7 - 6.4 Diabetes: >6.4 Glycemic control for adults with diabetes: <7.0 Lipid Panel* Reviewed date:10/23/2024 01:38:03 PM Interpretation:Normal Performing Lab:[address], Phone - [phone], Director - [facility] Notes/Report: Cholesterol, Total 143 100-199 mg/dL Triglycerides 84 0-149 mg/dL HDL Cholesterol 62 >39 mg/dL VLDL Cholesterol Ry 16 5-40 mg/dL LDL Chol Calc (NIH) 65 0-99 mg/dL Herpes Simplex Virus Types 1 and 2 -specific Antibodies, IgG Reviewed date:10/18/2024 11:37:14 AM Interpretation:Positive Performing Lab:[address], Phone - [phone], Director - [facility] Notes/Report: HSV 1 IgG, Type Spec Reactive Non Reactive Please note reference interval change HSV-1 IgG testing performed using the Pam Ele[employer]ys HSV-1 IgG assay. HSV 2 IgG, Type Spec Reactive Non Reactive Please note reference interval change Current guidelines and recommendations do not recommend routine screening for HSV-2 in asymptomatic individuals, including those that are . The detection of HSV-2 IgG antibodies in a single sample indicates previous exposure to HSV-2 but does not give information as to the site of HSV infection or the timing of exposure. The predictive value of positive and negative results depends on the population's prevalence and the pretest likelihood of HSV-2. HSV-2 IgG testing performed using the Pam [employer]ys HSV-2 IgG assay. HIV Screen *HIV 1, 2 Ab, p24 Ag ([id number]) Reviewed date:10/18/2024 11:37:14 AM Interpretation:Negative Performing Lab:[address], Phone - [phone], Director - [facility] Notes/Report: HIV Ab/p24 Ag Screen Non Reactive Non Reactive HIV-1/HIV-2 antibodies and HIV-1 p24 antigen were NOT detected. There is no laboratory evidence of HIV infection. HIV Negative RPR w/reflex to TrepSure Reviewed date:10/23/2024 01:38:03 PM Interpretation:Abnormal Performing Lab:[address], Phone - [phone], Director - [facility] Notes/Report: RPR Reactive Non Reactive RPR, Quant 1:32 NonRea<1:1 titer This test is intended ONLY for specimens that have tested positive (reactive) or equivocal for Treponema pallidum antibodies prior to submission for testing. For the full CDC-recommended syphilis screening and diagnosis algorithm, [facility] offers test code [id number] RPR, Rfx Qn RPR/Confirm TP or 194889 T pallidum Screening [place]. Buprenorphine and Metabolite (Urine test) Reviewed date:02/26/2025 04:18:58 PM Interpretation: Performing Lab:[facility], [address] [facility], [facility], Phone - [phone], Director - PhDAbudu Notes/Report: Clinical Information:CCU:[id number] LM Buprenorphine Positive Confirmation p erformed by Mass Spectrometry Buprenorphine Negative Cutoff=10 Norbuprenorphine Positive Norbuprenorphine Conf, MS, UR 11 Cutoff=10 ng/mL Breathalyzer Reviewed date:02/08/2025 10:41:13 AM Interpretation: Performing Lab: Notes/Report: BLANCA 0.00 12 Panel Urine Drug Screen Reviewed date:02/08/2025 10:40:50 AM Interpretation: Performing Lab: Notes/Report: THC pos OTTO neg MOP (OPI) neg AMP pos MET pos BAR neg BZO pos MDMA neg MTD neg OXY neg PCP neg BUP pos Vitamin D, 25-Hydroxy* Reviewed date:10/23/2024 01:38:03 PM Interpretation:Low Performing Lab:[facility], [address] [facility], Phone - [phone], Director - [facility] Notes/Report: Vitamin D, 25-Hydroxy 25.5 30.0-100.0 ng/mL Vitamin D deficiency has been defined by the [place] of Medicine and an Endocrine Society practice guideline as a level of serum 25-OH vitamin D less than 20 ng/mL (1,2). The Endocrine Society went on to further define vitamin D insufficiency as a level between 21 and 29 ng/mL (2). 1. IOM ([place] of Medicine). 2010. Dietary reference intakes for calcium and D. [place]: The National Academies Press. 2. Federico MF, Rosemarie CORDOVA, Gay BETANCOURT, et al. Evaluation, treatment, and prevention of vitamin D deficiency: an Endocrine Society clinical practice guideline. JCEM. 2010; 96(7):1911-30. Vitamin B12 and Folate Reviewed date:10/23/2024 01:38:03 PM Interpretation:Normal Performing Lab:[facility], [address] [facility], Phone - [phone], Director - [facility] Notes/Report: Vitamin B12 426 415-1011 pg/mL Folate (Folic Acid), Serum 12.7 >3.0 ng/mL A serum folate concentration of less than 3.1 ng/mL is considered to represent clinical deficiency. CBC With Differential/Platel et* Reviewed date:10/23/2024 01:38:02 PM Interpretation:Normal Performing Lab:[facility], [address], Phone - [phone], Director - [facility] Notes/Report: WBC 5.5 3.4-10.8 x10E3/uL Effective October 23, 2024 profile [id number] WBC will be made non-orderable as a stand-alone order code. RBC 4.11 3.77-5.28 x10E6/uL Hemoglobin 11.9 11.1-15.9 g/dL Hematocrit 35.9 34.0-46.6 % MCV 87 79-97 fL MCH 29.0 26.6-33.0 pg MCHC 33.1 31.5-35.7 g/dL RDW 12.3 11.7-15.4 % Platelets 263 150-450 x10E3/uL Neutrophils 55 Not Estab. % Lymphs 31 Not Estab. % Monocytes 6 Not Estab. % Eos 7 Not Estab. % Basos 1 Not Estab. % Neutrophils (Absolute) 3.1 1.4-7.0 x10E3/uL Lymphs (Absolute) 1.7 0.7-3.1 x10E3/uL Monocytes(Absolute) 0.3 0.1-0.9 x10E3/uL Eos (Absolute) 0.4 0.0-0.4 x10E3/uL Baso (Absolute) 0.1 0.0-0.2 x10E3/uL Immature Granulocytes 0 Not Estab. % Immature Grans (Abs) 0.0 0.0-0.1 x10E3/uL Herpes Simplex Virus Types 1 and 2 -specific Antibodies, IgG Reviewed date:10/23/2024 01:38:03 PM Interpretation:Abnormal Performing Lab:[facility] [place], [address], Phone - [phone], Director - [facility] Notes/Report: HSV 1 IgG, Type Spec Reactive Non Reactive Please note reference interval change HSV-1 IgG testing performed using the Pam [employer] HSV-1 IgG assay. HSV 2 IgG, Type Spec Reactive Non Reactive Please note reference interval change Current guidelines and recommendations do not recommend routine screening for HSV-2 in asymptomatic individuals, including those that are . The detection of HSV-2 IgG antibodies in a single sample indicates previous exposure to HSV-2 but does not give information as to the site of HSV infection or the timing of exposure. The predictive value of positive and negative results depends on the population's prevalence and the pretest likelihood of HSV-2. HSV-2 IgG testing performed using the Pam [employer]ys HSV-2 IgG assay. HIV Screen *HIV 1, 2 Ab, p24 Ag (319992) Reviewed date:10/23/2024 01:38:03 PM Interpretation:Negative Performing Lab:[facility] [place], [address] [facility], [place], Phone - [phone], [facility]Report: HIV Ab/p24 Ag Screen Non Reactive Non Reactive HIV-1/HIV-2 antibodies and HIV-1 p24 antigen were NOT detected. There is no laboratory evidence of HIV infection. HIV Negative 12 Panel Urine Drug Screen Reviewed date:03/27/2025 10:55:43 AM Interpretation: Performing Lab: Notes/Report: THC neg OTTO neg MOP (OPI) neg AMP neg MET neg BAR neg BZO neg MDMA neg MTD neg OXY neg PCP neg BUP POS 14 Panel Urine Drug Screen Reviewed date:04/26/2025 10:30:11 AM Interpretation: Performing Lab: Notes/Report: THC neg OTTO neg MOP (OPI) neg AMP neg MET neg BAR neg BZO neg MDMA neg MTD neg OXY neg PCP neg BUP POS TCA neg FTY neg Test, Urine Reviewed date:10/26/2024 02:06:16 PM Interpretation:Negative Performing Lab: Notes/Report: Negative Test, Urine Neg Negative - Negative Reason For Referral Reason colon cancer screeni ng Diagnosis 1 Screening for colon cancer (Z12.11) Referral Organization [facility] Referring Provider First Name Chloé Referring Provider Last Name Short Referring Provider [facility] aimee Referred Provider Specialty Gastroentero logy General Notes Mame Acosta 01:20:49 PM >Sohail SHELDON takes clients insurance., Mame Acosta 10/20/2024 01:28:48 PM >Referral faxed.Dave Melanie D 10/20/2024 01:36:23 PM >Referral letter & message sent to client. Clinical Notes [facility], [address], [address], [place] [address], , Referral Priority Routine Reason positive PHQ9 Diagnosis 1 Depression (F32.9) Referral Organization [facility] Referring Provider First Name Chloé Referring Provider Last Name Short Referring Provider [facility] icine Referred Provider Specialty [facility]al [facility] Clinical Notes Radha Art 11/03/2024 10:53:45 AM > Called, left voicemail messageKaelyn McKayla A 11/09/2024 09:29:43 AM > Analytical Scientist called and left voicemail message with return number., Shannon Art 11/13/2024 04:12:22 PM >Analytical Scientist sent letter to client, will close on 11/27 if not heard back Referral Priority Routine Reason Updated 03/22/2025 H istory of Hep C infxn in 2019. Pt reportedly began treatment in 2019 but only completed 4 out of 8 week treatment. Patient recently had Antibody test done which came back positive ( Hep C RNA negative). Please send referral to infectious disease specialist at or near [place], [place] to eval if Hep C treatment is appropriate. thank you Diagnosis 1 History of hepatitis C (Z86.19) Referral Organization [facility] Referring Provider First Name Matthew Referring Provider Last Name Al Referring Provider [facility] aimee Referred Provider [facility] Referred Provider Specialty Infectious D [facility] Notes Branch Rupali VIZCAINO 03/22/2025 01:29:06 PM > Referral faxed to [facility] with OVN and labs Referral Priority Routine Medications Medication SIG (Take, Route, Frequency, Duration) Notes Start Date End Date Status Sublocade 300 MG/1.5ML 1.5 mL Subcutaneo us every 28 days 03/27/2025 Active hydrOXYzine Pamoate 25 MG 1 - 2 capsules up to 3 times a day as needed for anxiety (max 100 mg/day) Orally Once a day for 30 days 02/28/2025 Active FLUoxetine HCl 20 MG 1 capsule Orally On ce a day for 30 days 02/28/2025 Active Cyclobenzaprine HCl 10 MG 1 tablet as ne eded Orally every 8 hours for 3 days 02/28/2025 Active Social History Tobacco Use: Social History Observation [...] phone, visiting friends or family, going to jewish or club meetings) More than 5 times a week How stressed are you? Stress is when someone feels tense, nervous, anxious, or can\t sleep at night because their mind is troubled A little bit In the past year have you sp ent more than 2 nights in a row in a fci, long term, retirement center, or juvenile correctional facility? No Do [...] taken by DCFS, was yelled at, neglected. Care Home for 18 months was traumatic. 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 for felony possession [...] Psych Hospitalizations - 2014 - 2015 - [facility] x4 for SI/detox, 2010-[facility] for drug treatment Suicidal Ideation Hx - [...] taken by DCFS, was yelled at, neglected. Care Home for 18 months was traumatic. 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 for felony possession [...] Psych Hospitalizations - 2014 - 2015 - [facility] x4 for SI/detox, 2010-[facility] for drug treatment Suicidal Ideation Hx - [...] taken by DCFS, was yelled at, neglected. Care Home for 18 months was traumatic. 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 for felony possession [...] Psych Hospitalizations - 2014 - 2015 - [facility] x4 for SI/detox, 2010-[facility] for drug treatment Suicidal Ideation Hx - [...] taken by DCFS, was yelled at, neglected. Care Home for 18 months was traumatic. 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 for felony possession [...] Psych Hospitalizations - 2014 - 2015 - [facility] x4 for SI/detox, 2010-[facility] for drug treatment Suicidal Ideation Hx - [...] taken by DCFS, was yelled at, neglected. Care Home for 18 months was traumatic. 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 for felony possession [...] for panic attacks. Inpt Psych Hospitalizations - 2015 - 2016 - [facility] x4 for SI/detox, 2010-[facility] for drug treatment Suicidal Ideation Hx - [...] taken by DCFS, was yelled at, neglected. Care Home for 18 months was traumatic. 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 for felony possession [...] Psych Hospitalizations - 2014 - 2015 - [facility] x4 for SI/detox, 2010-[facility] for drug treatment Suicidal Ideation Hx - [...] taken by DCFS, was yelled at, neglected. Care Home for 18 months was traumatic. 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 for felony possession [...] Psych Hospitalizations - 2014 - 2015 - [facility] x4 for SI/detox, 2010-[facility] for drug treatment Suicidal Ideation Hx - [...] taken by DCFS, was yelled at, neglected. Care Home for 18 months was traumatic. 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 for felony possession [...] for panic attacks. Inpt Psych Hospitalizations - 2015 - 2016 - [facility] x4 for SI/detox, 2010-[facility] for drug treatment Suicidal Ideation Hx - Endorses Suicide Attempt(s) - None Homicidal Ideation - None Self-Injury/High Risk Bx - Endorses via cutting around 2011- - - - - - - - - - - - FAMILY PSYCHIATRIC HISTORY Suicides or Attempts - None Alcohol/Drug Use - Mother Other Disorders - Grandfather - OCD - - - - - - - - - - - Problems Problem Type SNOMED Code ICD Code Onset Dates Problem Status W/U Status Risk Notes Problem Tobacco user (863295741) Nicotine dependence, unspecified, uncomplicated (F17.200) Active confirmed Problem Depression (200607727) Depression (F32.9) 02/29/20 25 Active confirmed Problem Posttraumatic stress disorder (15799535) PTSD (post-traumatic stress disorder) (F43.10) 02/29/20 25 Active confirmed Problem Vitamin D deficiency (82056279) Vitamin D deficiency (E55.9) Active confirmed Problem Hepatitis C (86036112) Hepatitis C (B19.20) Active confirmed Problem Generalized anxiety disorder (49695809) SHREE (generalized anxiety disorder) (F41.1) 02/29/20 25 Active confirmed Problem Overweight (510667778) Over weight (E66.3) Active confirmed Problem Laboratory test result abnormal (286737118) Abnormal laboratory test result (R89.9) Active confirmed Problem Methamphetamine abuse (493523176) Methamphetamine abuse (F15.10) 02/29/20 25 Active confirmed Problem Obesity (416654859) Obesity (BMI 30-39.9) (E66.9) Active confirmed Problem Carpal tunnel syndrome of right wrist (815663477860807) Carpal tunnel syndrome of right wrist (G56.01) Active confirmed Problem Obsessive-compulsi ve disorder (791871607) OCD (obsessive compulsive disorder) (F42.9) 02/29/20 25 Active confirmed Problem Opioid use disorder (7257104880) Opioid use disorder (F11.99) 02/29/20 25 Active confirmed Problem Lesion of ulnar nerve (776050965) 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) Active confirmed Vital Signs Heart Rate 83 /min 04/26/2025 Temperature 98.5 degrees Fahrenheit 03/27/2025 Respiratory Rate 16 /min 04/26/2025 Blood pressure diastolic 80 mm Hg 04/26/2025 Oximetry 96 % 04/26/2025 Height 64 in 04/26/2025 Blood pressure systolic 122 mm Hg 04/26/2025 Weight 201 lb 0 oz lbs 04/26/2025 BMI 34.5 kg/m2 04/26/2025 Encounters Encounter Location Date Provider Diagnosis [facility], [facility] [address] [place] [address] 10/26/2024 Chloé Gentile [facility] [address] [place] [address] 02/23/2025 Chang Martínez [facility], [facility] [address] [place] [address] 10/17/2024 Chloé Gentile Establishing care with new doctor, encounter for Z71.89 ; Screening for deficiency anemia Z13.0 ; Screening for metabolic disorder Z13.228 ; Screening for thyroid disorder Z13.29 ; Screening for diabetes mellitus Z13.1 ; Screening for hyperlipidemia Z13.220 ; Exposure to potential infection Z20.9 ; Screening for breast cancer Z12.31 ; Dental abscess K04.7 ; Screening for colon cancer Z12.11 ; Depression F32.9 ; Hepatitis C B19.20 ; Tinea pedis of both feet B35.3 and Nicotine dependence, unspecified, uncomplicated F17.200 [facility] [address] [place] [address] 02/08/2025 Chloé Gentile Adult general medica l exam Z00.00 ; Opioid use disorder F11.90 ; Methamphetamine abuse F15.10 ; History of syphilis Z86.19 ; Ulnar neuropathy of both upper extremities G56.23 ; Nutritional counseling Z71.3 and Nicotine dependence, unspecified, uncomplicated F17.[address] [address] 02/08/2025 Shannon Art Depression F32.9 ; Methamphetamine abuse F15.10 and Opioid use disorder F11.99 [facility], [facility] [address] [place] [address] 02/09/2025 Alber Downs Methamphetamine abus e F15.10 and Opioid use disorder F11.[address] [address] 02/23/2025 Chang Martínez Dietary counseling Z71.3 ; Obesity (BMI 30-39.9) E66.9 ; Opioid use disorder F11.99 and Methamphetamine abuse F15.[address] [place] [address] 02/28/2025 Radha Lopez PTSD (post-traumatic stress disorder) F43.10 ; OCD (obsessive compulsive disorder) F42.9 ; SHREE (generalized anxiety disorder) F41.1 ; Depression F32.9 ; Methamphetamine abuse F15.10 ; Opioid use disorder F11.99 and Medication management Z79.[address] [address] 02/28/2025 Chang Martínez Dietary counseling Z71.3 ; Obesity (BMI 30-39.9) E66.9 ; Muscle strain T14.8XXA and Carpal tunnel syndrome of right wrist G56.[address] [address] 03/01/2025 Maria De Jesus Arredondo Opioid use disorder F11.[address] [address] 03/12/2025 Maria De Jesus Arredondo [address] [address] 03/13/2025 Maria De Jesus Arredondo Opioid use disorder F11.99 ; Dietary counseling Z71.3 and Obesity (BMI 30-39.9) E66.[address] [address] 03/19/2025 Matthew Melendez Dietary counseling Z71.3 ; History of hepatitis C Z86.19 and Obesity (BMI 30-39.9) E66.[address] [place] [address] 03/27/2025 Vannessa Servin Opioid use disorder F11.99 and Over weight E66.[address] [place] [address] 04/25/2025 Alber Downs [facility] [address] [place] [address] 04/26/2025 Judit Mensahgenaro Opioid use disorder F11.99 and Nicotine dependence, unspecified, uncomplicated F17.[address] [place] [address] 10/06/2024 Shannon Art [address] [address] 10/18/2024 Chloé Gentile Abnormal laboratory test result R89.9 ; Vitamin D deficiency E55.9 and Syphilis A53.[address] [place] [address] 10/26/2024 Chloé Gentile Syphilis A53.[address] [address] 10/26/2024 Chloé Gentile [address] [address] 10/27/2024 Chloé Gentile Syphilis A53.[address] [address] 02/02/2025 Chloé Gentile [address] [place] [address] 02/15/2025 Grace Davis [address] [place] [address] 02/20/2025 Chloé Gentile [address] [address] 02/22/2025 Maria De Jesus Arredondo Opioid use disorder F11.[address] [place] [address] 02/28/2025 Radha Lopez [address] [address] 03/01/2025 Maria De Jesus Arredondo Opioid use disorder F11.99 [facility] [address] [place] [address] 03/14/2025 Maria De Jesus Arredondo Opioid use disorder F11.[address] [place] [address] 04/03/2025 Alber Downs [address] [place] [address] 04/25/2025 Alber Downs [address] [address] 05/01/2025 Alber Downs Assessments Encounter Date Diagnosis (ICD Code) Assessment Notes Treatment Notes Treatment Clinical Notes Section Notes 10/17/2024 Establishing care with new doctor, encounter for (ICD-10 - Z71.89) 10/17/2024 Screening for deficiency anemia (ICD-10 - Z13.0) 10/18/2024 Vitamin D deficiency (ICD-10 - E55.9) 10/18/2024 Abnormal laboratory test result (ICD-10 - R89.9) 10/26/2024 Syphilis (ICD-10 - A53.9) 10/27/2024 Syphilis (ICD-10 - A53.9) 02/08/2025 Adult general medical exam (ICD-10 - Z00.00) 02/08/2025 Opioid use disorder (ICD-10 - F11.90) 02/08/2025 Depression (ICD-10 - F32.9) 02/09/2025 Methamphetamine abuse (ICD-10 - F15.10) 02/09/2025 Opioid use disorder (ICD-10 - F11.99) 02/22/2025 Opioid use disorder (ICD-10 - F11.99) 02/23/2025 Dietary counseling (ICD-10 - Z71.3) 02/28/2025 Dietary counseling (ICD-10 - Z71.3) 02/28/2025 PTSD (post-traumatic stress disorder) (ICD-10 - F43.10) 02/28/2025 OCD (obsessive compulsive disorder) (ICD-10 - F42.9) Take fluoxetine as prescribed. 03/01/2025 Opioid use disorder (ICD-10 - F11.99) 03/01/2025 Opioid use disorder (ICD-10 - F11.99) Ingrid wants to decrease to 8 mg daily of the buprenorphine. I have agreed to this dose. Encouraged Ingrid to [facility] due to their practice of having OUD persons on injectables to continue in the program. 03/13/2025 Opioid use disorder (ICD-10 - F11.99) Ingrid was directed to literature on Sublocade. Currently the clinic has no take home brochures, so nurse is going to obtain from [facility]. Questions answered regarding Sublocade. She will follow up with [facility]. 03/14/2025 Opioid use disorder (ICD-10 - F11.99) 03/19/2025 History of hepatitis C (ICD-10 - Z86.19) - Pt reports of Hx of Hep C infxn (first dc back in 2017). Pt reports that she did not start treatment until 2018. Pt reportedly completed 4 (out of 8) week course of antivirals for Hep C then. Pt cited stress from passing of her mother causing her to forget to take meds. Pt recently had Hep C AB lab work (ordered by provider at [facility]). Lab noted Hep C AB positive (but no Hep C RNA detected). This signifies pt had prior Hep C infxn but not currently shedding virus. Pt is currently asymptomatic. Pt denies any chest pain, dyspnea, abd pain, yellowing of skin, fevers/chills, bloody/dark-tarry stools or headache/dizziness . No scleral icterus noted. Vital signs are re-assuring today. - Will Send referral for pt to est care with Infectious disease(ID). ID to determine if antiviral treatment for her prior Hep C hx is appropriate. Pt plans on returning to [place] () after residential discharge. Pt states that she will est care with [facility] at after residential discharge. Pt prefers to see Specialists closure to [facility], if possible. Advise for pt to attempt to see Infectious disease specialist somewhere closer to . - Pt is currently a resident at [facility] Sub[facility] use [facility]/O. been there for one month. Last day is this . Pt will be return to her [place], [place]) after discharge 03/19/2025 Dietary counseling (ICD-10 - Z71.3) 03/27/2025 Opioid use disorder (ICD-10 - F11.99) 04/26/2025 Nicotine dependence, unspecified, uncomplicated (ICD-10 - F17.200) 04/26/2025 Opioid use disorder (ICD-10 - F11.99) 03/27/2025 Over weight (ICD-10 - E66.3) 03/19/2025 Obesity (BMI 30-39.9) (ICD-10 - E66.9) 03/13/2025 Dietary counseling (ICD-10 - Z71.3) 02/28/2025 SHREE (generalized anxiety disorder) (ICD-10 - F41.1) Take fluoxetine as prescribed. 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) 10/18/2024 Syphilis (ICD-10 - A53.9) 10/17/2024 Screening for metabolic disorder (ICD-10 - Z13.228) 10/17/2024 Screening for thyroid disorder (ICD-10 - Z13.29) 02/08/2025 Opioid use disorder (ICD-10 - F11.99) 02/08/2025 History of syphilis (ICD-10 - Z86.19) 02/23/2025 Opioid use disorder (ICD-10 - F11.99) Residential treatment Patient is competent to self-admister medications Continue current suboxone for 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 02/28/2025 Medication management (ICD-10 - Z79.899) May self-administer medications or be administered own oral medications per [facility] protocols. Provided informed consent with understanding of side effects, adverse effects, risks and benefits as well as alternative treatments as previously discussed and with the above recommended medications & other aspects of the treatment program. Agrees to return sooner if symptoms worsen or suicidal or homicidal ideations occur. 10/17/2024 Exposure to potential infection (ICD-10 - Z20.9) 02/08/2025 Nutritional counseling (ICD-10 - Z71.3) 02/08/2025 Nicotine dependence, unspecified, uncomplicated (ICD-10 - F17.200) 10/17/2024 Screening for breast cancer (ICD-10 - Z12.31) 10/17/2024 Dental abscess (ICD-10 - K04.7) 10/17/2024 Screening for colon cancer (ICD-10 - Z12.11) 10/17/2024 Depression (ICD-10 - F32.9) 10/17/2024 Hepatitis C (ICD-10 - B19.20) 10/17/2024 Tinea pedis of both feet (ICD-10 - B35.3) 10/17/2024 Nicotine dependence, unspecified, uncomplicated (ICD-10 - F17.200) 10/26/2024 Other Mame Acosta 10/26/2024 01:23:32 PM LOG HANDLER >Urine test done. Results Negative. 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 10/17/2024 Other Learning About the Safe Use of Antibiotics material was discussed. Pt was educated on use of antibiotic medication including dosing, side effects, adverse effects and anticipated response. Pt was also educated on importance of completing full course of treatment as ordered. Patient voiced understanding of all. 02/08/2025 Other Continue treatment as recommended by [facility] staff. Encouraged patient to obtain routine medical care with patient's own primary care provider or establish as a patient at [facility] if no current primary care provider. 02/08/2025 Other Clinician met w ith client to assess needs for residential services. Clinician gathered information regarding historical presentation of mental health and substance use symptoms including withdrawal, HIV Risk assessment, psychiatric hospitalization history and presenting concern. Clinician conducted PHQ9 and CSSRS assessments as well as social drivers of health screening for the purposes of identifying additional service needs. 03/12/2025 Other Plan for patient: MAT f/u to switch to sublocade 03/27/2025 Other Patient agrees to take medication as prescribed. Discussed medication side effects, adverse effects, risks, benefits, as well as interactions. Encouraged non-use of opioids and other illicit substances. Has naloxone. Discontinuing buprenorphine increases the risk of overdose upon return to illicit opioid use. Use of alcohol or benzodiazepines with buprenorphine increases the risk of overdose and . Education provided about safe storage of medications. Encouraged participation in recovery groups/counseling services. Contact office with questions or concerns. Agrees to return in 28 days for next injection. Patient may self-administe r their own medications or may self-administe r their own oral medications per [facility] Protocol. 04/26/2025 Other Patient agrees to take medication as prescribed. Discussed medication side effects, adverse effects, risks, benefits, as well as interactions. Encouraged non-use of opioids. Encouraged participation in recovery groups. Patient may contact office with questions or concerns. Plan Of Treatment Future Test Test Name Order Date CBC With Differential/Platelet* 02/24/20 25 Hepatitis C Virus Antibody w/Rflx to [place] ntitative Real-time PCR ([id number]) 02/23/2025 CMP 14 Comprehensive Metabolic Panel* Insurance Providers Payer Name Payer Address Payer Phone Subscriber Number Group Number Insured Name Patient Relationship to Insured Coverage Start Date Coverage End Date [facility] Att Claims Department [address] [place] [address] [phone] [id number] Ingrid Long Self - patient is the insured 4 [facility] [employer] Attn Claims Department [address] [place] [address] [phone] [id number] Ingrid Long Self - patient is the insured 5 [facility] [employer] Attn Claims Department [address] [place] [address] [phone] [id number] Ingrid Long Self - patient is the insured 5 Medications Administered Medication Instructions Date of Administration Dosage Notes Sublocade 03/27/2025 300 mg Rayon Coner: Alba Meza 03/27/2025 11:52:53 AM CDT > Pt tolerated well. No s&s of adverse reaction. Sublocade 04/26/2025 380 mg Alba Harris 04/26/2025 10:54:41 AM CDT > Pt tolerated well. No s&s of adverse reaction. Medical (General) History Medical History History ICD Code hepatitis C DOC: Meth, Fentanyl Right shoulder pain Right hand swelling Surgical History Surgery Date(Month/Year) Gall Bladder Removed hysterectomy Hospitalization History Reason Date(Month/Year) [facility] [place] [facility] x4 2016 [facility] 2010 [facility] (detox)
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
--- NOTE | 2025-05-01 13:04 | ECG_ITS ---
Test Date: 2025-05-01 14:01:25 Measurements Intervals [place] Rate: 61 P: 34 TN: 164 QRS: 64 QRSD: 90 T: 47 QT: 404 QTc: 409 Interpretive Statements SINUS RHYTHM NORMAL ECG No previous ECG available for comparison Electronically Signed On 05-01-2025 14:09:49 CDT by Herman Cardoso D.O.
--- NOTE | 2025-05-01 13:10 | ED_ITS ---
HPI - General Adult General Chief complaint: Extremity Problem,Nontraumatic Stated complaint: BL feet swelling Time Seen by Provider: 05/01/25 11:53 History of Present Illness HPI narrative: This is a 44-year-old female with remote history of IV drug abuse and he did methamphetamines and fentanyl on monthly Suboxone injections presenting lower extremity edema. Over the last 5 days she has had pitting edema of the lower extremities up to mid gregg. She has had some dyspnea on exertion but is not short of breath at rest. She does not have any fevers chills productive cough chest pain abdominal pain or urinary symptoms. She does not have orthopnea Related Data Allergies Allergy/AdvReac Type Severity Reaction Status Date / Time Penicillins Allergy Severe Rash Verified 05/01/25 11:30 meperidine (From Demerol) AdvReac Mild Nausea and Verified 05/01/25 11:30 Vomiting PMFSH Past Medical History Medical History Anemia Anxiety BMI 38.0-38.9,adult Cardiac arrhythmia Depression Hepatitis Hepatitis C Right carpal tunnel syndrome Surgical History Surgical History History of endometrial ablation History of hysterectomy Hx of cholecystectomy Hx of tubal ligation Family History Family History Father Unknown family medical history Mother , in 2019 from CHF Hypertension Social History Social History Smoking packs per day: 0.5 Smoking cigarettes per day: 10.0 Years smoked: 20 Smoking pack-years: 10.00 Smoking status: Current every day smoker Tobacco type: cigarettes Second hand tobacco smoke exposure: No Alcohol intake: never Substance use: current Substance use type: marijuana Other substance usage details: daily use of marijuana Living arrangements: with roommate(s) Occupation/Education: occupation Gender identity (if verbalized by the patient): Female Sexual Orientation (if Verbalized by the Patient): Straight or Heterosexual Spiritual care concerns: No Exam 2 Narrative: APPEARANCE: No apparent distress. Head: atraumatic. EYES: EOMI, NOSE: Atraumatic NECK: Trachea midline RESPIRATORY: No increased rate of breathing clear to auscultation speaking full signs CARDIOVASCULAR: RRR, +2 pitting edema to mid gregg bilaterally no skin discoloration no warmth ABDOMINAL: Non-distended soft nontender no CVA tenderness MUSCULOSKELETAl: No obvious deformities NEURO: Alert. Moving 4/4 extremities SKIN:: Warm, dry. Normal color PSYCHIATRIC: Normal affect Course Vital Signs Vital signs: Vital Signs Temperature 97.5 F L 05/01/25 11:32 Pulse Rate 81 05/01/25 11:32 Respiratory Rate 16 05/01/25 11:32 Blood Pressure 130/74 05/01/25 11:32 Pulse Oximetry 97 05/01/25 11:32 Oxygen Delivery Room Air 05/01/25 11:32 Temperature 97.5 F L 05/01/25 11:32 Pulse Rate 81 05/01/25 11:32 Respiratory Rate 16 05/01/25 11:32 Blood Pressure 130/74 05/01/25 11:32 Pulse Oximetry 97 05/01/25 11:32 Oxygen Delivery Room Air 05/01/25 11:32 Medical Decision Making [facility] Narrative Medical decision making narrative: -Course: 44-year-old female with history remote IV drug abuse presenting lower extremity edema. She has noted some dyspnea on exertion does not have any objective signs of dyspnea this time. Her workup including CBC, CMP troponin x2, EKG chest x-ray were unremarkable. Blood cultures are still pending although infective endocarditis much less likely given she has no other symptoms of congestive heart failure/ valvular failure. Edema likely dependent edema. Patient be discharged with compression stockings. She will be instructed follow-up with primary care physician. Instructed to return if she develops worsening edema, worsening chest pain shortness of breath or any new symptoms. -DDX includes but is not limited to: Dependent edema congestive heart failure, endocarditis failure liver -Co-morbidities complicating care: History of IV drug abuse currently 90 days clean. Vital Signs Vital Signs: Vital Signs Temperature 97.5 F L 05/01/25 11:32 Pulse Rate 81 05/01/25 11:32 Respiratory Rate 16 05/01/25 11:32 Blood Pressure 130/74 05/01/25 11:32 Pulse Oximetry 97 05/01/25 11:32 Oxygen Delivery Room Air 05/01/25 11:32 Temperature 97.5 F L 05/01/25 11:32 Pulse Rate 81 05/01/25 11:32 Respiratory Rate 16 05/01/25 11:32 Blood Pressure 130/74 05/01/25 11:32 Pulse Oximetry 97 05/01/25 11:32 Oxygen Delivery Room Air 05/01/25 11:32 Lab Data 05/01/25 13:27 05/01/25 13:27 Labs: Lab Results 05/01/25 05/01/25 05/01/25 Range/Units 13:26 13:27 15:46 WBC 3.7 L (4.5-10.0) K/mm3 RBC 4.19 L (4.2-5.4) M/mm3 Hgb 12.2 D (12.0-15.0) g/dL Hct 37.8 (37.0-47.0) % MCV 90.2 (80-100) fl MCH 29.1 (26-34) pg MCHC 32.3 (32-36) g/dl RDW 12.2 (11.5-14.5) % Plt Count 167 (150-375) k/mm3 MPV 9.7 (7.4-10.4) fl Immature Gran % (Auto) 0.3 (0-0.5) % Neut % (Auto) 45.7 (45.5-73.1) % Lymph % (Auto) 39.6 (18.3-44.2) % [place] % (Auto) 8.8 H (2.6-8.5) % Eos % (Auto) 4.8 H (0-4.4) % Baso % (Auto) 0.8 (0.2-1.2) % Lymph # (Auto) 1.48 (0.9-3.2) K/mm3 [place] # (Auto) 0.3 (0.1-0.6) K/mm3 Eos # (Auto) 0.2 (0-0.3) K/mm3 Baso # (Auto) 0.0 (0.0-0.1) K/mm3 Abs Immat Gran (auto) 0.01 (0.00-0.031) K/mm3 Absolute Neuts (auto) 1.7 (1.3-6.7) K/mm3 Absolute Nucleated RBC 0.000 (0.0-0.012) K/mm3 Nucleated RBC % 0.0 (0.0-0.2) % PT 12.7 (11.1-14.7) Seconds INR 1.0 APTT 28.6 (22.3-36.8) Seconds Sodium 139 (137-145) mmol/L Potassium 4.4 (3.4-5.0) mmol/L Chloride 105 (98-107) mmol/L Carbon Dioxide 28 (22-30) mmol/L Anion Gap 6 (4-12) mmol/L BUN 19 H (7-17) mg/dL Creatinine 0.69 L (0.7-1.0) mg/dL Estim Creat Clear Calc 99 ml/min Estimated GFR > 60 (59 - ) Glucose 124 H (65-110) mg/dL Calcium 9.0 (8.4-10.2) mg/dL Phosphorus 5.2 H (2.5-4.5) mg/dL Magnesium 1.7 (1.6-2.3) mg/dL Total Bilirubin 0.3 (0.2-1.3) mg/dL AST 79 H (14-36) U/L ALT 51 H (6-35) U/L Alkaline Phosphatase 62 (38-126) U/L Troponin I < 0.012 < 0.012 (0.000-0.034) ng/mL NT-Pro-B Natriuret Pep 29 (19.9-100) pg/mL Total Protein 7.1 (6.3-8.2) g/dL Albumin 3.9 (3.5-5.1) g/dL Lipase 38 (23-300) U/L Beta HCG, Quant < 2.39 mIU/ML Urine Color Yellow (Yellow) Urine Appearance Clear (Clear) Urine pH 6.0 (5.0-9.0) Ur Specific [place] 1.019 (1.001-1.035) Urine Protein Negative (Negative) mg/dL Urine Glucose (UA) Negative (Negative) mg/dL Urine Ketones Negative (Negative) mg/dL Ur Blood (Man) Negative (Negative) Urine Nitrate Negative (Negative) Urine Bilirubin Negative (Negative) Urine Urobilinogen 0.2 (<2.0) mg/dL Leukocyte Esterase Rfl Negative (Negative) [place]/UL Urine Opiates Screen Negative (Negative) Urine Methadone Screen Negative (Negative) Ur Barbiturates Screen Negative (Negative) Ur Phencyclidine Scrn Negative (Negative) Ur Amphetamine Screen Negative (Negative) U Benzodiazepines Scrn Negative (Negative) Urine Cocaine Screen Negative (Negative) U Cannabinoids Screen Negative (Negative) Ethyl Alcohol < 10 (<10) mg/dL Discharge Plan Discharge Clinical Impression: Bilateral lower extremity edema Patient Disposition: Home Condition: Stable Instructions: Antibiotic Form, Leg Edema (ED) Additional Instructions: You were seen in the emergency department for lower extremity edema. Your workup here was very reassuring and I do not see evidence of heart failure or other serious illness. We are still awaiting your blood cultures which will return in the next several days. Please use compression stockings. Please elevate your feet at night. Please follow-up with your primary care physician for further management Patient Language: Somali Prescriptions: No Action ibuprofen 600 mg tablet 600 mg PO Q6H PRN (Reason: pain) Qty: 30 0RF clindamycin HCl 300 mg capsule 300 mg PO QID 10 Days Qty: 40 0RF valacyclovir 1 gram tablet 1,000 mg PO Q12H 10 Days Qty: 20 0RF Magic Mouthwash (Dr. Joyner) 120 mL suspension 5 ml PO Q6H Qty: 120 0RF Rx Instructions: diphenhydramine 12.5 mg/5 mL oral elixir 40 mL; Lidocaine Viscous 2 % mucosal solution 40 mL; Maalox 200 mg-200 mg-20 mg/5 mL oral suspension 40 mL; Per 120 mL Follow-up/Referrals: Short,Chloé Hercules NP [Primary Care Provider] -
[2025-05-01 13:46] LABS: Basophils Percent Auto 0.8 % (0.2-1.2); Eosinophils Absolute Auto 0.2 K/mm3 (0-0.3); Eosinophils Percent Auto 4.8 % (0-4.4); Hematocrit 37.8 % (37.0-47.0); Hemoglobin 12.2 g/dL (12.0-15.0); Immature Granulocyte Absolute 0.01 K/mm3 (0.00-0.031); Immature Granulocyte Percent A 0.3 % (0-0.5); Lymphocytes Absolute Auto 1.48 K/mm3 (0.9-3.2); Lymphocytes Percent Auto 39.6 % (18.3-44.2); Mean Corpuscular HGB Conc 32.3 g/dl (32-36); Mean Corpuscular Hemoglobin 29.1 pg (26-34); Mean Corpuscular Volume 90.2 fl (80-100); Mean Platelet Volume 9.7 fl (7.4-10.4); Monocytes Absolute Auto 0.3 K/mm3 (0.1-0.6); Monocytes Percent Auto 8.8 % (2.6-8.5); Neutrophils Absolute Auto 1.7 K/mm3 (1.3-6.7); Neutrophils Percent Auto 45.7 % (45.5-73.1); Platelet Count Result 167 k/mm3 (150-375); Red Blood Count 4.19 M/mm3 (4.2-5.4); Red Cell Distribution Width 12.2 % (11.5-14.5); White Blood Count 3.7 K/mm3 (4.5-10.0)
--- NOTE | 2025-05-01 13:57 | PC.NURSE ---
Called and spoke with Mitzy to add Beta HCG on to patient lab work.
[2025-05-01 13:58] LABS: Add Urine Microscopic? NO; Appearance Urine Clear (Clear); Bilirubin Urine Negative (Negative); Blood Urine Negative (Negative); Color Urine Yellow (Yellow); Glucose Urine UA Negative (Negative); Ketones Urine Negative (Negative); Leukocyte Esterase Ur Negative LEU/UL (Negative); Nitrate Urine Negative (Negative); Protein Urine Negative (Negative); Specific Grav Ur 1.019 (1.001-1.035); Urobilinogen Urine 0.2 mg/dL (<2.0)
[2025-05-01 13:58] LABS: Prothrombin Time 12.7 Seconds (11.1-14.7)
[2025-05-01 13:59] LABS: Partial Thromboplastin Time 28.6 Seconds (22.3-36.8)
[2025-05-01 14:00] LABS: Alanine Aminotransferase 51 U/L (6-35); Albumin Level 3.9 g/dL (3.5-5.1); Alkaline Phosphatase 62 U/L (38-126); Anion Gap 6 mmol/L (4-12); Aspartate Amino Transferase 79 U/L (14-36); Bilirubin,Total 0.3 mg/dL (0.2-1.3); Blood Urea Nitrogen 19 mg/dL (7-17); Carbon Dioxide 28 mmol/L (22-30); Chloride 105 mmol/L (98-107); Estimated CRCL calculation 99 ml/min; Estimated Glomerular Filt Rate > 60; Glucose 124 mg/dL (65-110); Lipase 38 U/L (23-300); Magnesium 1.7 mg/dL (1.6-2.3); Phosphorus 5.2 mg/dL (2.5-4.5); Potassium 4.4 mmol/L (3.4-5.0); Sodium 139 mmol/L (137-145); Total Protein 7.1 g/dL (6.3-8.2)
[2025-05-01 14:03] LABS: Ethanol < 10 mg/dL (<10)
[2025-05-01 14:09] LABS: NT Pro B Type Natriuretic Pept 29 pg/mL (19.9-100)
[2025-05-01 14:12] LABS: Troponin I < 0.012 ng/mL (0.000-0.034)
[2025-05-01 14:15] LABS: Amphetamine Screen Urine Negative (Negative); Barbiturate Screen Urine Negative (Negative); Benzodiazepines Screen Urine Negative (Negative); Cannabinoid Screen Urine Negative (Negative); Cocaine Screen Urine Negative (Negative); Methadone Screen Urine Negative (Negative); Opiate Screen Urine Negative (Negative); Phencyclidine Screen Urine Negative (Negative)
[2025-05-01 14:31] LABS: Beta HCG Quantitative < 2.39 mIU/ML
--- NOTE | 2025-05-01 15:39 | ECG_ITS ---
Test Date: 2025-05-01 15:44:01 Measurements Intervals [place] Rate: 63 P: 47 FL: 178 QRS: 64 QRSD: 90 T: 55 QT: 413 QTc: 425 Interpretive Statements SINUS RHYTHM BASELINE ARTIFACT- I, II, III, AVR, AVL NORMAL ECG Compared to ECG 05/01/2025 14:01:25 No significant changes Electronically Signed On 05-01-2025 16:11:05 CDT by Herman Cardoso D.O.
[2025-05-01 16:15] LABS: Troponin I < 0.012 ng/mL (0.000-0.034)
== END 2025-05-01 16:50 | disposition home or self-care (01) ==
PROVIDERS: Emergency Provider Emergency Medicine; PCP Nurse Practitioner Family
DX: R60.0 Localized edema (principal); F41.9 Anxiety disorder, unspecified; F32.A Depression, unspecified; F17.210 Nicotine dependence, cigarettes, uncomplicated; Z86.19 Personal history of other infectious and parasitic diseases; Z86.2 Personal history of diseases of the blood and blood-forming organs and certain disorders involving the immune mechanism; Z90.710 Acquired absence of both cervix and uterus; Z90.49 Acquired absence of other specified parts of digestive tract
CPT/HCPCS: 36415; 71045; 80053; 80307; 81003; 82077; 83690; 83735; 83880; 84100; 84484; 84702; 85025; 85610; 85730; 87040; 93005; 99284

== ENCOUNTER 2025-05-11 10:10 | Emergency (ER) | payer OTHER, SELFPAY ==
[2025-05-11 10:17] VITALS: BP 130/69; PULSE 78; RESP 16; TEMP 36.5; O2SAT 100
--- NOTE | 2025-05-11 10:27 | ED_ITS ---
HPI - Dental/Oral General Chief complaint: Dental/Oral Stated complaint: Dental Pain Time Seen by Provider: 05/11/25 10:27 Source: patient Mode of arrival: ambulatory Limitations: no limitations History of Present Illness HPI Narrative: 44-year-old female with dental pain for 2 days. Called her dentist and has appointment for 2 weeks. Was told to come and start antibiotic. Afebrile. All systems reviewed and negative except as noted above. Related Data Home Medications ?Medication ?Instructions ?Recorded ?Confirmed ?Last Taken ?Type buprenorphine 300 mg/1.5 mL mg subcut 05/11/25 Unknown History solution,exten.rel.subcutaneous syringe (Sublocade) hydroxyzine pamoate 25 mg capsule mg 05/11/25 Unknown History Allergies Allergy/AdvReac Type Severity Reaction Status Date / Time Penicillins Allergy Severe Rash Verified 05/11/25 10:17 meperidine (From Demerol) AdvReac Mild Nausea and Verified 05/11/25 10:17 Vomiting Review of Systems Review of Systems: CONSTITUTIONAL: Denies fever, chills, or sweats. EYES: Denies visual changes, redness, or discharge. ENT: Denies rhinorrhea, congestion, sore throat, or otalgia. Reports dental pain CARDIOVASCULAR: Denies chest pain, palpitations, or edema. RESPIRATORY: Denies cough or dyspnea. GASTROINTESTINAL: Denies abdominal pain, nausea, vomiting, or diarrhea. GENITOURINARY: Denies dysuria or hematuria. SKIN: Denies rash or itching. MUSCULOSKELETAL: Denies back pain, joint pain, or myalgia. NEUROLOGIC: Denies headache, numbness, or weakness. PSYCHIATRIC: Denies anxiety or depression. All other systems reviewed are negative, except as documented in HPI. [facility] Past Medical History Medical History Anemia Anxiety BMI 38.0-38.9,adult Cardiac arrhythmia Depression Hepatitis Hepatitis C Right carpal tunnel syndrome Surgical History Surgical History History of endometrial ablation History of hysterectomy Hx of cholecystectomy Hx of tubal ligation Family History Family History Father Unknown family medical history Mother , in 2019 from CHF Hypertension Social History Social History Smoking packs per day: 0.5 Smoking cigarettes per day: 10.0 Years smoked: 20 Smoking pack-years: 10.00 Smoking status: Current every day smoker Tobacco type: cigarettes Second hand tobacco smoke exposure: No Alcohol intake: never Substance use: current Substance use type: marijuana Other substance usage details: daily use of marijuana Living arrangements: with roommate(s) Occupation/Education: occupation Gender identity (if verbalized by the patient): Female Sexual Orientation (if Verbalized by the Patient): Straight or Heterosexual Spiritual care concerns: No Comments At time of signature, agree with nursing past medical, surgical, social and family history. There is no relevant family history pertinent to the presenting complaint. Exam Narrative: GENERAL: This is a well-nourished, well-developed patient, in no apparent distress. HEAD: normocephalic, atraumatic. EYES: PERRL. Sclera clear/white. Vision is grossly intact. EARS: External ears normal NOSE: External nose normal MOUTH: tooth #10 and #11 broken off the gumline, decayed, gums erythematous but no abscess noted NECK: Neck supple, non-tender without lymphadenopathy, masses or thyromegaly. CARDIOVASCULAR: Regular rate and rhythm without murmurs, gallops, or rubs. RESPIRATORY: Clear to auscultation. Breath sounds equal bilaterally. No wheezes, rales, or rhonchi. SKIN: warm, Dry, intact with no suspicious lesions or rash, good texture and turgor. NEURO: awake, alert, and oriented to person, place and time. There were no obvious focal neurologic abnormalities. EXTREMITIES: No joint tenderness, effusion, or edema noted. Course Course Level of Care: Express Care Visit Vital Signs Vital signs: Vital Signs Temperature 36.5 C 05/11/25 10:17 Pulse Rate 78 05/11/25 10:17 Respiratory Rate 16 05/11/25 10:17 Blood Pressure 130/69 05/11/25 10:17 Pulse Oximetry 100 05/11/25 10:17 Oxygen Delivery Room Air 05/11/25 10:17 Temperature 36.5 C 05/11/25 10:17 Pulse Rate 78 05/11/25 10:17 Respiratory Rate 16 05/11/25 10:17 Blood Pressure 130/69 05/11/25 10:17 Pulse Oximetry 100 05/11/25 10:17 Oxygen Delivery Room Air 05/11/25 10:17 reviewed MDM - Dental/Oral MDM Narrative Medical decision making narrative: prescribed clindamycin. Pt well appearing, nontoxic. afebrile. recommend follow up with abx. Differential Diagnosis Differential diagnosis: Likely toothache, dental abscess and fracture of tooth Discharge Plan Discharge Clinical Impression: Dental infection Patient Disposition: Home Condition: Stable Instructions: Toothache (ED) Additional Instructions: take antibiotic as prescribed until gone. Take ibuprofen every 6-8 hours as needed for pain. Follow-up with dentist at next available appointment. Patient Language: Australian Prescriptions: New clindamycin HCl [Cleocin HCl] 300 mg capsule 300 mg PO Q6H 10 Days Qty: 40 0RF ibuprofen 800 mg tablet 800 mg PO TID PRN (Reason: pain) Qty: 30 0RF No Action hydroxyzine pamoate 25 mg capsule Sublocade 300 mg/1.5 mL solution, extended rel syringe SUBCUT Follow-up/Referrals: Short,Chloé Hercules NP [Primary Care Provider] - Time of Disposition: 10:30
== END 2025-05-11 10:35 | disposition home or self-care (01) ==
PROVIDERS: Emergency Provider Nurse Practitioner Family; PCP Nurse Practitioner Family
DX: K04.7 Periapical abscess without sinus (principal); F17.210 Nicotine dependence, cigarettes, uncomplicated; Z79.899 Other long term (current) drug therapy
CPT/HCPCS: 99213; G0463

== ENCOUNTER 2025-06-23 12:55 | Emergency (ER) | payer OTHER, SELFPAY ==
--- NOTE | ~2025-06-23 | XR_ITS ---
EXAMINATION: XR shoulder LT min 2V DATE: 06/23/2025 13:45 INDICATION: Left shoulder pain post lifting injury TECHNIQUE: AP internally and externally rotated, AP oblique externally rotated and axillary views of the left shoulder were obtained. COMPARISON: None FINDINGS: Normal alignment. No fracture.Minimal joint space is normal however there are small marginal osteoph ytes about the humeral head consistent with mild osteoarthritis. Minimal acromioclavicular osteoarthr itis. Soft tissues are unremarkable. Visualized portion of the lungs are clear. IMPRESSION: Mild left glenohumeral osteoarthritis. No acute osseous abnormality. Reviewed, dictated and finalized at location A.
--- OUTSIDE RECORDS SUMMARY | 2025-06-23 12:57 | XMS_ITS | Clinical Summary ---
Author Organization 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 Name Role Phone Provider, None Primary Care [...] Active Active Problems No known active problems Social History Tobacco Use Types Packs/Day Years [...] C Virus (HCV) Screening 1979 Mammogram 1979 Human Papillomavirus (HPV) Immunization (1 - 3-dose series) 1994 Discussion re Starting/Frequency of Mammograms 2019 Pneumococcal Immunization Combined (2 of 2 - PCV) 09/30/2019 09/30/2018 Hepatitis B Immunization (3 of 3 - 19+ 3-dose series) 01/11/2020 08/14/2019, 07/11/2019 SARS-COV-2 Immunization ( - 2023- season) 2024 Cologuard 2024 Colonoscopy 2024 Colorectal Cancer Screening 2024 Immunochemical Fecal Occult Blood 2024 Influenza Immunization (#1) 07/23/202507/2018, 12/20/2015 Respiratory Syncytial Virus (RSV) Immunization (Adult) (1 - 1-dose 75+ series) 2054 TdaP Immunization Completed 04/26/2013 Meningococcal Immunization (ACWY) Aged Out No longer eligible b ased on patient's age to complete this topic Rotavirus Immunization Aged Out No lo nger eligible based on patient's age to complete this topic Insurance MEDICAID [employer] Care Teams Law 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
--- OUTSIDE RECORDS SUMMARY | 2025-06-23 12:57 | XMS_ITS | Patient Health Record ---
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 Name Role Phone Radha Lopez Primary Care Provider [phone] Maria De Jesus Arredondo Unavailable Axel Billingsley Unavailable [phone] Alber Downs Unavailable [phone] Chang Martínez Unavailable [phone] Judit Stallings Unavailable Matthew Melendez Unavailable [phone] Grace Davis Unavailable [phone] Chloé Gentile Unavailable [phone] Vannessa Servin Unavailable [phone] Shannon Art Unavailable Allergies Allergen (clinical drug ingredient) Drug/Non Drug Allergy documented on EMR Reaction Allergy Type Onset Date Status Penicillin rash Drug Allergy Active Results Component Value Reference Range Notes 14 Panel Urine Drug Screen Reviewed date:04/26/2025 10:30:11 AM Interpretation: Performing Lab: Notes/Report: THC neg OTTO neg MOP (OPI) neg AMP neg MET neg BAR neg BZO neg MDMA neg MTD neg OXY neg PCP neg BUP POS TCA neg FTY neg 12 Panel Urine Drug Screen Reviewed date:02/09/2025 01:23:32 PM Interpretation: Performing Lab: Notes/Report: THC neg OTTO neg MOP (OPI) neg AMP neg MET neg BAR neg BZO pos MDMA neg MTD neg OXY neg PCP neg BUP pos Breathalyzer Reviewed date:02/08/2025 10:41:13 AM Interpretation: Performing Lab: Notes/Report: BLANCA 0.00 Buprenorphine and Metabolite (Urine test) Reviewed date:02/26/2025 04:18:58 PM Interpretation: Performing Lab:[facility], [address] [facility], [place], Phone - [phone], Director - PhDAbudu Notes/Report: Clinical Information:CCU:[id number] LM Buprenorphine Positive Confirmation p erformed by Mass Spectrometry Buprenorphine Negative Cutoff=10 Norbuprenorphine Positive Norbuprenorphine Conf, MS, UR 11 Cutoff=10 ng/mL QuantiFERON-TB Gold Plus ([id number]) Reviewed date:02/13/2025 09:26:29 AM Interpretation:Negative Performing Lab:[facility] [place], [address] [facility], Phone - [phone], Director - PhDRichighlands [facility] center[facility]ai Notes/Report: QuantiFERON Incubation Incubation performed. QuantiFERON-TB Gold [...] Antibodies Reviewed date:02/13/2025 09:26:29 AM Interpretation:Abnormal Performing Lab:[facility] [place], [address] [facility], [place], Phone - [phone], Director - PhDRicchiasiyai Notes/Report: RPR Reactive Non Reactive RPR, Quant. [...] syphilis. 12 Panel Urine Drug Screen Reviewed date:02/08/2025 10:40:50 AM Interpretation: Performing Lab: Notes/Report: THC pos OTTO neg MOP (OPI) neg AMP pos MET pos BAR neg BZO pos MDMA neg MTD neg OXY neg PCP neg BUP pos 14 Panel Urine Drug Screen Reviewed date:05/24/2025 11:01:24 AM Interpretation: Performing Lab: Notes/Report: THC neg OTTO neg MOP (OPI) neg AMP neg MET neg BAR neg BZO neg MDMA neg MTD neg OXY neg PCP neg BUP POS TCA neg FTY neg Hepatitis C Virus Antibody w /Rflx to Quantitative Real-time PCR ([id number]) Reviewed date:03/16/2025 10:06:15 AM Interpretation: Performing Lab:[facility], [address] [facility], Phone - [phone], Director - [facility] Notes/Report: HCV Ab Reactive Non Reactive Hepatitis C Quantitation HCV Not Detected Test Information: The quanti tative range of this assay is 15 IU/mL to 100 million IU/mL. Interpretation: Positive HCV antibody screen without the presence of HCV RNA is consistent with a resolved past infection or a false positive HCV antibody. Consider repeat testing after one month. 12 Panel Urine Drug Screen Reviewed date:03/27/2025 10:55:43 AM Interpretation: Performing Lab: Notes/Report: THC neg OTTO neg MOP (OPI) neg AMP neg MET neg BAR neg BZO neg MDMA neg MTD neg OXY neg PCP neg BUP POS CBC With Differential/Platel et* Reviewed date:10/23/2024 01:38:02 PM Interpretation:Normal Performing Lab:[facility] [place], [address] [facility], Phone - [phone], Director - [facility] Notes/Report: WBC 5.5 3.4-10.8 x10E3/uL Effective October 23, 2024 profile [id number] WBC will be made non-orderable as a [...] % Immature Grans (Abs) 0.0 0.0-0.1 x10E3/uL CMP 14 Comprehensive Metabol ic Panel* Reviewed date:10/23/2024 01:38:03 PM Interpretation:Normal Performing Lab:[address], Phone - [phone], Director - [facility] Notes/Report: Glucose 95 70-99 mg/dL BUN 12 [...] T4 Reviewed date:10/23/2024 01:38:03 PM Interpretation:Abnormal Performing Lab:[address], Phone - [phone], Director - [facility] Notes/Report: TSH 0.432 0.450-4.500 uIU/mL T4,Free (Direct) 1.16 0.82-1.77 ng/dL Hemoglobin A1c* Reviewed date:10/23/2024 01:38:03 PM Interpretation:Normal Performing Lab:[address], Phone - [phone], Director - [facility] Notes/Report: Hemoglobin A1c 5.5 4.8-5.6 % . Prediabetes: 5.7 - 6.4 Diabetes: >6.4 Glycemic control for adults with diabetes: <7.0 Lipid Panel* Reviewed date:10/23/2024 01:38:03 PM Interpretation:Normal Performing Lab:[address], Phone - [phone], Director - [facility] Notes/Report: Cholesterol, Total 143 100-199 mg/dL Triglycerides 84 0-149 mg/dL HDL Cholesterol 62 >39 mg/dL VLDL Cholesterol Ry 16 5-40 mg/dL LDL Chol Calc (NIH) 65 0-99 mg/dL Herpes Simplex Virus Types 1 and 2 -specific Antibodies, IgG Reviewed date:10/18/2024 11:37:14 AM Interpretation:Positive Performing Lab:[address], Phone - [phone], Director - [facility] Notes/Report: HSV 1 IgG, Type Spec Reactive [...] Screen *HIV 1, 2 Ab, p24 Ag ([id number]) Reviewed date:10/18/2024 11:37:14 AM Interpretation:Negative Performing Lab:[address], Phone - [phone], Director - [facility] Notes/Report: HIV Ab/p24 Ag Screen Non Reactive Non Reactive HIV-1/HIV-2 antibodies and HIV-1 p24 antigen were NOT detected. There is no laboratory evidence of HIV infection. HIV Negative RPR w/reflex to TrepSure Reviewed date:10/23/2024 01:38:03 PM Interpretation:Abnormal Performing Lab:[facility] [address] [place] [address], Phone - [phone], Director - [facility] Notes/Report: RPR Reactive Non Reactive RPR, Quant 1:32 NonRea<1:1 titer This test is intended ONLY for specimens that have tested positive (reactive) or equivocal for Treponema pallidum antibodies prior to submission for testing. For the full CDC-recommended syphilis screening and diagnosis algorithm, [facility] offers test code 930556 RPR, Rfx Qn RPR/Confirm TP or 896890 T pallidum Screening [place]. Vitamin B12 and Folate Reviewed date:10/23/2024 01:38:03 PM Interpretation:Normal Performing Lab:[address], Phone - [phone], Director - [facility] Notes/Report: Vitamin B12 549 522-1405 pg/mL Folate (Folic Acid), Serum 12.7 >3.0 ng/mL A serum folate concentration of less than 3.1 ng/mL is considered to represent clinical deficiency. Vitamin D, 25-Hydroxy* Reviewed date:10/23/2024 01:38:03 PM Interpretation:Low Performing Lab:[facility], [address] [place] [address], Phone - [phone], Director - [facility] Notes/Report: Vitamin D, 25-Hydroxy 25.5 30.0-100.0 ng/mL Vitamin D deficiency has been defined by the [place] of Medicine and an Endocrine Society practice guideline as a level of serum 25-OH vitamin D less than 20 ng/mL (1,2). The Endocrine Society went on to further define vitamin D insufficiency as a level between 21 and 29 ng/mL (2). 1. IOM ([place] of Medicine). 2010. Dietary reference intakes for calcium and D. Amanda [place]: The National Academies Press. 2. Federico MF, Rosemarie NC, Gay BETANCOURT, et al. Evaluation, treatment, and prevention of vitamin D deficiency: an Endocrine Society clinical practice guideline. JCEM. 2010; 96(7):1911-30. HIV Screen *HIV 1, 2 Ab, p24 Ag (035065) Reviewed date:10/23/2024 01:38:03 PM Interpretation:Negative Performing Lab:[facility], [address] [place] [address], Phone - [phone], Director - [facility] Notes/Report: HIV Ab/p24 Ag Screen Non Reactive Non Reactive HIV-1/HIV-2 antibodies and HIV-1 p24 antigen were NOT detected. There is no laboratory evidence of HIV infection. HIV Negative Herpes Simplex Virus Types 1 and 2 -specific Antibodies, IgG Reviewed date:10/23/2024 01:38:03 PM Interpretation:Abnormal Performing Lab:[facility] [place], [address] [facility], [place], Phone - [phone], Director - Patricia Notes/Report: HSV 1 IgG, Type Spec Reactive [...] using the Pam Ele[employer]ys HSV-2 IgG assay. Test, Urine Reviewed date:10/26/2024 02:06:16 PM Interpretation:Negative Performing Lab: Notes/Report: Negative Test, Urine Neg Negative - Negative Reason For Referral Reason colon cancer screeni ng Diagnosis 1 Screening for colon cancer (Z12.11) Referral Organization [facility] Referring Provider First Name Chloé Referring Provider Last Name Short Referring Provider [facility] aimee Referred Provider Specialty Gastroentero logy General Notes Mame Acosta 01:20:49 PM >[facility] takes clients insurance., Mame Acosta 10/20/2024 01:28:48 PM >Referral faxed., Mame Acosta 10/20/2024 01:36:23 PM >Referral letter & message sent to client. Clinical Notes [facility], [address], [address], [place] [address], , Referral Priority Routine Reason positive PHQ9 Diagnosis 1 Depression (F32.9) Referral Organization [facility] Referring Provider First Name Chloé Referring Provider Last Name Short Referring Provider [facility] aimee Referred Provider [facility] Clinical Notes Radha Art A 11/03/2024 10:53:45 AM > Called, left voicemail message Raudel Atra Gisselle 11/09/2024 09:29:43 AM > Manager Shell called and left voicemail message with return number., Kaelyn Shannon Pitts 11/13/2024 04:12:22 PM >Manager Shell sent letter to client, will close on [...] to infectious disease specialist at or near [place], [place] to eval if Hep C treatment is appropriate. thank you Diagnosis 1 History of hepatitis C (Z86.19) Referral Organization [facility] Referring Provider First Name Matthew Referring Provider Last Name Al Referring Provider [facility] aimee Referred Provider [facility] Infect ious Disease Referred Provider Specialty Infectious D isease General Notes Branch RNRupali 03/22/2025 01:29:06 PM > Referral faxed to [facility] Disease with OVN and labs Referral Priority Routine Medications Medication SIG (Take, Route, Frequency, Duration) Notes Start Date End Date Status Cyclobenzaprine HCl 10 MG 1 tablet as ne eded Orally every 8 hours; Duration: 3 days 02/28/2025 Active FLUoxetine HCl 20 MG 1 capsule Orally On ce a day; Duration: 30 days 02/28/2025 Active Sublocade 300 MG/1.5ML 1.5 mL Subcutaneo us every 28 days 03/27/2025 Active hydrOXYzine Pamoate 25 MG 1 - 2 capsules up to 3 times a day as needed for anxiety (max 100 mg/day) Orally Once a day; Duration: 30 days 02/28/2025 Active Social History Tobacco Use: [...] phone, visiting friends or family, going to congregation or club meetings) More than 5 times a week How stressed are you? Stress is when someone feels tense, nervous, anxious, or can\t sleep at night because their mind is troubled A little bit In the past year have you sp ent more than 2 nights in a row in a correction, penitentiary, senior care center, or juvenile correctional facility? No Do [...] taken by DCFS, was yelled at, neglected. Residential for 18 months was traumatic. 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 for felony possession of [...] Psych Hospitalizations - 2014 - 2015 - [facility] x4 for SI/detox, 2010-[facility] for drug treatment Suicidal Ideation [...] taken by DCFS, was yelled at, neglected. Residential for 18 months was traumatic. 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 for felony possession of [...] Psych Hospitalizations - 2014 - 2015 - [facility] x4 for SI/detox, 2010-[facility] for drug treatment Suicidal Ideation [...] taken by DCFS, was yelled at, neglected. Residential for 18 months was traumatic. 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 for felony possession of [...] Psych Hospitalizations - 2014 - 2015 - [facility] x4 for SI/detox, 2010- [place] [facility] for drug treatment Suicidal Ideation Hx - [...] taken by DCFS, was yelled at, neglected. Residential for 18 months was traumatic. 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 for felony possession of [...] Psych Hospitalizations - 2014 - 2015 - [facility] x4 for SI/detox, 2010-[facility] for drug treatment Suicidal Ideation [...] taken by DCFS, was yelled at, neglected. Residential for 18 months was traumatic. 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 for felony possession of [...] Psych Hospitalizations - 2014 - 2015 - [facility] x4 for SI/detox, 2010-[facility] [place] for drug treatment Suicidal Ideation Hx - [...] taken by DCFS, was yelled at, neglected. Residential for 18 months was traumatic. 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 for felony possession of [...] Psych Hospitalizations - 2014 - 2015 - [facility] x4 for SI/detox, 2010-[facility] for drug treatment Suicidal Ideation [...] taken by DCFS, was yelled at, neglected. Residential for 18 months was traumatic. 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 for felony possession of [...] Psych Hospitalizations - 2014 - 2015 - [facility] x4 for SI/detox, 2010-[facility] [place] for drug treatment Suicidal Ideation Hx - [...] taken by DCFS, was yelled at, neglected. Residential for 18 months was traumatic. 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 for felony possession of [...] Psych Hospitalizations - 2014 - 2015 - [facility] x4 for SI/detox, 2010-[facility] for drug treatment Suicidal Ideation [...] taken by DCFS, was yelled at, neglected. Residential for 18 months was traumatic. 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 for felony possession of [...] Psych Hospitalizations - 2015 - 2016 - [facility] x4 for SI/detox, 2010-[facility] [place] for drug treatment Suicidal Ideation Hx - [...] W/U Status Risk Notes Problem Tobacco user (213934812) Nicotine dependence, unspecified, uncomplicated (F17.200) Active confirmed Problem Depression (911503480) Depression (F32.9) 02/29/20 25 Active confirmed Problem Posttraumatic stress disorder (71526493) PTSD (post-traumatic stress disorder) (F43.10) 02/29/20 25 Active confirmed Problem Vitamin D deficiency (50901460) Vitamin D deficiency (E55.9) Active confirmed Problem Hepatitis C (73443410) Hepatitis C (B19.20) Active confirmed Problem Generalized anxiety disorder (34027668) SHREE (generalized anxiety disorder) (F41.1) 02/29/20 25 Active confirmed Problem Overweight (037225222) Over weight (E66.3) Active confirmed Problem Laboratory test result abnormal (107436902) Abnormal laboratory test result (R89.9) Active confirmed Problem Methamphetamine abuse (306352731) Methamphetamine abuse (F15.10) 02/29/20 25 Active confirmed Problem Obesity (990931993) Obesity (BMI 30-39.9) (E66.9) Active confirmed Problem Carpal tunnel syndrome of right wrist (002113500016752) Carpal tunnel syndrome of right wrist (G56.01) Active confirmed Problem Obsessive-compulsi ve disorder (331993471) OCD (obsessive compulsive disorder) (F42.9) 02/29/20 25 Active confirmed Problem Opioid use disorder (9090087708) Opioid use disorder (F11.99) 02/29/20 25 Active confirmed Problem Lesion of ulnar nerve (902168640) 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) Active confirmed Vital Signs Heart Rate 80 /min 05/24/2025 Temperature 98.5 degrees Fahrenheit 03/27/2025 Respiratory Rate 16 /min 05/24/2025 Blood pressure diastolic 70 mm Hg 05/24/2025 Oximetry 97 % 05/24/2025 Height 64 in 05/24/2025 Blood pressure systolic 112 mm Hg 05/24/2025 Weight 215 lb 8 oz lbs 05/24/2025 BMI 36.99 kg/m2 05/24/2025 Encounters Encounter Location Date Provider Diagnosis [facility] [address] [place] [place] [address] 10/26/2024 Chloé Gentile [facility] [address] [facility] [place] [address] 02/23/2025 Chang Martínez [facility] [address] [facility] [place] [address] 10/17/2024 Chloé Gentile Establishing care with new [...] B35.3 and Nicotine dependence, unspecified, uncomplicated F17.200 [facility] [address] [place] [address] 02/08/2025 Chloé Gentile Adult general medica l exam Z00.00 ; Opioid use disorder F11.90 ; Methamphetamine abuse F15.10 ; History of syphilis Z86.19 ; Ulnar neuropathy of both upper extremities G56.23 ; Nutritional counseling Z71.3 and Nicotine dependence, unspecified, uncomplicated F17.[address] [address] 02/08/2025 Shannon Art Depression F32.9 ; Methamphetamine abuse F15.10 and Opioid use disorder F11.99 [facility] [address] [place] [address] 02/09/2025 Alber Downs Methamphetamine abus e F15.10 and Opioid use disorder F11.[address] [address] 02/23/2025 Chang Martínez Dietary counseling Z71.3 ; Obesity (BMI 30-39.9) E66.9 ; Opioid use disorder F11.99 and Methamphetamine abuse F15.[address] [place] [address] 02/28/2025 Radha Lopez PTSD (post-traumatic stress disorder) F43.10 ; OCD (obsessive compulsive disorder) F42.9 ; SHREE (generalized anxiety disorder) F41.1 ; Depression F32.9 ; Methamphetamine abuse F15.10 ; Opioid use disorder F11.99 and Medication management Z79.[address] [address] 02/28/2025 Chang Martínez Dietary counseling Z71.3 ; Obesity (BMI 30-39.9) E66.9 ; Muscle strain T14.8XXA and Carpal tunnel syndrome of right wrist G56.[address] [address] 03/01/2025 Maria De Jesus Arredondo Opioid use disorder F11.[address] [address] 03/12/2025 Maria De Jesus Mendezefrain [address] [address] 03/13/2025 Maria De Jesus Mendezefrain Opioid use disorder F11.99 ; Dietary counseling Z71.3 and Obesity (BMI 30-39.9) E66.[address] [address] 03/19/2025 Matthew Melendez Dietary counseling Z71.3 ; History of hepatitis C Z86.19 and Obesity (BMI 30-39.9) E66.[address] [address] 03/27/2025 Vannessa Malathi Opioid use disorder F11.99 and Over weight E66.[address] [address] 04/25/2025 Alber Downs [facility] [address] [place] [address] 04/26/2025 Judit Tanwangco Opioid use disorder F11.99 and Nicotine dependence, unspecified, uncomplicated F17.200 [facility] [address] [address] 05/24/2025 Judit Tanwangco Opioid use disorder F11.99 and Nicotine dependence, unspecified, uncomplicated F17.[address] [address] 10/06/2024 Shannon Art [address] [address] 10/18/2024 Chloé Gentile Abnormal laboratory test result R89.9 ; Vitamin D deficiency E55.9 and Syphilis A53.[address] [address] 10/26/2024 Chloé Gentile Syphilis A53.[address] [address] 10/26/2024 Chloé Gentile [address] [address] 10/27/2024 Chloé Gentile Syphilis A53.[address] [address] 02/02/2025 Chloé Gentile [address] [address] 02/15/2025 Grace Davis [address] [address] 02/20/2025 Chloé Gentile [facility] [address] [place] [address] 02/22/2025 Maria De Jesus Arredondo Opioid use disorder F11.[address] [place] [address] 02/28/2025 Radha Lopez [facility] [address] [place] [address] 03/01/2025 Maria De Jesus Arredondo Opioid use disorder F11.99 [facility] [address] [place] [address] 03/14/2025 Maria De Jesus Arredondo Opioid use disorder F11.[address] [place] [address] 04/03/2025 Alber Downs [address] [place] [address] 04/25/2025 Alber Downs [address] [place] [address] 05/01/2025 Alber Downs Assessments Encounter Date Diagnosis [...] so nurse is going to obtain from [facility]. Questions answered regarding Sublocade. She will follow up with [facility]. 03/14/2025 Opioid use disorder (ICD-10 - F11.99) 03/19/2025 History of hepatitis C (ICD-10 - Z86.19) - Pt reports of Hx of Hep C infxn (first dc back in 2017). Pt reports that she did not start treatment until 2019. Pt reportedly completed 4 (out of 8) week course of antivirals for Hep C then. Pt cited stress from passing of her mother causing her to forget to take meds. Pt recently had Hep C AB lab work (ordered by provider at [facility]). Lab noted Hep C AB positive (but no Hep C RNA detected). This signifies pt had prior Hep C infxn but not currently shedding virus. Pt is currently asymptomatic. Pt denies any chest pain, dyspnea, abd pain, yellowing of skin, fevers/chills, bloody/dark-tarry stools or headache/dizziness . No scleral icterus noted. Vital signs are re-assuring today. - Will Send referral for pt to [facility] with Infectious disease(ID). ID to determine if antiviral treatment for her prior Hep C hx is appropriate. Pt plans on returning to [facility]) after residential discharge. Pt states that she will est care with [facility] at after residential discharge. Pt prefers to see Specialists closure to [facility], if possible. Advise for pt to attempt to see Infectious disease specialist somewhere closer to . - Pt is currently a resident at [facility] unit for Hx of Substance use D/O. been there for one month. Last day is this . 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 Provided informed consent with understanding of [...] 10/26/2024 Other Mame Acosta 10/26/2024 01:23:32 PM [employer]PER[employer] >Urine test done. Results Negative. LAN ENGINEER Short notified. 10/17/2024 Other Learning About the Safe Use of Antibiotics material was discussed. Pt was educated on use of antibiotic medication including dosing, side effects, adverse effects and anticipated response. Pt was also educated on importance of completing full course of treatment as ordered. Patient voiced understanding of all. 02/08/2025 Other Continue treatment as recommended by [facility] staff. Encouraged patient to obtain routine medical care with patient's own primary care provider or establish as a patient at [facility] if no current primary care provider. 02/08/2025 [...] self-administe r their own oral medications per [facility] Protocol. 04/26/2025 Other Patient agrees to take medication as prescribed. Discussed medication side effects, adverse effects, risks, benefits, as well as interactions. Encouraged non-use of opioids. Encouraged participation in recovery groups. Patient may contact office with questions or concerns. 05/24/2025 Other Patient agrees to take medication as prescribed. Discussed medication side effects, adverse effects, risks, benefits, as well as interactions. Encouraged non-use of opioids. Encouraged participation in recovery groups. Patient may contact office with questions or concerns. Plan Of Treatment Future Test Test Name Order Date CBC With Differential/Platelet* 02/24/20 25 Hepatitis C Virus Antibody w/Rflx to [place] ntitative Real-time PCR ([id number]) 02/23/2025 CMP 14 Comprehensive Metabolic Panel* Insurance Providers Payer Name Payer Address Payer Phone Subscriber Number Group Number Insured Name Patient Relationship to Insured Coverage Start Date Coverage End Date [facility] Attn Claims Department [address] [place] [phone] [id number] Ingrid Long Self - patient is the insured 4 [employer] Attn Claims Department [address] [place] [phone] [id number] Ingrid Long Self - patient is the insured 5 [employer] Attn Claims Department [address] [place] [phone] [id number] LongIngrid garrison Self - patient is the insured 5 Medications Administered Medication Instructions Date of Administration Dosage Notes Sublocade 03/27/2025 300 mg Quality Measurement Specialist: Alba Meza 03/27/2025 11:52:53 AM CDT > Pt tolerated well. No s&s of adverse reaction. Sublocade 04/26/2025 380 mg Steven, Alba L 04/26/2025 10:54:41 AM CDT > Pt tolerated well. No s&s of adverse reaction. Sublocade 05/24/2025 300 mg Steven, Alba L 05/24/2025 11:16:03 AM CDT >Pt tolerated well. No s&s of adverse reaction. Medical (General) History Medical History History ICD Code hepatitis C DOC: Meth, Fentanyl Right shoulder pain Right hand swelling Surgical History Surgery Date(Month/Year) Gall Bladder Removed hysterectomy Hospitalization History Reason Date(Month/Year) [facility] 2010 [place] [facility] x4 2015 [facility] (detox)
[2025-06-23 13:07] VITALS: BP 134/79; PULSE 74; RESP 16; TEMP 36.4; O2SAT 97
--- NOTE | 2025-06-23 13:18 | ED.GENADULT ---
HPI - General Adult General Chief complaint: Extremity Injury, Upper Stated complaint: Left arm pain-no known injury Time Seen by Provider: 06/23/25 13:05 History of Present Illness HPI narrative: 44-year-old female presents to the emergency department for evaluation for left shoulder pain. Patient states she does do heavy lifting at work. Patient states that she does have some increased tightness left lateral trapezius and that she does have pain that radiates down her left arm. Patient denies any specific incident fall or injury. Related Data Home Medications ?Medication ?Instructions ?Recorded ?Confirmed ?Last Taken ?Type buprenorphine 300 mg/1.5 mL mg subcut 05/11/25 Unknown History solution,exten.rel.subcutaneous syringe (Sublocade) hydroxyzine pamoate 25 mg capsule mg 05/11/25 Unknown History Allergies Allergy/AdvReac Type Severity Reaction Status Date / Time Penicillins Allergy Severe Rash Verified 06/23/25 12:56 meperidine (From Demerol) AdvReac Mild Nausea and Verified 06/23/25 12:56 Vomiting Review of Systems Review of Systems: All systems reviewed & are unremarkable except as noted in HPI and below PMFSH Past Medical History Medical History Anemia Anxiety BMI 38.0-38.9,adult Cardiac arrhythmia Depression Hepatitis Hepatitis C Right carpal tunnel syndrome Surgical History Surgical History History of endometrial ablation History of hysterectomy Hx of cholecystectomy Hx of tubal ligation Family History Family History Father Unknown family medical history Mother , in 2019 from CHF Hypertension Social History Social History Smoking packs per day: 0.5 Smoking cigarettes per day: 10.0 Years smoked: 20 Smoking pack-years: 10.00 Smoking status: Current every day smoker Tobacco type: cigarettes Second hand tobacco smoke exposure: No Alcohol intake: never Substance use: current Substance use type: marijuana Other substance usage details: daily use of marijuana Living arrangements: with roommate(s) Occupation/Education: occupation Gender identity (if verbalized by the patient): Female Sexual Orientation (if Verbalized by the Patient): Straight or Heterosexual Spiritual care concerns: No Exam Narrative: APPEARANCE: Well appearing, no pain, no distress, well-nourished. HEAD: normocephalic, atraumatic. EYES: PERRLA/EOMI, conjunctivae clear. NOSE: Normal no drainage EARS:TMS clear with good light reflex. THROAT: Pharynx clear, no exudate. NECK: Supple. No adenopathy, no masses. RESPIRATORY: Airway patent, respirations nonlabored. Clear to auscultation bilaterally, no rales, rhonchi, wheezing. CARDIOVASCULAR: Regular rate and rhythm without murmurs rubs or gallops. ABDOMINAL: Soft, nontender, nondistended, normal bowel sounds MUSCULOSKELETAL: No tenderness to palpation of left shoulder patient does have tenderness to left lateral trapezius NEURO: Alert. Cranial nerves II through XII intact. Good gait. Good coordination SKIN: Warm, dry. Normal Color Course Vital Signs Vital signs: Vital Signs Temperature 97.6 F 06/23/25 13:07 Pulse Rate 74 06/23/25 13:07 Respiratory Rate 16 06/23/25 13:07 Blood Pressure 134/79 06/23/25 13:07 Pulse Oximetry 97 06/23/25 13:07 Temperature 97.6 F 06/23/25 13:07 Pulse Rate 74 06/23/25 13:07 Respiratory Rate 16 06/23/25 13:07 Blood Pressure 134/79 06/23/25 13:07 Pulse Oximetry 97 06/23/25 13:07 Medical Decision Making [facility] Narrative Medical decision making narrative: 44-year-old female presents emergency department for evaluation for left shoulder pain. X-ray will be ordered to evaluate for acute pathology. X-rays negative for any abnormality. Patient was provided a sling for comfort. Patient also requested a work note. She was also provided Flexeril for pain medication advised to take Tylenol and ibuprofen for pain control. Differential Diagnosis Differential Diagnosis: Trapezius strain, cervical to block the, shoulder fracture, shoulder strain Vital Signs Vital Signs: Vital Signs Temperature 97.6 F 06/23/25 13:07 Pulse Rate 74 06/23/25 13:07 Respiratory Rate 16 06/23/25 13:07 Blood Pressure 134/79 06/23/25 13:07 Pulse Oximetry 97 06/23/25 13:07 Temperature 97.6 F 06/23/25 13:07 Pulse Rate 74 06/23/25 13:07 Respiratory Rate 16 06/23/25 13:07 Blood Pressure 134/79 06/23/25 13:07 Pulse Oximetry 97 06/23/25 13:07 Imaging Data Radiologist's impression: Impressions Shoulder X-Ray 06/23/25 13:52 IMPRESSION: Mild left glenohumeral osteoarthritis. No acute osseous abnormality. Discharge Plan Discharge Clinical Impression: Cervical radiculopathy, Strain of cervical portion of left trapezius muscle Patient Disposition: Home Condition: Stable Instructions: Antibiotic Form, How to Use a Sling (ED) Additional Instructions: Tylenol and ibuprofen for pain control. Flexeril for muscle spasm. Sling as directed. Have close follow-up with your primary care physician. Patient Language: Greek Prescriptions: New cyclobenzaprine 10 mg tablet 10 mg PO BID PRN (Reason: muscle spasm) Qty: 14 0RF No Action hydroxyzine pamoate 25 mg capsule Sublocade 300 mg/1.5 mL solution, extended rel syringe SUBCUT clindamycin HCl [Cleocin HCl] 300 mg capsule 300 mg PO Q6H 10 Days Qty: 40 0RF ibuprofen 800 mg tablet 800 mg PO TID PRN (Reason: pain) Qty: 30 0RF Follow-up/Referrals: Short,Chloé Hercules NP [Primary Care Provider] - Stand Alone Forms: Work/School Release IP
== END 2025-06-23 14:11 | disposition home or self-care (01) ==
PROVIDERS: Emergency Provider Emergency Medicine; PCP Nurse Practitioner Family
DX: M54.12 Radiculopathy, cervical region (principal); S16.1XXA Strain of muscle, fascia and tendon at neck level, initial encounter; Z86.2 Personal history of diseases of the blood and blood-forming organs and certain disorders involving the immune mechanism; F17.210 Nicotine dependence, cigarettes, uncomplicated; Z86.19 Personal history of other infectious and parasitic diseases; Z90.710 Acquired absence of both cervix and uterus; Z90.49 Acquired absence of other specified parts of digestive tract; M19.012 Primary osteoarthritis, left shoulder; X50.0XXA Overexertion from strenuous movement or load, initial encounter
CPT/HCPCS: 73030; 99283; A4565

== ENCOUNTER 2025-08-31 01:03 | Day surgery (SDC) | payer OTHER, SELFPAY ==
[2025-08-21 14:08] VITALS: BMI 38.5
[2025-08-31 11:41] VITALS: BP 132/81; PULSE 69; RESP 19; TEMP 36.2; O2SAT 99
[2025-08-31] MEDS: LACTATED RINGERS 1,000 ML 150 ML IV CONT (11:51)
--- NOTE | 2025-08-31 11:56 | WPDANESEPPF ---
Anes - Initial Pre Proc Eval Procedure: Operation Date: 08/31/25 12:30 Proposed Procedures p Screening Colonoscopy - Brian Saravia MD Date/Time: 08/31/25 11:56 Surgeon: Brian Saravia MD Pre Op Diagnosis: Screening Patient Data Age: 44 Gender: F Height: 1.65 m Weight: 107.7 kg Last Vital Signs Temp 36.2 C L 08/31/25 11:41 Pulse 69 08/31/25 11:41 Resp 19 08/31/25 11:41 BP 132/81 08/31/25 11:41 Pulse Ox 99 08/31/25 11:41 O2 Del Method Room Air 08/31/25 11:41 Allergies Allergy/AdvReac Type Severity Reaction Status Date / Time Penicillins Allergy Severe Rash Verified 08/31/25 11:40 meperidine (From Demerol) AdvReac Mild Nausea and Verified 08/31/25 11:40 Vomiting Home Medications ?Medication ?Instructions ?Recorded ?Confirmed ?Type buprenorphine 300 mg/1.5 mL 300 mg subcut MONTHLY 05/11/25 08/31/25 History solution,exten.rel.subcutaneous syringe (Sublocade) hydroxyzine pamoate 25 mg capsule 25 mg PO Q6-8H PRN anxiety 05/11/25 08/21/25 History ibuprofen 800 mg tablet 800 mg PO TID PRN pain #30 tabs 05/11/25 08/21/25 Rx cyclobenzaprine 10 mg tablet 10 mg PO BID PRN muscle spasm #14 06/23/25 08/21/25 Rx tabs atorvastatin 10 mg tablet 10 mg PO DAILY 08/21/25 08/31/25 History Patient hx anesthesia problems: none Family hx anesthesia problems: none Results Review: All pre-operative results and documents have been reviewed as part of the pre-operative evaluation. [facility] Past Medical History Medical History (Updated 08/30/25 @ 15:28 by Manpreet Hopkins DO) Narcotic abuse in remission PTSD (post-traumatic stress disorder) Right carpal tunnel syndrome Hepatitis Cardiac arrhythmia Anemia BMI 38.0-38.9,adult Anxiety Depression Hepatitis C Surgical History Surgical History History of hysterectomy Hx of tubal ligation History of endometrial ablation Hx of cholecystectomy Family History Family History Father Unknown family medical history Mother , in 2019 from CHF Hypertension Social History Social History Smoking packs per day: 0.5 Smoking cigarettes per day: 10.0 Years smoked: 20 Smoking pack-years: 10.00 Smoking status: Former smoker Tobacco type: cigarettes Second hand tobacco smoke exposure: No Alcohol intake: never Substance use: former Substance use type: former substance user, marijuana, heroin, opiates, painkillers, methamphetamine and other Other substance usage details: FENTANYL Last use: FEBRUARY 04, 2025 Living arrangements: nursing home Additional living arrangements comments: [facility] Occupation/Education: occupation Gender identity (if verbalized by the patient): Female Sexual Orientation (if Verbalized by the Patient): Straight or Heterosexual Spiritual care concerns: No Anes - Eval Final PreProcedure Day of Procedure 08/31/25 11:56 Patient weight: obese Heart: regular rate and rhythm Lungs: clear to auscultation Airway: Mallampati scale class II and special considerations poor dentition Neurological: alert and oriented Last oral intake: >/= 8 hours ASA classification: III Emergent: no Anesthetic plan: proceed Anesthesia type and monitoring: general GIVS and standard monitoring Results Review: All pre-operative results and documents have been reviewed as part of the pre-operative evaluation. Informed Consent: The patient's anesthetic plan and its attendant risks and benefits were discussed with the patient/family/POA. Questions were solicited and answers provided to the satisfaction of the patient/family/POA.
--- NOTE | 2025-08-31 12:57 | P.HP_ITS ---
H&P: HPI History of Present Illness Date/Time: 08/31/25 12:57 Chief Complaint: Screening colonoscopy Narrative: This is the patient's first colonoscopy. There are no GI symptoms and there is no family history of colorectal cancer. Review of Systems Review of Systems: All systems reviewed & are unremarkable except as noted in HPI and below PMFSH Past Medical History Medical History (Updated 08/31/25 @ 12:57 by Brian Saravia MD) Narcotic abuse in remission PTSD (post-traumatic stress disorder) Right carpal tunnel syndrome Hepatitis Cardiac arrhythmia Anemia BMI 38.0-38.9,adult Anxiety Depression Hepatitis C Surgical History Surgical History History of hysterectomy Hx of tubal ligation History of endometrial ablation Hx of cholecystectomy Family History Family History Father Unknown family medical history Mother , in 2019 from CHF Hypertension Social History Social History Smoking packs per day: 0.5 Smoking cigarettes per day: 10.0 Years smoked: 20 Smoking pack-years: 10.00 Smoking status: Former smoker Tobacco type: cigarettes Second hand tobacco smoke exposure: No Alcohol intake: never Substance use: former Substance use type: former substance user, marijuana, heroin, opiates, painkillers, methamphetamine and other Other substance usage details: FENTANYL Last use: FEBRUARY 04, 2025 Living arrangements: detention Additional living arrangements comments: [facility] Occupation/Education: occupation Gender identity (if verbalized by the patient): Female Sexual Orientation (if Verbalized by the Patient): Straight or Heterosexual Spiritual care concerns: No Meds Home Medications and Allergies Home Medications ?Medication ?Instructions ?Recorded ?Confirmed ?Type buprenorphine 300 mg/1.5 mL 300 mg subcut MONTHLY 04/2308/31/25 History solution,exten.rel.subcutaneous syringe (Sublocade) hydroxyzine pamoate 25 mg capsule 25 mg PO Q6-8H PRN a nxiety 05/11/25 08/21/25 History ibuprofen 800 mg tablet 800 mg PO TID PRN pain #30 t abs 05/11/25 08/21/25 Rx cyclobenzaprine 10 mg tablet 10 mg PO BID PRN muscle s pasm #14 06/23/25 08/21/25 Rx tabs atorvastatin 10 mg tablet 10 mg PO DAILY 08/21/2508/22 History Allergies Allergy/AdvReac Type Severity Reaction Status Date / Time Penicillins Allergy Severe Rash Verified 08/31/25 11:40 meperidine (From Demerol) AdvReac Mild Nausea and Verified 08/31/25 11:40 Vomiting Vital Signs Vital Signs - 24 hr 08/31/25 11:41 Temperature 97.1 F L Pulse Rate 69 Respiratory Rate 19 Blood Pressure 132/81 Pulse Oximetry 99 Oxygen Delivery Room Air Exam Const: General: cooperative and healthy appearing Resp: Effort & Inspection: normal respiratory effort and able to speak in complete sentences Auscultation: clear to auscultation bilaterally Cardio: Rate: regular rate Rhythm: regular rhythm GI: Inspection: normal to inspection GI Palp: No No hepatosplenomegaly present Auscultation: normal bowel sounds Rectal Exam: deferred Skin: General skin exam: normal color Psych: Appearance: grossly normal Mental Status: mental status grossly normal Assessment and Plan Assessment and plan (1) Encounter for screening colonoscopy: Code(s): Z12.11 - Encounter for screening for malignant neoplasm of colon Status: Acute Assessment and Plan: The patient is deemed a good candidate for the procedure. Consent signed. Will proceed.
[2025-08-31] MEDS: SIMETHICONE ORAL SUSPENSION 20 MG/0.3 ML 30 ML BOTTLE 0.6 ML IRRIGATION (13:10)
[2025-08-31 13:20] VITALS: BP 124/80; PULSE 78; RESP 22; O2SAT 99
[2025-08-31 13:30] VITALS: BP 120/75; PULSE 83; RESP 16; O2SAT 100
[2025-08-31 13:40] VITALS: BP 127/81; PULSE 74; RESP 18; O2SAT 100
== END 2025-08-31 13:54 | disposition home or self-care (01) ==
PROVIDERS: PCP Family Medicine; Referring Provider Family Medicine; Visit Provider Internal Medicine Gastroenterology
PROC: 0DJD8ZZ Inspection of Lower Intestinal Tract, Via Natural or Artificial Opening Endoscopic (ICD-10-PCS; CPT 45378; principal; 2025-08-31 12:30)
DX: Z12.11 Encounter for screening for malignant neoplasm of colon (principal); D64.9 Anemia, unspecified; F41.9 Anxiety disorder, unspecified; F32.A Depression, unspecified; F43.10 Post-traumatic stress disorder, unspecified; I49.9 Cardiac arrhythmia, unspecified; E66.9 Obesity, unspecified; Z68.39 Body mass index [BMI] 39.0-39.9, adult; Z79.1 Long term (current) use of non-steroidal anti-inflammatories (NSAID); Z98.890 Other specified postprocedural states; Z98.51 Tubal ligation status; Z98.891 History of uterine scar from previous surgery; Z90.49 Acquired absence of other specified parts of digestive tract; Z87.891 Personal history of nicotine dependence
CPT/HCPCS: 45378; J2003; J2704; J7120